=== PATIENT | male | born 1955 | race Caucasian/White ===

== ENCOUNTER → 2023-06-15 | Outpatient (CLI) | payer MEDICARE, OTHER, SELFPAY ==
--- NOTE | 2023-06-15 12:55 | ART_ITS ---
Reason For Study: Stricture of artery Procedure A bilateral lower extremity continuous wave Doppler with analog waveform analysis and ankle brachial indexes. Left Segmental Pressures Left brachial= 130mmHg. Left posterior tibial artery = 171mmHg. Left dorsalis pedis artery = 166mmHg. Left digit = 128 mmHg. The left dorsalis pedis waveforms are triphasic. The left posterior tibial artery waveforms are triphasic. Right Segmental Pressures Right brachial= 127mmHg. Right posterior tibial artery = 180mmHg. Right dorsalis pedis artery = 179mmHg. Right digit = 115 mmHg. The right dorsalis pedis waveforms are triphasic. The right posterior tibial artery waveforms are triphasic. Indices The right ankle brachial index by the dorsalis pedis is 1.38. The right ankle brachial index by the posterior tibial artery is 1.38. The right digital-brachial index is 0.88. The left ankle brachial index by the dorsalis pedis is 1.28. The left ankle brachial index by the posterior tibial artery is 1.32. The left digital-brachial index is 0.98. VL/Ankle Brachial Index Interpretation Summary Bilateral normal at rest with GALE 1.38 and 1.28. Digits 0.88 and 0.98. Ordering Physician: Gorge Montez Referring Physician: Merna Israel Performed By: Caitlin Bean RVT
== END | disposition home or self-care (01) ==
LOC: CVS 12:54
PROVIDERS: PCP Internal Medicine; Referring Provider Surgery Vascular Surgery; Visit Provider Surgery Vascular Surgery
DX: I77.1 Stricture of artery (principal); I70.213 Atherosclerosis of native arteries of extremities with intermittent claudication, bilateral legs
CPT/HCPCS: 93922

== ENCOUNTER → 2024-06-08 | Outpatient (CLI) | payer MEDICARE, OTHER, SELFPAY ==
--- NOTE | 2024-06-08 12:28 | RAD_ITS ---
CLINICAL HISTORY: Male, 69 years old. Anterior cruciate ligament injury. PROCEDURE: ARTHROGRAM - LEFT KNEE CONSENT: The procedure as well as the benefits and possible complications were explained to the patient. Informed consent was obtained. FLUOROSCOPY TIME (if supplied): (48 seconds) minutes/seconds. 3.6 mGy. Injection Information: 10 cc of dilute MRI contrast material. Number of images obtained: 1 TECHNIQUE: (All elements of maximal sterile barrier technique followed, including US elements as applicable) Under direct fluoroscopic guidance, a right knee arthrogram was performed with a 22-gauge spinal needle. 10 cc of dilute MRI contrast was injected. The patient tolerated the procedure well. RAD/Arthrogram Knee IMPRESSION: Right knee arthrogram for CT examination. Electronically Signed: Josh Morin MD at 13:40 EDT ,
--- NOTE | 2024-06-08 12:29 | CT_ITS ---
STUDY: CT ARTHROGRAM OF THE RIGHT KNEE REASON FOR EXAM: Male, 69 years old. Sprain of anterior cruciate ligament of right knee, subsequent encounter. RADIATION DOSAGE (If Supplied By Facility): CTDIvol = ( 15.35 ) mGy, DLP = ( 480.41 ) mGycm TECHNIQUE: Dilute iodinated contrast was injected into the right knee joint. Transaxial CT imaging of the right knee was performed. Coronal and sagittal reformatted images were also obtained. Individualized dose optimization techniques were used for this CT. COMPARISON: None. FINDINGS: There is a suspected tear of the ACL (sagittal reformat series 601 images 32-33). There is no discrete meniscal tear. Normal medial femoral condyle and medial tibial plateau. There is preservation of the articular joint space of the medial knee compartment. Normal lateral femoral condyle and lateral tibial plateau. There is preservation of the articular joint space of the lateral knee compartment. There is moderate grade chondromalacia patellae. Normal proximal tibiofibular articulation. The quadriceps tendon is grossly normal. The patellar tendon is grossly normal. Normal Hoffa''s fat pad. The soft tissues are unremarkable. CT/Extremity Lower WITH Contrast IMPRESSION: Suspected ACL tear. Moderate grade chondromalacia patellae. Electronically Signed: Jj Liao MD at 14:46 EDT ,
[2024-06-08] MEDS: Lidocaine 2% (5ml sdv) 5 ML VIAL.MPF INFILT (13:10)
[2024-06-08] MEDS: Gadoterate Meglumine Diluted 10 ML, Iopamidol 5 ML, Lidocaine 1% (20 ml mdv) 5 ML, Epin... INTRAARTIC (13:13)
[2024-06-08] MEDS: Iopamidol 10 ML in Syringe 1 EACH 600 ML INTRAARTIC (13:13)
--- NOTE | 2024-06-08 13:41 | PCM.OP.PRO ---
Procedure Report Date of Procedure: 06/08/24 Assessment & Plan Assessment/Plan (1) Sprain of right knee: QUALIFIERS: Encounter type: initial encounter Involved ligament of knee: unspecified ligament Qualified Code(s): S83.91XA - Sprain of unspecified site of right knee, initial encounter PLAN: PROCEDURE: Arthrogram-right knee ORDERING PROVIDER: Dr. Hogan INDICATION: Male, 69 years old. Right knee sprain. FLUOROSCOPY TIME (if supplied): 0 minutes/48 seconds. 2.9 mGy PROVIDER: Casie Irwin APRN-RESTAURANT SHIFT SUPERVISOR CONSENT: The procedure as well as the benefits and possible complications including bleeding and infection were explained to the patient. Informed consent was obtained. TECHNIQUE: The patient was positioned supine. The overlying skin was prepped and draped in the usual sterile fashion. Following injection of local anesthetic with 2% lidocaine and under direct fluoroscopic guidance, a 22-gauge spinal needle was placed into the right knee joint. 2 cc of Isovue 300 was injected for confirmation. Following this, 10 cc of arthrogram contrast (gadoterate, iopamidol, lidocaine, and epinephrine), compounded by pharmacy, was injected. All elements of maximal sterile barrier technique followed. Patient tolerated procedure well. IMPRESSION: Successful fluoroscopic guided right knee arthrogram. Procedures Radiology Radiology Xray Procedures: [id number] Arthrogram Knee Multi Select Codes Radiology Rad Xray Procedures: [id number] Fluoroscopic guidance for needle placement
== END | disposition home or self-care (01) ==
LOC: RAD 12:25
PROVIDERS: PCP Internal Medicine; Referring Provider Specialist; Visit Provider Specialist
DX: S83.511D Sprain of anterior cruciate ligament of right knee, subsequent encounter (principal); M25.361 Other instability, right knee
CPT/HCPCS: 27369; 73580; 73701; Q9967

== ENCOUNTER 2024-11-22 11:40 | Inpatient (IN) | payer MEDICARE, OTHER, SELFPAY ==
[2024-11-22 13:37] LABS: Absolute Lymphocyte Count 0.97 X10^3/uL (0.83-4.51); Absolute Neutrophil Count 10.4 X10^3/uL (2.0-7.7); Basophil# 0.02 X10^3/uL; Basophil% 0.2 % (0-1); Eosinophil# 0.11 X10^3/uL; Eosinophils% 0.9 % (0-5); Hematocrit 33.7 % (40-54); Hemoglobin 11.3 g/dL (13.0-16.5); Lymphocyte # 0.97 X10^3/ul (0.83-4.51); Lymphocyte % 7.6 % (19-41); Mean Corp Hgb Conc 33.5 g/dL (32-36); Mean Corpuscular Hgb 29.6 pg (27.0-32.0); Mean Corpuscular Volume 88.2 fL (80-94); Mean Platelet Vol. 8.8 fl (6.2-12.0); Monocyte# 1.19 X10^3/uL; Monocyte% 9.4 % (0-10); NRBC Flagged by Analyzer 0 % (0-5); Neutrophil # 10.39 X10^3/uL (2.7-7.7); Neutrophil % 81.7 % (47-70); Platelet Count 236 K/mm3 (150-450); RBC Distribution Width CV 12.7 % (11.6-14.6); RBC Distribution Width SD 40.8 fl (35.1-43.9); Red Blood Count 3.82 M/mm3 (4.6-6.2); White Blood Count 12.7 K/mm3 (4.4-11.0)
[2024-11-22] MEDS: Haloperidol Lactate 5 MG/ML Vial 2 MG IM (13:43)
[2024-11-22] MEDS: cycloBENZAPRine HCl 10 MG Tablet PO ×2 (13:50→21:45)
[2024-11-22] MEDS: Acetaminophen 500 MG Tablet 1000 MG PO ×2 (13:50→21:44)
[2024-11-22 13:54] LABS: ALB/GLOB Ratio 0.8 RATIO (0.9-2.4); AST(SGOT) 29 U/L (15-37); Alanine Aminotransfer ALT/SGPT 41 U/L (16-61); Albumin, Serum 2.6 g/dL (3.2-5.0); Alkaline Phosphatase 85 U/L (45-117); Anion Gap 9 (5-15); BUN 20 mg/dL (7-18); BUN/Creat Ratio 29.4 RATIO (10-20); Calcium,Total 8.5 mg/dL (8.5-10.1); Chloride 100 mmol/L (98-107); Creatinine, Serum 0.68 mg/dL (0.70-1.30); EST Glomerular Filtration Rate 122 mL/min (>60); Est Glom Filt Rate - Afr Amer 148 mL/min (>60); Globulin 3.4 g/dL (2.2-4.2); Glucose 169 mg/dL (74-106); Magnesium 2.2 mg/dL (1.6-2.6); Phosphorus 2.3 mg/dL (2.5-4.9); Potassium 3.8 mmol/L (3.5-5.1); Sodium Level 133 mmol/L (136-145)
[2024-11-22 14:27] VITALS: BMI 29.4
[2024-11-22 14:28] VITALS: BP 128/60; PULSE 60; RESP 18; TEMP 36.6; O2SAT 90
[2024-11-22 14:42] LABS: Bacteria 0 SEEN /hpf (None Seen); Mucous, Urine 0 SEEN /hpf (<or=2+)
[2024-11-22 14:51] LABS: Color, Urine Yellow (Yellow); Glucose, Dipstick 1000 mg/dl (Normal); Ketone-Dipstick 15 mg/dl (Negative); Leukocyte Esterase-Dipstick 100 /ul (Negative); Nitrite-Dipstick Negative (Negative); Occult Blood-Urine 250 /ul (Negative); Protein-Dipstick 30 mg/dl (Negative); Urine Bilirubin Dipstick Negative (Negative); Urine Clarity Sl. Cloudy (Clear); Urine Urobilinogen 1 mg/dl (Normal)
[2024-11-22 14:57] LABS: Red Blood Cells-Urine 25-50 SEEN /hpf (0-5); Squamous Epithelial Cells - UA 0-5 SEEN /hpf (0-5); White Blood Cells 10-25 SEEN /hpf (0-5)
[2024-11-22 14:58] LABS: Yeast-Urine RARE /hpf (None Seen)
[2024-11-22 17:02] LABS: Bedside Glucose 152 mg/dL (74-106)
[2024-11-22] MEDS: glipiZIDE XL 5 MG Tablet 10 MG PO (17:52)
[2024-11-22] MEDS: Smz/Tmp Ds Tablet 1 TABLET PO (17:53)
[2024-11-22 18:00] VITALS: BP 135/66; PULSE 60; RESP 18; TEMP 37.1; O2SAT 94
[2024-11-22 20:09] VITALS: PULSE 60; RESP 18; O2SAT 92
[2024-11-22] MEDS: Senna/Docusate Sodium 1 Tablet 2 TABLET PO (21:44)
[2024-11-22] MEDS: Sotalol Hydrochloride 80 MG Tablet 120 MG PO (21:44)
[2024-11-22] MEDS: Atorvastatin Calcium 10 MG Tablet PO (21:45)
[2024-11-22 22:07] LABS: Bedside Glucose 148 mg/dL (74-106)
--- NOTE | 2024-11-22 23:44 | NURSING ---
pt resting in bed awake, talking to self, reaching in air with both arms like he is working on something, mentioned electrical box. pt with slurred speech, difficult to understand at times. bed exit alarm in place. call light in reach. RT valdovinos to foot very cold to touch compared to Left. dark dry scab noted on 2nd digit of rt foot. pt denies pain.
[2024-11-23 05:10] VITALS: BP 110/52; PULSE 60; RESP 20; TEMP 37.7; O2SAT 92
[2024-11-23] MEDS: Enoxaparin 40 MG/0.4 ML Syringe SC (05:30)
[2024-11-23] MEDS: Acetaminophen 500 MG Tablet 1000 MG PO ×3 (05:30→21:36)
[2024-11-23] MEDS: cycloBENZAPRine HCl 10 MG Tablet PO (05:30)
--- NOTE | 2024-11-23 06:00 | EKG12_ITS ---
Test Reason : AM EKG Blood Pressure : */* mmHG Vent. Rate : 67 BPM Atrial Rate : 67 BPM P-R Int : 248 ms QRS Dur : 192 ms QT Int : 544 ms P-R-T Axes : * -22 106 degrees QTcB Int : 574 ms AV dual-paced rhythm with prolonged AV conduction with occasional ventricular- paced complexes Abnormal ECG No previous ECGs available Confirmed by LORRI VERDUZCO, STANLEY ([id number]), website/blog editor MARCELL WINSLOW ([id number]) on 11/27/2024 1:58:09 PM Referred By: Donna Walton Confirmed By: STANLEY BLACKMON MD
[2024-11-23 07:48] LABS: Bedside Glucose 164 mg/dL (74-106)
[2024-11-23] MEDS: hydroCHLOROthiazide 6.25mg TAB 12.5 MG PO (09:06)
[2024-11-23] MEDS: metFORMIN (XR) 500 MG Tablet 750 MG PO (09:06)
[2024-11-23] MEDS: Fluconazole 100 MG Tablet 200 MG PO (09:06)
[2024-11-23] MEDS: Losartan Potassium 100 MG Tablet PO (09:06)
[2024-11-23] MEDS: Multivitamins,Therapeutic Tablet 1 TABLET PO (09:06)
[2024-11-23] MEDS: Empagliflozin 25 MG Tablet PO (09:06)
[2024-11-23] MEDS: Famotidine 20 MG Tablet PO (09:06)
[2024-11-23] MEDS: Senna/Docusate Sodium 1 Tablet 2 TABLET PO ×2 (09:06→21:35)
[2024-11-23] MEDS: glipiZIDE XL 5 MG Tablet 10 MG PO (09:06)
[2024-11-23] MEDS: Aspirin E.C. 81 MG Tablet PO (09:07)
[2024-11-23] MEDS: Smz/Tmp Ds Tablet 1 TABLET PO (09:07)
--- NOTE | 2024-11-23 09:27 | PCM.HP.STD ---
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 He has had a known mass of the spinal cord since 2019. The mass was being monitored and no intervention was done. Recently he has been having a lot of falls, difficulty walking and bowel and bladder incontinence. On 11/14/2024 at [facility] he underwent C4-T3 posterior decompression and fusion with tumor debulking. Preoperatively he had a transthoracic echocardiogram that showed an EF of 45 to 50% with left ventricular hypokinesis. No atrial thrombus was observed. Bilateral lower extremity ultrasounds were obtained and were negative for DVT. He had a Mitchell catheter placed for urine retention and developed a UTI. He has been on Bactrim. we received no culture results. He also had yeast in the urine and was started on Diflucan. He has QT prolongation. He has had confusion which was attributed to UTI but, he has been progressively more confused despite antibiotics. A CTH was on on 11/20/24 per the therapy notes but, the results were not forwarded from [facility] with the notes we received. The physician PN from 11/21/24 says he is A and oriented X3. Therapy notes from 11/20/24 say he was mildly confused. His tells me that over the past 3 days the confusion has increased. The physician note from 11/21 also says the face is symmetric and he had 5/5 strength in the LLE with weakness in the R arm and R leg. The patient auto dc'd the drain on 11/20/24 while confused. The patient was transferred to the acute inpt rehab unit at [facility] on 11/22/24 for 3 hours of therapy daily to restore function/independence at or near his level prior to the recent surgery.. At arrival he was markedly confused, restless, trying to climb out of bed and not cooperative. We were told on 11/22/24 by [facility] that he was A&O X3 at the time of DC. He had a Mitchell catheter present at admission to rehab. He is not on medication for BPH. He was given 2 mg of Haldol IM and he calmed down and was more cooperative. He is febrile today with a temp of 99.8. VSS-blood pressures since arrival on rehab have ranged from 110/52 to 135/66. Heart rate is 60 and EKG shows completely paced. The QTc is 574. Maintaining appropriate oxygen saturation on RA-98 to 94%. Oral intake - FLUIDS poor blood sugars have ranged from 1 48-1 64 since arrival on acute rehab. The blood sugar record was reviewed. Discussed with nursing -markedly confused. Incontinent of stool. Reviewed the THERAPY notes Medication list reviewed. All lab was personally reviewed. The white blood cell count is elevated at 12.7 with 82% neutrophils. The white blood cell count at [facility] on 11/21/2024 was 10.6. Hemoglobin is 11.3. With normochromic normocytic indices. Platelets are within normal limits. Sodium is low at 133 which is stable. Serum bicarb is normal at 24. The BUN is 20 with a creatinine of 0.68 which is stable. Phosphorus is low at 2.3 and magnesium is 2.2. LFTs are unremarkable. UA from admission shows 25-50 RBCs per high-power field and 10-25 WBCs. Was nitrite negative. No bacteria seen. No DC summary from [facility]. No cultures sent. No mention of increased confusion on 11/20/24 and no mention of results of the CT head done 11/20/24.......this was only mentioned in a therapy note. Deondre's Amanda came in and I was able to review the MY CHART from [facility]. Urine culture only grew yeast so no need for Bactrim. Last CXR from 11/18/2024 showed no infiltrates and did not mention atelectasis. The patient recheck prior to surgery showed he was 99% paced. Pathology report is still pending at the time of discharge from [facility]. Echocardiogram showed a 50% ejection fraction with stage I diastolic dysfunction. Aortic root was mildly dilated. No significant valvular heart disease. No thrombus in the ventricles. Ester tells me that the gibberish that he has been speaking is new and he is also been having trouble with word finding. 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 He has been weak on his right side in the recent past however he was able to hold a cup with his right hand and use his right hand but now he cannot even hold a fork or a cup with his right hand. So he has increased weakness and increased numbness. The right leg has been weak. She tells me the left side was very limp/weak while at [employer]. Now he is trying to push with his left lower extremity and left arm when we ask him to move his right side. 1. LOC Alert: 0 2. LOC/Orientation: 2 3. LOC Commands: 0 4. Horizontal extraocular movements : 1 5. Visual sheriff: 0 6. Facial Paresis: 1 7. Motor arm left: 0 8. Motor arm right: 1 9. Motor leg left: 2 10. Motor leg right: 3 11. Limb ataxia: 0 12. Sensory: 2 13. Best language: 1 14. Dysarthria: 2 15. Extinction and inattention: 1 Total score 16 [facility] Medical History (Updated 11/24/24 @ 13:[address] Donna Walton, ) Diabetes mellitus, type 2 Spinal cord tumor Myocardial infarction Afib HTN (hypertension) Pacemaker Home Medications ?Medication ?Instructions ?Recorded ?Last Taken ?Type aspirin 81 mg tablet,delayed 81 mg PO DAILY heart health 12/31/22 11/22/24 History release (Adult Aspirin Regimen) hydrochlorothiazide 25 mg tablet 12.5 mg PO DAILY HTN 12/31/22 Unknown History losartan 100 mg tablet 100 mg PO DAILY HTN 12/31/22 11/22/24 History sotalol 120 mg tablet 120 mg PO QHS heart 12/31/22 11/21/24 History clopidogrel 75 mg tablet 75 mg PO DAILY afib 06/03/23 Unknown History Held on 11/22/24. Instructions: Ordered glipizide 10 mg tablet, extended 10 mg PO BID DM #180 tabs 06/19/24 11/22/24 Rx release 24 hr empagliflozin 25 mg tablet 25 mg PO DAILY DM #90 tabs 07/18/24 Unknown Rx (Jardiance) tirzepatide 5 mg/0.5 mL 5 mg (0.5 mL) subcut QWEEK DM #2 mL 10/23/24 Unknown Rx subcutaneous pen injector (Mounjaro) Held on 11/22/24. Instructions: MD Ordered acetaminophen 500 mg tablet 1,000 mg PO Q8 PRN pain 11/22/24 Unknown History cyclobenzaprine 10 mg tablet 10 mg PO TID muscle spasm 11/22/24 11/22/24 History enoxaparin 40 mg/0.4 mL 40 mg subcut DAILY DVT Prophylaxis 11/22/24 11/22/24 History subcutaneous syringe (Lovenox) famotidine 20 mg tablet (Pepcid) 20 mg PO DAILY reflux 11/22/24 11/22/24 History fluconazole 200 mg tablet 200 mg PO DAILY ATB 11/22/24 11/22/24 History metformin 750 mg tablet,extended 750 mg PO DAILY DM 11/22/24 Unknown History release 24 hr multivitamin (Daily Multi-Vitamin 1 tab PO DAILY supplement 11/22/24 Unknown History tablet) oxycodone 5 mg tablet 5 mg PO Q6H PRN pain 11/22/24 Unknown History rosuvastatin 5 mg tablet 5 mg PO QHS cholesterol 11/22/24 11/21/24 History sulfamethoxazole 800 1 tab PO Q12H ATB 11/22/24 11/22/24 History mg-trimethoprim 160 mg tablet Allergy/AdvReac Type Severity Reaction Status Date / Time Penicillins Allergy Rash Verified 06/07/24 08:11 lisinopril AdvReac Cough Verified 06/07/24 08:11 Family History unable to obtain Surgical History (Updated 11/23/24 @ 11:[address] Donna Walton, DO) Status post laminectomy with spinal fusion History of total right knee replacement Stented coronary artery Social History Smoking Status: Never smoker alcohol intake: current alcohol intake frequency: holidays/special occasions only Alcohol type: beer substance use type: does not use ROS Review of Systems ROS Unobtainable: due to encephalopathy and due to mental status Vital Signs Vital Signs Vital Signs: 11/22/24 14:28 11/22/24 18:00 11/22/24 19:54 Temperature 97.9 F 98.7 F Temperature Source Temporal Temporal Pulse Rate 60 60 Pulse Strength Normal (2+) Respiratory Rate 18 18 Respiratory Effort Respiratory Depth Respiratory Pattern Blood Pressure 128/60 H 135/66 H Blood Pressure Mean 82 89 Blood Pressure Source Monitor Monitor Blood Pressure Position Semi-Fowlers Semi-Fowlers Blood Pressure Location Right Arm Right Arm Pulse Ox 90 94 Oxygen Delivery Method Room Air Room Air 11/22/24 20:09 11/23/24 05:10 Temperature 99.8 F H Temperature Source Temporal Pulse Rate 60 60 Pulse Strength Respiratory Rate 18 20 H Respiratory Effort Normal Non-Labored Respiratory Depth Normal Respiratory Pattern Normal Blood Pressure 110/52 L Blood Pressure Mean 71 Blood Pressure Source Monitor Blood Pressure Position Supine Blood Pressure Location Left Arm Pulse Ox 92 92 Oxygen Delivery Method Room Air Room Air Weight Weight: 210 lb 15.718 oz Body Mass Index (BMI) 29.4 Physical Exam Const Constitutional Narrative: He is awake, confused, picking at things that aren't there in the air. Able to follow some simple commands. could tell me his name and that he is in a hospital. Could not tell me his age or the month or year. does not know why he is here. More cooperative today. General Appearance: well developed HEENT head/scalp atraumatic HEENT Narrative: MM are VERY dry. Neck is supple with no nuchal rigidity. No cervical adenopathy. No facial asymmetry. Hearing seems grossly intact. Eyes are disconjugate. Can follow my finger but can not go all the way to the R lateral canthus........and then the Left eye will move laterally to the left. Pupils are equal round and reactive to light. Eyes conjunctivae normal and no scleral icterus Eyes Narrative: No discharge from the eyes. Disconjugate gaze. Neck No nuchal rigidity, supple, no meningeal signs and No nodes Chest Chest Narrative: ABle to take deep breaths on demand Chest: symmetrical chest wall rise Resp normal respiratory effort, no retractions and no use of accessory muscles Resp Narrative: persistent coarse crackles in the R base after several deep breaths. He is CTA everywhere elss. Not tachypneic. Effort and Inspection: able to speak in complete sentences Cardio regular rate and regular rhythm Cardio Narrative: EKG shows that he is completely paced. The rhythm is AV dual paced. QTc is markedly prolonged at 574. Heart sounds are somewhat distant. No murmur appreciated. No JVD. GI normal to inspection, nondistended, normoactive bowel sounds and soft to palpation GI Narrative: No guarding with palpation Bladder / Kidney Exam: catheter in place urethral (Urine in the tubing and in the Mitchell bag is pale yellow and clear. Has been on hydrochlorothiazide. Very poor oral intake. ) Extremity no calf tenderness and no pedal edema Extremity Narrative: No heel ulcers. Skin no jaundice Skin Narrative: the spine incision is intact with no dehiscence, no rosa m-incisional warmth to touch, no DC, no c/o pain with palpation around the incision. He has a small stage 2 decubitus ulcer on the R buttock. No evidence of infection. No rashes. Neuro Neuro Narrative: Awake and oriented x 1. Reaching out with his arms and appears to be trying to grab something but there is nothing there. Somewhat restless. Speech is slurred. No facial asymmetry. Pupils are equal round and reactive to light. He has disconjugate gaze. Hearing seems grossly intact. Able to follow most simple commands. He was cooperative with me. He has weakness in both lower extremities but, the R is much weaker than the left. He has decreased sensation in the right lower extremity. Decreased sensation in the R arm too. He has a R facial droop. Babinski is down going on the left but, I could not get a response on the R. Not ataxic in the UE's. could not test the Legs due to weakness and inability to do what I asked. Gets overwhelmed and then can not answer me. No visual filed cuts. No visual extinction. Extraocular muscles seem to be intact but gaze is often disconjugate. Psych Psych Narrative: Very confused and restless but, he is cooperating much better than yesterday. Results Lab / Micro Data 11/23/24 11:25 11/24/24 11:02 Labs: Laboratory Results - last 24 hr 11/22/24 13:23: WBC 12.7 H, RBC 3.82 L, Hgb 11.3 L, Hct 33.7 L, MCV 88.2, MCH 29.6, MCHC 33.5, RDW Std Deviation 40.8, RDW Coeff of Magdalena 12.7, Plt Count 236, MPV 8.8, Immature Gran % (Auto) 0.200, Neut % (Auto) 81.7 H, Lymph % (Auto) 7.6 L, [place] % (Auto) 9.4, Eos % (Auto) 0.9, Baso % (Auto) 0.2, Absolute Neuts (auto) 10.4 H, Absolute Lymphs (auto) 0.97, Nucleated RBC % 0, Sodium 133 L, Potassium 3.8, Chloride 100, Carbon Dioxide 24.0, Anion Gap 9, BUN 20 H, Creatinine 0.68 L, Est GFR (MDRD) Af Amer 148, Est GFR (MDRD) Non-Af 122, BUN/Creatinine Ratio 29.4 H, Glucose 169 H, Calcium 8.5, Phosphorus 2.3 L, Magnesium 2.2, Total Bilirubin 0.40, AST 29, ALT 41, Alkaline Phosphatase 85, Total Protein 6.0 L, Albumin 2.6 L, Globulin 3.4, Albumin/Globulin Ratio 0.8 L 11/22/24 14:35: Urine Color Yellow, Urine Clarity Sl. Cloudy, Urine pH 6.0, Ur Specific Comer 1.020, Urine Protein 30 H, Urine Glucose (UA) 1000 H, Urine Ketones 15 H, Urine Occult Blood 250 H, Urine Nitrite Negative, Urine Bilirubin Negative, Urine Urobilinogen 1 H, Ur Leukocyte Esterase 100 H, Urine RBC 25-50 SEEN, Urine WBC 10-25 SEEN, Ur Squamous Epith Cells 0-5 SEEN, Urine Bacteria 0 SEEN, Urine Mucus 0 SEEN, Urine Yeast RARE 11/22/24 16:38: POC Glucose 152 H 11/22/24 21:34: POC Glucose 148 H 11/23/24 07:20: POC Glucose 164 H Assessment & Plan Assessment/Plan (1) Debility: (2) Spinal cord tumor: (3) Status post laminectomy with spinal fusion: PLAN: 11/14/2024 at [facility] by Dr. Joel Leary (4) Ischemic cerebrovascular accident (CVA): (5) Encephalopathy acute: (6) Facial droop: (7) Right sided weakness: (8) Aphasia: (9) Dysarthria: (10) Dysphagia: (11) Kevin-neglect of right side: (12) Urine retention: (13) UTI (urinary tract infection): (14) Mitchell catheter in place: (15) Dehydration: (16) Diabetes mellitus, type 2: (17) Hyponatremia: (18) HTN (hypertension): QUALIFIERS: Hypertension type: unspecified Qualified Code(s): I10 - Essential (primary) hypertension (19) High cholesterol: PLAN: Plan PLAN PT for gait stability OT for ADL's ST for evaluation - daniella for swallowing at this point. Cognition eventually. Analgesics as needed Bowel protocol Fall precautions Assess for Anxiety/Depression GI prophylaxis -famotidine 20 mg daily DVT prophylaxis with Lovenox 40 mg subcu daily Follow up neurology, neurosurgery, PCP, cardiology ALL lab including CMP, CBC, Mag, urine analysis and Phos - all personally reviewed. Lactic acid, ESR, CRP, procalcitonin, repeat CBC with diff, BC's X 1. Urine culture sent 11/22/24 - No growth to date. CXR done - mild atelectasis. CT head without contrast.....no acute findings. He has diffuse cerebral atrophy with decreased attenuation in the quintero-white matter junction suggestive of chronic small vessel disease. CTA of the head neck shows no LV disease. Mild calcific plaque in both ICA's. Start Cefepime and Vancomycin and await the results of the lab ordered for today. His mind has been racing and he has been having some hallucinations. Not sleeping well at night. Will try 0.5 mg of Risperdal tonight. IV NS ordered to hydrate. Has been seen by ST and he is impulsive and having trouble with swallowing. Small bites and sips with supervision with meals. Possible MBS or FEES in future. Will also need cognitive therapy. Will contact neurosurgery and see if OK to add Clopidogrel to the drug regimen. Charges/Coding Visit Charges Inpatient E&M: 04715 Init Hosp L3
--- NOTE | 2024-11-23 10:11 | CT_ITS ---
EXAM: BRAIN/HEAD WITHOUT CONTRAST CLINICAL HISTORY: Altered mental status. Confusion. COMPARISON: Comparison is made with prior study dated November 20, 2024. CLINICAL INDICATION: TECHNIQUE: Helical imaging of CT head was performed without IV contrast. One or more of the following dose reduction techniques were used: automated exposure control, adjustment of the mA and/or kV according to patient size, use of iterative reconstruction technique. FINDINGS: Diffuse cerebral atrophy with decreased attenuation in the quintero-white matter junction suggestive of chronic small-vessel disease. There has been no change. MIDLINE SHIFT: None. VENTRICLES: No evidence of hydrocephalus. SCALP SOFT TISSUES: No significant abnormality. CALVARIUM: No acute process. VISUALIZED PARANASAL SINUSES: Partial opacification of the right ethmoid sinus. MASTOID AIR CELLS: Grossly clear. CT/Brain/Head without Contrast IMPRESSION: No evidence of acute intracranial abnormality. Stable cerebral atrophy. Reading Location: [place] [id number]
--- NOTE | 2024-11-23 10:24 | CT_ITS ---
PROCEDURE: CTA HEAD AND NECK W/ CONTRAST REASON FOR EXAM: Confusion. Altered mental status. TECHNIQUE: CTA imaging of the head and neck from the aortic arch to the skull vertex with intravenous contrast. 3D reconstructions. CONTRAST: COMPARISON: Comparison is made with prior unenhanced CT scan of the brain done earlier today. FINDINGS: Aortic Arch: Normal size and branching pattern. Mild atherosclerotic plaque. Brachiocephalic and Subclavians: Mild atherosclerotic plaque without significant stenosis. RIGHT Carotid: Right CCA: Unremarkable. Right ICA: Mild calcified and soft plaque. Maximum stenosis (NASCET): 30% % Right ECA: Unremarkable. LEFT Carotid: Left CCA: Unremarkable. Left ICA: Mild calcified and soft plaque. Maximum stenosis (NASCET): 30 % Left ECA: Unremarkable. Vertebrals: Codominant. Arise from the subclavians. Both vertebrals form the basilar. RIGHT Vertebral: Unremarkable. LEFT Vertebral: Unremarkable. No intracranial aneurysms or large vascular malformations are identified. Anterior cerebral arteries: Unremarkable. Middle cerebral arteries: Unremarkable. Basilar artery: Unremarkable. Posterior cerebral arteries: Unremarkable. Other major branches of the posterior circulation: Unremarkable. Major venous structures: Unremarkable. Other findings: No lymphadenopathy. Lung apices are clear. Bones are unremarkable. CT/CTA Head AND Neck W/ Contrast IMPRESSION: RIGHT CAROTID: Mild calcific plaque at the origin of the right internal carotid artery LEFT CAROTID: Mild calcific plaque at the origin of the left internal carotid a rtery VERTEBRALS: Unremarkable INTRACRANIAL: Calcific plaques of the cavernous portions of the internal caroti d arteries bilaterally. One or more dose reduction techniques were used (e.g., Automated exposure contr ol, adjustment of the mA and/or kV according to patient size, use of iterative reconstruction technique). Reading Location: [place] [address]
--- NOTE | 2024-11-23 10:32 | RAD_ITS ---
PROCEDURE: CHEST 1 VIEW (PORTABLE) REASON FOR EXAM: Right-sided crackles. TECHNIQUE: Frontal view of the chest. COMPARISON: Yesterday FINDINGS: Mild elevation of the right hemidiaphragm. Mild increased markings at the lung bases suggestive of mild bibasilar atelectasis slightly more prominent at the left lung base. Heart size is mildly enlarged. Left-sided dual-chamber pacemaker is seen. Prior fusion of the lower cervical spine. Degenerative changes of the thoracic spine. RAD/Chest 1 View (Portable) IMPRESSION: Findings suggestive of mild bibasilar atelectasis slightly more prominent on th e left side. Reading Location: [place] [address]
[2024-11-23 11:05] VITALS: O2SAT 92
[2024-11-23 11:36] LABS: Absolute Lymphocyte Count 1.36 X10^3/uL (0.83-4.51); Absolute Neutrophil Count 7.7 X10^3/uL (2.0-7.7); Basophil# 0.03 X10^3/uL; Basophil% 0.3 % (0-1); Eosinophil# 0.16 X10^3/uL; Eosinophils% 1.5 % (0-5); Hematocrit 33.6 % (40-54); Hemoglobin 11.1 g/dL (13.0-16.5); Lymphocyte # 1.36 X10^3/ul (0.83-4.51); Mean Corpuscular Hgb 29.1 pg (27.0-32.0); Mean Corpuscular Volume 88.2 fL (80-94); Mean Platelet Vol. 8.5 fl (6.2-12.0); Monocyte# 1.19 X10^3/uL; Monocyte% 11.4 % (0-10); NRBC Flagged by Analyzer 0 % (0-5); Neutrophil # 7.66 X10^3/uL (2.7-7.7); Neutrophil % 73.4 % (47-70); Platelet Count 251 K/mm3 (150-450); RBC Distribution Width CV 12.7 % (11.6-14.6); RBC Distribution Width SD 40.9 fl (35.1-43.9); Red Blood Count 3.81 M/mm3 (4.6-6.2); White Blood Count 10.4 K/mm3 (4.4-11.0)
[2024-11-23 11:47] LABS: Erythrocyte Sedimentation Rate 29 mm/hr (0-20)
--- NOTE | 2024-11-23 11:56 | PCM.RU.PYE ---
Admission Information Primary Diagnosis:: DEBILITY Status Changes from Prescreening?: Medical (exam is consistent with acute CVa that likely occurred a few days prior to admission. ) Actual Problem List:: Falls, Skin Intergrity, Pain, ALteration in Cmfrt, Bladder Incontinence (Urinary retention with UTI present at admission and Mitchell catheter in place), Bowel, Incontinence, Alteration in Sleep, Alteration in Nutrition, Mobility Impaired, Self Care Deficit, Know.Dfct/Disease Process, Diabetes, Hyperglycemia, BP, Hypertension and Fluid Change-Dehydration Potential Problem List:: DVT, Bleeding, Infection, UTI, Aspiration, Falls, Skin Integrity and Depression Risk of Complications DVT: LMWH and ANNIA Hose Bleeding: Monitor Lab Values, Nursing to Teach Precautions for anti-coagulation therapy., Wound, if applicable, to be assessed every shift. and Stroke patients assessed for lethargy or change in status. Infection: Clinical Staff to Monitor for S/S of infection: and S/S of infection include fever, redness, warmth, etc. Urinary Tract Infection: Monitor for frequency, burning, discomfort, or incontinence. and Nursing will obtain urine sample for urinalysis and C&S when ordered. Aspiration: Clinical staff will monitor for coughing, drooling, congestion., Speech will evaluate swallowing and dsyphasia. and Nursing will monitor patient swallowing during meals. Falls: Patient will be evaluated for Fall Precautions and Patient will be placed on Fall Precautions as indicated per protocol. Skin Breakdown: Nursing will assess skin daily using assessment tool. and Nursing will place on Skin Breakdown Precautions as indicated. Pain: Clinical staff will assess patient's pain level per protocol., Medications will be given, if needed, and the pain level reassessed. and Other methods: Massage, distraction, decrease stimulus, etc. used PRN. Plan of Care Patient requires physician specializing in physical medicine and rehab oversight to provide close medical supervision of rehab issues including: Pain Management, Sleep Problems, Bowel and Bladder, Medical and co-morbidity Management, DVT prophylaxis, Rehabilitation Leadership and Coordination of treatment team Patient needs Physical Therapy: For a minimum of 1 hour and At least 5 out of 7 days Patient needs Physical Therapy to improve:: Mobility, Strengthening, Transfers, Stretching, ROM, Endurance, Stairs, Gait and Balance Patient needs Occupational Therapy: For a minimum of 1 hour and At least 5 out of 7 days Patient needs Occupational Therapy to improve ADL's incl.: Eating, Grooming, Bathing, Dressing, Toileting, Toilet transfers, Community Reintegration, Higher functioning activities, Household tasks, Adaptive Equipment, Splinting and Other activities as determined Patient requires speech therapy: For a minimum of 1 hour and At least 5 out of 7 days Patient requires speech therapy for: Swallowing, Cognition, Language Skills and Compensatory Strategies Patient requires 24/ Rehabilitation Nursing for: Pain Issues, Identifying and preventing risk factors, Monitoring and reporting current medical conditions, Assisting with ambulation, transfer, and all ADL's, Teaching patients about disease process and medications, Family teaching, Providing safe environment, Bowel and Bladder Issues, Skin integrity and Medication Management Patient needs Farm Tractor Operator/ Case Management for: Discharge Planning, Arranging Home Equipment or Services and Family Interventions Patient needs Dietary and Nutrition Services for: Adequate Nutrition, Nutritional Supplements and Nutritional Education Goals Goals Patient will remain: free from falls Patient will perform eating at: MOD I level of assist. Patient will perform bed mobility at: MOD I level of assist. Patient will complete transfers from bed to chair at: Standby Assist. Patient will ambulate: - (165 feet with least restrictive device at standby assist on various surfaces) Patient will complete upper body dressing at: - (Minimal assistance) Patient will complete lower body dressing at: - (Minimal assistance with adaptive equipment as needed.) Patient will complete toilet transfer at: - (Min assist) Patient will complete toileting at: - (Min assist) Patient will perform bathing at: - (Upper body bathing at minimal assistance and lower body bathing at minimal assistance with adaptive equipment as needed) Patient will perform Tub/Shower transfer at: - (Minimal assistance with DME as needed) Patient will complete grooming at: - (Min assist while seated at the sink) Patient will achieve: - (3 steps with 1 handrail at standby assist) Patient will have pain level of: of 3 or less Patient's skin will: remain intact Patient will receive: adequate nutrition. Discharge Planning Pt Prognosis for Sig. Practical Improv. w/in Reasonable Time: Good Estimated Length of stay (days): 28 Anticipated D/C Destination: TBD Was Preadmission Assessment Accurate?: No
[2024-11-23 11:58] LABS: Lactic Acid 0.9 mmol/L (0.4-1.9)
[2024-11-23] MEDS: 0.9% Normal Saline (1000mL) 1,000 ML 500 ML IV (12:02)
[2024-11-23] MEDS: Vancomycin HCl 1,500 MG in 0.9% Normal Saline (500mL Bag) 500 ML 250 MG IV (12:07)
[2024-11-23 12:19] LABS: Procalcitonin 0.09 ng/mL (0.00-0.09)
[2024-11-23 12:39] LABS: Bedside Glucose 156 mg/dL (74-106)
--- NOTE | 2024-11-23 12:51 | PCM.RX.CS ---
Consult Antibiotic Management Pharmacy has been consulted to manage selected antibiotic: Vancomycin Type of Intervention Type of Consult: New start Suspected Infection Suspected Infection: Sepsis and Other (EMPIRIC) Prior Doses of Antibiotics Prior Doses of Antibiotics Received/Current Regimen: Vancomycin 1500 mg IV x 1 given 11/23/24 @ 1207, patient is also on cefepime 2 grams Q8H Labs Labs: Sodium 133 mmol/L (136-145) L 11/22/24 13:23 Potassium 3.8 mmol/L (3.5-5.1) 11/22/24 13:23 Chloride 100 mmol/L (98-107) 11/22/24 13:23 Carbon Dioxide 24.0 mmol/L (21.0-32.0) 11/22/24 13:23 Anion Gap 9 (5-15) 11/22/24 13:23 BUN 20 mg/dL (7-18) H 11/22/24 13:23 Creatinine 0.68 mg/dL (0.70-1.30) L 11/22/24 13:23 Est GFR (MDRD) Af Amer 148 mL/min (>60) 11/22/24 13:23 Est GFR (MDRD) Non-Af 122 mL/min (>60) 11/22/24 13:23 BUN/Creatinine Ratio 29.4 RATIO (10-20) H 11/22/24 13:23 Glucose 169 mg/dL (74-106) H 11/22/24 13:23 Microbiology Microbiology: Microbiology 11/22/24 14:35 Urine Catheter - Mitchell Urine Culture - Preliminary Culture exhibits no growth. Dosing Weight Weight used for dosin kg Estimated Creatinine Clearance Estimated Creatinine Clearance: ~ 101 Goal Trough Goal Trough: 15-20 mcg/mL Pharmacy Plan for Drug Dosing Pharmacy Plan for Drug Dosing: Vancomycin 1500 mg IV x 1 followed by 1250 mg Q8H Pharmacy Service will continue to monitor and adjust dosing as required. Follow-Up Labs Follow-Up Labs: Trough: Vancomycin Date/Time Labs Ordered Labs to be done on [date and time ordered]: 11/24/24 @ 1130
[2024-11-23] MEDS: Cefepime HCl 2 GM in 0.9% Normal Saline (100mL MB+) 100 ML IV ×2 (15:07→22:44)
[2024-11-23 16:56] LABS: Bedside Glucose 107 mg/dL (74-106)
[2024-11-23] MEDS: Glucerna Shake 120 ML LIQUID PO (17:38)
[2024-11-23] MEDS: 0.9% Normal Saline (1000mL) 1,000 ML 75 ML IV (17:56)
[2024-11-23 18:00] VITALS: BP 126/63; PULSE 60; RESP 18; TEMP 37.3; O2SAT 95
[2024-11-23] MEDS: Vancomycin HCl 1,250 MG in 0.9% Normal Saline (250mL Bag) 250 ML 167 MG IV (19:41)
[2024-11-23] MEDS: Sotalol Hydrochloride 80 MG Tablet 120 MG PO (21:34)
[2024-11-23] MEDS: Atorvastatin Calcium 10 MG Tablet PO (21:35)
[2024-11-23] MEDS: RisperiDONE 0.5 MG Tablet PO (21:36)
[2024-11-23] MEDS: oxyCODONE 5 MG Tablet PO (21:40)
[2024-11-23 22:38] LABS: Bedside Glucose 102 mg/dL (74-106)
[2024-11-24] MEDS: Vancomycin HCl 1,250 MG in 0.9% Normal Saline (250mL Bag) 250 ML 167 MG IV ×3 (03:51→22:02)
[2024-11-24 06:00] VITALS: BP 130/76; PULSE 60; RESP 16; TEMP 36.8; O2SAT 94
[2024-11-24] MEDS: Cefepime HCl 2 GM in 0.9% Normal Saline (100mL MB+) 100 ML IV ×3 (06:06→22:45)
[2024-11-24] MEDS: Enoxaparin 40 MG/0.4 ML Syringe SC (06:09)
[2024-11-24] MEDS: oxyCODONE 5 MG Tablet PO (06:09)
[2024-11-24] MEDS: Acetaminophen 500 MG Tablet 1000 MG PO ×2 (06:09→15:13)
[2024-11-24 07:28] LABS: Bedside Glucose 82 mg/dL (74-106)
[2024-11-24] MEDS: metFORMIN (XR) 500 MG Tablet 750 MG PO (08:31)
[2024-11-24] MEDS: Multivitamins,Therapeutic Tablet 1 TABLET PO (08:31)
[2024-11-24] MEDS: Senna/Docusate Sodium 1 Tablet 2 TABLET PO (08:31)
[2024-11-24] MEDS: Famotidine 20 MG Tablet PO (08:31)
[2024-11-24] MEDS: Glucerna Shake 120 ML LIQUID PO ×3 (08:31→17:50)
[2024-11-24] MEDS: Aspirin E.C. 81 MG Tablet PO (08:31)
[2024-11-24] MEDS: Empagliflozin 25 MG Tablet PO (08:31)
[2024-11-24] MEDS: 0.9% Normal Saline (1000mL) 1,000 ML 75 ML IV (08:55)
[2024-11-24 11:49] LABS: Bedside Glucose 81 mg/dL (74-106)
[2024-11-24 11:51] LABS: Vancomycin, Trough Level 15.2 ug/mL (5.0-15.0)
[2024-11-24 11:54] LABS: EST Glomerular Filtration Rate 176 mL/min (>60); Est Glom Filt Rate - Afr Amer 213 mL/min (>60); Estimated Creatinine Clearance 101.43 ml/min
[2024-11-24] MEDS: Vancomycin Trough/Random Due 1 LAB MC ×2 (12:03)
--- NOTE | 2024-11-24 13:03 | PCM.RX.CS ---
Consult Antibiotic Management Pharmacy has been consulted to manage selected antibiotic: Vancomycin Type of Intervention Type of Consult: Follow-up Prior Doses of Antibiotics Prior Doses of Antibiotics Received/Current Regimen: current dose is vanc 1250mg IV q8h Labs Labs: Sodium 133 mmol/L (136-145) L 11/22/24 13:23 Potassium 3.8 mmol/L (3.5-5.1) 11/22/24 13:23 Chloride 100 mmol/L (98-107) 11/22/24 13:23 Carbon Dioxide 24.0 mmol/L (21.0-32.0) 11/22/24 13:23 Anion Gap 9 (5-15) 11/22/24 13:23 BUN 20 mg/dL (7-18) H 11/22/24 13:23 Creatinine 0.50 mg/dL (0.70-1.30) L 11/24/24 11:02 Est GFR (MDRD) Af Amer 213 mL/min (>60) 11/24/24 11:02 Est GFR (MDRD) Non-Af 176 mL/min (>60) 11/24/24 11:02 BUN/Creatinine Ratio 29.4 RATIO (10-20) H 11/22/24 13:23 Glucose 169 mg/dL (74-106) H 11/22/24 13:23 Vancomycin Trough 15.2 ug/mL (5.0-15.0) H 11/24/24 11:02 Microbiology Microbiology: Microbiology 11/22/24 14:35 Urine Catheter - Mitchell Urine Culture - Preliminary Yeast Like Organism Dosing Weight Weight used for dosin.7 kg Estimated Creatinine Clearance Estimated Creatinine Clearance: 101 ml/min Goal Trough Goal Trough: 15-20 mcg/mL Pharmacy Plan for Drug Dosing Pharmacy Plan for Drug Dosing: The vanc trough drawn at 11:02 today (approx 7 hours after the previous dose) was 15.2. This is in goal so will keep same dose. Repeat a trough in 2 days per protocol. Pharmacy Service will continue to monitor and adjust dosing as required. Follow-Up Labs Follow-Up Labs: Trough: Vancomycin Date/Time Labs Ordered Labs to be done on [date and time ordered]: 11/26/24 11:30
--- NOTE | 2024-11-24 13:48 | PCM.PROGNOTE ---
Subjective Subjective Day #2 cefepime and vancomycin Afebrile-temp today is 98.2. VSS -blood pressure has ranged from 110/52 to 135/66 since admission to rehab. Blood pressure this a.m. was 130/76 following IV hydration. Heart rate is 60.... EKG yesterday showed he is completely paced. I was able to review the pacemaker check prior to surgery and he was paced 99% of the time. Maintaining appropriate oxygen saturation on RA Oral intake - FOOD poor FLUIDS oral fluid intake is poor The blood sugar record was reviewed. Blood sugar at at bedtime was 102 and fasting this morning was 82. The blood sugar at lunch is 81. Glipizide was discontinued yesterday. Will discontinue Jardiance today and Glucophage 750 mg daily and start sliding scale insulin. Discussed with nursing -slept very poorly last night. He did receive 0.5 mg of Risperdal at at bedtime. Reviewed the THERAPY notes Medication list reviewed. He is being cooperative. Has not attempted to pull the IV out. Speech is very garbled and difficult to understand. He is able to follow my simple commands. He does not appear to be in any distress. He is not tachypneic and has no labored breathing. He has been working with the therapists. Urine had 1000-10,000 colonies of Milvia albicans and less than 1000 colonies of mixed gram-positive organisms. No results on the blood culture yet. Objective Data Objective Data Vital Signs: Vital Signs Temp Pulse Resp BP Pulse Ox O2 Del Method 98.2 F 60 16 130/76 H 94 Room Air 11/24/24 06:00 11/24/24 06:00 11/24/24 06:00 11/24/24 06:00 11/24/24 06:00 11/24/24 06:00 Oxygen Delivery Method Room Air Weight: 210 lb 15.718 oz Body Mass Index (BMI) 29.4 Intake & Output: Intake and Output for Last 24 Hours 11/22/24 11/23/24 11/24/24 23:59 23:59 23:59 Intake Total 360 / 480 2365 / 2365 1495 / 1495 Output Total 400 / 750 4000 / 4500 1050 / 1050 Balance -40 / -270 -1635 / -2135 445 / 445 Lab / Micro Data 11/23/24 11:25 11/24/24 11:02 Labs: Laboratory Results - last 24 hr 11/23/24 16:34: POC Glucose 107 H 11/23/24 22:02: POC Glucose 102 11/24/24 05:52: POC Glucose 82 11/24/24 11:02: Creatinine 0.50 L, Estim Creat Clear Calc 101.43, Est GFR (MDRD) Af Amer 213, Est GFR (MDRD) Non-Af 176, Vancomycin Trough 15.2 H 11/24/24 11:28: POC Glucose 81 Micro: Microbiology 11/22/24 14:35 Urine Catheter - Mitchell Urine Culture - Final Milvia albicans Mixed Gram Positive Organisms Physical Exam Const alert Constitutional Narrative: Oriented x 1. No longer picking at things in the air. Much better eye contact today. speech is still mostly unintelligible. Able to follow simple commands. General Appearance: cooperative HEENT HEENT Narrative: No thrush Mouth: dry mucous membranes Eyes Eyes Narrative: Able to track with horizontal gaze today and no disconjugate gaze. Neck supple Neck Narrative: Denies JOHNSON Resp normal respiratory effort and clear to auscultation bilaterally Resp Narrative: Crackles in the R base have resolved. Not coughing Effort and Inspection: Negative for tachypneic or labored Cardio regular rate, regular rhythm, no rub and no gallops GI GI Narrative: distended and tympanic NT to palpation. Normal BS's. No guarding with palpation. Extremity no calf tenderness General Extremity: Negative for edema Neuro Neuro Narrative: Still with facial droop, aphasia, dysarthria, R side weakness, R side neglect. Gaze is NOT disconjugate today. Does not seem to be hallucinating today....no longer trying to pick at things in the air. Assessment & Plan Assessment/Plan (1) Debility: (2) Spinal cord tumor: (3) Status post laminectomy with spinal fusion: PLAN: 11/14/2024 at [facility] by Dr. Joel Leary (4) Ischemic cerebrovascular accident (CVA): (5) Encephalopathy acute: (6) Facial droop: (7) Right sided weakness: (8) Aphasia: (9) Dysarthria: (10) Dysphagia: (11) Kevin-neglect of right side: (12) Urine retention: (13) UTI (urinary tract infection): QUALIFIERS: Urinary tract infection type: acute cystitis Hematuria presence: with hematuria Qualified Code(s): N30.01 - Acute cystitis with hematuria PLAN: Present at admission to rehab (14) Mitchell catheter in place: PLAN: Present at admission to rehab (15) Dehydration: (16) Diabetes mellitus, type 2: (17) Hyponatremia: (18) HTN (hypertension): QUALIFIERS: Hypertension type: unspecified Qualified Code(s): I10 - Essential (primary) hypertension (19) High cholesterol: PLAN: Plan 1. Continue therapy 2. DC Jardiance and Glucophage. 3. Start a sliding insulin scale before meals and at [id number] 4. Glucagon 1 mg IV now for hypoglycemia then 0.5 mg IV TID PRN BS <70 5. Start Remeron 15 mg nightly for antidepressant, to stimulate appetite and to help with sleep. 6. I spoke with Dr. Leary and updated him on the pt and he is agreeable to starting Plavix with ASA for the next 21 days then will discontinue Plavix and continue aspirin 81 mg a day indefinitely 7. Repeat BMP, CBC and phosphorus on Wednesday 8. Continue cefepime and vancomycin - re-evaluate need for antibiotics on Wednesday after I review the lab and examine the pt. 9. Voiding trial early next week and if he fails that we will institute Flomax 10. Continue to hold Cozaar and allow permissive hypertension for the next 5 to 7 days in light of suspected recent ischemic CVA Discussed his progress with his . Charges/Coding Visit Charges Inpatient E&M: 95683 Subs Hosp L2
[2024-11-24 17:13] LABS: Bedside Glucose 71 mg/dL (74-106)
[2024-11-24] MEDS: Clopidogrel Bisulfate 75 MG Tablet PO (17:50)
[2024-11-24 18:00] VITALS: BP 142/73; PULSE 60; RESP 17; TEMP 37.1; O2SAT 97
[2024-11-24] MEDS: Glucagon 1 MG/ML Syringe IV (18:27)
[2024-11-24] MEDS: 0.9% Saline Lock 10 ML Syringe IV ×2 (18:31→22:05)
--- NOTE | 2024-11-24 18:45 | RAD_ITS ---
PROCEDURE: ABDOMEN SINGLE VIEW (PORTABLE) REASON FOR EXAM: Pain TECHNIQUE: Single view abdomen. COMPARISON: None FINDINGS: Marked distention of the stomach. Correlate for gastric outlet obstruction. Prominent loops of large bowel are also seen measuring up to 8.8 cm in greatest transaxial dimension. Distal obstruction is not excluded of the large bowel. Correlate clinically. No suspicious calcifications. The bones are unremarkable. RAD/Abdomen Single View (Portable) IMPRESSION: As above. Reading Location: [facility]
[2024-11-24] MEDS: Pantoprazole Sodium 40 MG in 0.9% Normal Saline (100mL MB+) 100 ML 330 MG IV (20:56)
[2024-11-24] MEDS: Lactated Ringers 1,000 ML 100 ML IV (21:08)
[2024-11-24 21:17] LABS: Bedside Glucose 71 mg/dL (74-106)
[2024-11-24] MEDS: LORazepam 2 MG/ML Syringe 0.5 MG IV (22:23)
--- NOTE | 2024-11-24 22:55 | RAD_ITS ---
PROCEDURE: ABDOMEN SINGLE VIEW (PORTABLE) REASON FOR EXAM: Enteric tube TECHNIQUE: Single view abdomen. COMPARISON: Reviewed FINDINGS: Bowel gas pattern is normal. No evidence of bowel obstruction. Interval placement of an enteric tube with the distal tip below the left hemidiaphragm projecting to the right of the midline with marked interval decompression of the stomach. No free air. The bones are unremarkable. RAD/Abdomen Single View (Portable) IMPRESSION: As above. Reading Location[facility]
[2024-11-25] MEDS: Sotalol Hydrochloride 80 MG Tablet 120 MG PO ×2 (00:55→20:23)
[2024-11-25] MEDS: Glucagon 1 MG/ML Syringe 0.5 MG IV (01:35)
[2024-11-25] MEDS: 0.9% Saline Lock 10 ML Syringe IV ×2 (01:45→02:06)
[2024-11-25 02:03] LABS: Bedside Glucose 71 mg/dL (74-106)
[2024-11-25 02:03] LABS: Bedside Glucose 67 mg/dL (74-106)
[2024-11-25] MEDS: HYDROmorphone 0.5 MG/0.5 ML SYRINGE IV (02:05)
[2024-11-25] MEDS: Dextrose 5%/0.9% NaCl 1,000 ML 70 ML IV (02:44)
--- NOTE | 2024-11-25 04:08 | NURSING ---
Late entry; 11-24-24 22 16 F NG inserted into l nares without difficultly. Pt tolerated well. Confirmation of placement received. NG to LIWS. Yellow drainage noted. Pt bs consistent at 71 early evening. When rechecked at 0112 bs 67. Orders to give 0.5 mg iv glucagon. BS recheck 98. Notified hospitalist. Orders to change LR to D5NS at 70 mls/hr.
[2024-11-25 04:56] LABS: Bedside Glucose 98 mg/dL (74-106)
[2024-11-25] MEDS: Cefepime HCl 2 GM in 0.9% Normal Saline (100mL MB+) 100 ML IV ×3 (05:14→23:02)
[2024-11-25] MEDS: Vancomycin HCl 1,250 MG in 0.9% Normal Saline (250mL Bag) 250 ML 167 MG IV ×3 (05:54→20:09)
[2024-11-25 06:00] VITALS: BP 152/58; PULSE 61; RESP 18; TEMP 37.3; O2SAT 94
[2024-11-25] MEDS: Contrast Allergy Safety Check IV (06:10)
[2024-11-25] MEDS: Enoxaparin 40 MG/0.4 ML Syringe SC (06:24)
[2024-11-25 07:32] LABS: Bedside Glucose 80 mg/dL (74-106)
[2024-11-25] MEDS: LORazepam 2 MG/ML Syringe 0.5 MG IV (07:55)
--- NOTE | 2024-11-25 08:00 | CT_ITS ---
PROCEDURE: ABDOMEN/PELVIS WITH CONTRAST REASON FOR EXAM: Pain TECHNIQUE: Abdomen and pelvis CT with intravenous contrast. IV CONTRAST: COMPARISON: None. FINDINGS: Lung bases: Bilateral rogtx-lihyigk-rpvr-left pleural effusions with adjacent airspace disease. Liver: Unremarkable. Gallbladder: Unremarkable. Spleen: Unremarkable. Pancreas: Unremarkable. Adrenals: Unremarkable. Kidneys: Unremarkable. Bladder: Unremarkable. Reproductive Organs: Unremarkable. Bowel: Enteric tube within the stomach. No bowel obstruction. Scattered diverticulosis centered at the sigmoid colon. Appendix: Normal. Lymph nodes: No suspicious lymph node enlargement. Vasculature: Major vascular structures are unremarkable. Peritoneum / Retroperitoneum: No ascites. No free air. Bones: Multilevel degenerative changes. CT/Abdomen/Pelvis WITH Contrast IMPRESSION: Bilateral gwznd-dpbpwve-epuw-left pleural effusions with adjacent airspace dise ase. One or more dose reduction techniques were used (e.g., Automated exposure contr ol, adjustment of the mA and/or kV according to patient size, use of iterative reconstruction technique). Reading Location: [place]
--- NOTE | 2024-11-25 08:14 | NURSING ---
Spouse, Amanda, calls to acknowledge vm received from Dr. Isabelle fernandes hs. This nurse confirmed the information repeated per spouse. Update given overnight per her request. She also would like her contact information changed to her cell phone. Number confirmed at [phone]. She expresses appreciation for update. Call placed to ED registration to have number changed.
--- NOTE | 2024-11-25 08:30 | EX.PCM.CON.S ---
Assessment & Plan Assessment/Plan (1) Ischemic cerebrovascular accident (CVA): PLAN: Patient is here after stroke and laminectomy. The patient had a CT scan this morning and there was no distended small bowel or colon. I believe that NG can be removed and the patient can try clear liquids. Advance as tolerated. Mukesh Mcfarlane MD Pager: [facility] [address] [place] [address], [address] [place] [address] Office: HPI Consult Data Date of Consult: 11/25/24 HPI Narrative HPI Narrative: CATRACHO OSPINA, is a 69 M who I was consulted on in rehab for small bowel obstruction. Patient was very distended yesterday. He had an NG placed overnight which did not drain much fluid. He is not complaining of any abdominal pain. He does have surgical history of colectomy. [facility] Medical History (Updated 11/24/24 @ 18:[address] Donna Walton DO) Diabetes mellitus, type 2 Spinal cord tumor Myocardial infarction Afib HTN (hypertension) Pacemaker Home Medications ?Medication ?Instructions ?Recorded ?Last Taken ?Type aspirin 81 mg tablet,delayed 81 mg PO DAILY heart health 12/31/22 11/22/24 History release (Adult Aspirin Regimen) hydrochlorothiazide 25 mg tablet 12.5 mg PO DAILY HTN 12/31/22 Unknown History losartan 100 mg tablet 100 mg PO DAILY HTN 12/31/22 11/22/24 History sotalol 120 mg tablet 120 mg PO QHS heart 12/31/22 11/21/24 History clopidogrel 75 mg tablet 75 mg PO DAILY afib 06/03/23 Unknown History Held on 11/22/24. Instructions: Ordered glipizide 10 mg tablet, extended 10 mg PO BID DM #180 tabs 06/19/24 11/22/24 Rx release 24 hr empagliflozin 25 mg tablet 25 mg PO DAILY DM #90 tabs 07/18/24 Unknown Rx (Jardiance) tirzepatide 5 mg/0.5 mL 5 mg (0.5 mL) subcut QWEEK DM #2 mL 10/23/24 Unknown Rx subcutaneous pen injector (Genarounbriannaro) Held on 11/22/24. Instructions: Ordered acetaminophen 500 mg tablet 1,000 mg PO Q8 PRN pain 11/22/24 Unknown History cyclobenzaprine 10 mg tablet 10 mg PO TID muscle spasm 11/22/24 11/22/24 History enoxaparin 40 mg/0.4 mL 40 mg subcut DAILY DVT Prophylaxis 11/22/24 11/22/24 History subcutaneous syringe (Lovenox) famotidine 20 mg tablet (Pepcid) 20 mg PO DAILY reflux 11/22/24 11/22/24 History fluconazole 200 mg tablet 200 mg PO DAILY ATB 11/22/24 11/22/24 History metformin 750 mg tablet,extended 750 mg PO DAILY DM 11/22/24 Unknown History release 24 hr multivitamin (Daily Multi-Vitamin 1 tab PO DAILY supplement 11/22/24 Unknown History tablet) oxycodone 5 mg tablet 5 mg PO Q6H PRN pain 11/22/24 Unknown History rosuvastatin 5 mg tablet 5 mg PO QHS cholesterol 11/22/24 11/21/24 History sulfamethoxazole 800 1 tab PO Q12H ATB 11/22/24 11/22/24 History mg-trimethoprim 160 mg tablet Allergy/AdvReac Type Severity Reaction Status Date / Time Penicillins Allergy Rash Verified 06/07/24 08:11 lisinopril AdvReac Cough Verified 06/07/24 08:11 Family History unable to obtain Surgical History (Updated 11/23/24 @ 11:[address] Donna Walton, DO) Status post laminectomy with spinal fusion History of total right knee replacement Stented coronary artery Social History Smoking Status: Never smoker alcohol intake: current alcohol intake frequency: holidays/special occasions only Alcohol type: beer substance use type: does not use ROS Constitutional Constitutional: Denies anorexia, chills or fatigue Eyes Eyes: Denies blurry vision Cardiovascular Cardiovascular: Denies chest pain Respiratory/Chest Respiratory/Chest: Denies cough or dyspnea Gastrointestinal Gastrointestinal: Denies abdominal pain, nausea or vomiting Physical Exam Const alert and no apparent distress HEENT normocephalic Eyes PERRL Resp normal respiratory effort Cardio Rate: regular rate Rhythm: regular rhythm Lab / Micro Data 11/23/24 11:25 11/24/24 11:02 Labs: Laboratory Results - last 24 hr 11/24/24 11:02: Creatinine 0.50 L, Estim Creat Clear Calc 101.43, Est GFR (MDRD) Af Amer 213, Est GFR (MDRD) Non-Af 176, Vancomycin Trough 15.2 H 11/24/24 11:28: POC Glucose 81 11/24/24 16:25: POC Glucose 71 L 11/24/24 20:58: POC Glucose 71 L 11/24/24 23:01: POC Glucose 71 L 11/25/24 01:12: POC Glucose 67 L 11/25/24 01:50: POC Glucose 98 11/25/24 06:23: POC Glucose 80 Micro: Microbiology 11/22/24 14:35 Urine Catheter - Mitchell Urine Culture - Final Milvia albicans Mixed Gram Positive Organisms Imaging Radiology Impression [facility] X-Ray 11/24/24 18:45 IMPRESSION: As above. Reading Location: [facility] X-Ray 11/24/24 22:55
--- NOTE | 2024-11-25 09:21 | PN_ITS ---
Subjective Subjective Afebrile off Tylenol. VSS -blood pressure over the past 24 hours has ranged from 130/76 to 152/58. Heart rate is 60. Maintaining appropriate oxygen saturation on RA-94 to 97%. Oral intake - FOOD Made NPO yesterday. Started on clears today FLUIDS fluid balance yesterday was positive for 90 and overnight he is +1351. The blood sugar record was reviewed. Had hypoglycemia yesterday received 2 doses of glucagon. All oral medications were held since yesterday a.m. and he is on sliding insulin scale. Discussed with nursing - He needed a sitter last night but, the NG remained in all night and the stomach was decompressed. NG was removed by surgery after CT today. Very little OP from the NG last night. Reviewed the THERAPY notes Medication list reviewed. He had 1 as needed dose of lorazepam last night and had another dose this morning for the CT scan. 1 dose of Dilaudid 0.5 mg was given at approximately [address] scan today showed no bowel obstruction. There are small BL pleural effusions, R>L. He has diverticulosis but no evidence of diverticulitis. No growth on the blood culture to date, final report at the conclusion of 5 days. Very sleepy today. Has not slept for the past 2 nights while on rehab. He keeps nodding off when I am trying to talk with him. Objective Data Objective Data Vital Signs: Vital Signs Temp Pulse Resp BP Pulse Ox O2 Del Method 99.1 F 61 18 152/58 H 94 Room Air 11/25/24 06:00 11/25/24 06:00 11/25/24 06:00 11/25/24 06:00 11/25/24 06:00 11/25/24 06:00 Oxygen Delivery Method Room Air Weight: 210 lb 15.718 oz Body Mass Index (BMI) 29.4 Intake & Output: Intake and Output for Last 24 Hours 11/23/24 11/24/24 11/25/24 23:59 23:59 23:59 Intake Total 2365 / 2365 3440 / 3440 1901.33 / 1901.33 Output Total 4000 / 4500 2950 / 2950 550 / 550 Balance -1635 / -2135 490 / 490 1351.33 / 1351.33 Lab / Micro Data 11/25/24 09:41 11/25/24 09:41 Labs: Laboratory Results - last 24 hr 11/24/24 11:02: Creatinine 0.50 L, Estim Creat Clear Calc 101.43, Est GFR (MDRD) Af Amer 213, Est GFR (MDRD) Non-Af 176, Vancomycin Trough 15.2 H 11/24/24 11:28: POC Glucose 81 11/24/24 16:25: POC Glucose 71 L 11/24/24 20:58: POC Glucose 71 L 11/24/24 23:01: POC Glucose 71 L 11/25/24 01:12: POC Glucose 67 L 11/25/24 01:50: POC Glucose 98 11/25/24 06:23: POC Glucose 80 Micro: Microbiology 11/22/24 14:35 Urine Catheter - Mitchell Urine Culture - Final Milvia albicans Mixed Gram Positive Organisms Radiography Diagnostic Testing: Radiology Impression KUB X-Ray 11/24/24 18:45 IMPRESSION: As above. Reading Location[facility] [employer] [facility] 11/24/24 22:55 IMPRESSION: As above. Reading Location: [facility] Abdomen/Pelvis CT 11/25/24 08:00 IMPRESSION: Bilateral mjpfs-cgqgjow-smlb-left pleural effusions with adjacent airspace disease. One or more dose reduction techniques were used (e.g., Automated exposure control, adjustment of the mA and/or kV according to patient size, use of iterative reconstruction technique). Reading [facility] Physical Exam Const Constitutional Narrative: Very sleepy, keeps nodding off to sleep when I am talking to him. Able to follow my commands when I can keep him awake. Denies pain. HEENT Mouth: dry mucous membranes Resp clear to auscultation bilaterally Resp Narrative: Diminished breath sounds-poor inspiratory effort Auscultation: diminished lung sounds Cardio regular rate, regular rhythm and no gallops GI GI Narrative: The abdomen is soft today and not tympanic. He has no guarding with palpation. Bowel sounds are present. Extremity General Extremity: Negative for edema Neuro Neuro Narrative: No disconjugate gaze. Neuroexam is otherwise unchanged. Assessment & Plan Assessment/Plan (1) Debility: (2) Spinal cord tumor: (3) Status post laminectomy with spinal fusion: (4) Ischemic cerebrovascular accident (CVA): (5) Encephalopathy acute: (6) Facial droop: (7) Right sided weakness: (8) Aphasia: (9) Dysarthria: (10) Dysphagia: (11) Kevin-neglect of right side: (12) Urine retention: (13) UTI (urinary tract infection): QUALIFIERS: Urinary tract infection type: acute cystitis H ematuria presence: with hematuria Qualified Code(s): N30.01 - Acute cystitis with hematuria (14) Mitchell catheter in place: (15) Dehydration: (16) Diabetes mellitus, type 2: (17) Hyponatremia: (18) HTN (hypertension): QUALIFIERS: Hypertension type: unspecified Qualified Code(s): I10 - Essential (primary) hypertension (19) High cholesterol: (20) Ileus: PLAN: Plan 1. Continue therapy 2. NG tube was discontinued today when CT showed no sign of bowel obstruction. 3. Continue to hold oral medications for another 24 hours continue rectal aspirin 300 mg daily. Give mirtazapine and sotalol at bedtime 4. Discontinue D5 normal saline and start D10W at 20 cc/h. 5. CBC with differential, BMP and BNP today 6. If he does well for the next 24 hours we will likely start Plavix Wednesday or Wednesday in addition to the aspirin. 7. Continue Protonix IV for GI prophylaxis 8. If distension recurs consider Reglan. 9. Start Mirtazapine at HS 10 If he does not start to eat and drink will need to consider a duotube or a PEG. Need to get him sleeping at night and swake during the day. Start Melatonin. Charges/Coding Visit Charges Inpatient E&M: 06978 Subs Hosp L2
[2024-11-25] MEDS: Pantoprazole Sodium 40 MG in 0.9% Normal Saline (100mL MB+) 100 ML 330 MG IV (09:48)
[2024-11-25 09:52] LABS: Absolute Lymphocyte Count 1.32 X10^3/uL (0.83-4.51); Absolute Neutrophil Count 6.1 X10^3/uL (2.0-7.7); Basophil# 0.03 X10^3/uL; Basophil% 0.4 % (0-1); Eosinophil# 0.27 X10^3/uL; Eosinophils% 3.2 % (0-5); Hemoglobin 10.7 g/dL (13.0-16.5); Lymphocyte # 1.32 X10^3/ul (0.83-4.51); Lymphocyte % 15.5 % (19-41); Mean Corp Hgb Conc 33.4 g/dL (32-36); Mean Corpuscular Hgb 29.4 pg (27.0-32.0); Mean Corpuscular Volume 87.9 fL (80-94); Mean Platelet Vol. 8.1 fl (6.2-12.0); Monocyte% 9.4 % (0-10); NRBC Flagged by Analyzer 0 % (0-5); Neutrophil # 6.05 X10^3/uL (2.7-7.7); Platelet Count 249 K/mm3 (150-450); RBC Distribution Width CV 12.9 % (11.6-14.6); RBC Distribution Width SD 41.2 fl (35.1-43.9); Red Blood Count 3.64 M/mm3 (4.6-6.2); White Blood Count 8.5 K/mm3 (4.4-11.0)
[2024-11-25] MEDS: Aspirin 300 MG Suppository RC (10:23)
[2024-11-25 10:26] LABS: BNP,B-Type NATRIURETIC PEPTIDE 275.4 pg/mL (0-100)
[2024-11-25 10:27] LABS: Anion Gap 9 (5-15); BUN 13 mg/dL (7-18); BUN/Creat Ratio 23.7 RATIO (10-20); Calcium,Total 8.2 mg/dL (8.5-10.1); Chloride 103 mmol/L (98-107); Creatinine, Serum 0.55 mg/dL (0.70-1.30); EST Glomerular Filtration Rate 157 mL/min (>60); Est Glom Filt Rate - Afr Amer 190 mL/min (>60); Estimated Creatinine Clearance 101.43 ml/min; Glucose 85 mg/dL (74-106); Potassium 3.8 mmol/L (3.5-5.1); Sodium Level 133 mmol/L (136-145)
[2024-11-25] MEDS: Senna/Docusate Sodium 1 Tablet 2 TABLET PO ×2 (11:32→20:24)
[2024-11-25] MEDS: Dextrose 10%-Water 250 ML 20 ML IV ×2 (11:35→23:57)
[2024-11-25 11:57] LABS: Bedside Glucose 82 mg/dL (74-106)
[2024-11-25] MEDS: Bisacodyl 10 MG Suppository RC (14:17)
[2024-11-25 16:59] VITALS: BP 136/67; PULSE 90; RESP 16; TEMP 36.2; O2SAT 96
[2024-11-25 18:27] LABS: Bedside Glucose 115 mg/dL (74-106)
[2024-11-25 19:30] VITALS: O2SAT 93
[2024-11-25] MEDS: MELATONIN 3 MG TABLET PO (20:24)
[2024-11-25] MEDS: Mirtazapine 15 MG Tablet PO (20:24)
[2024-11-25] MEDS: Polyethylene Glycol 3350 17 GM PACKET PO (20:25)
[2024-11-25 20:31] VITALS: BP 140/70; PULSE 77
[2024-11-25 23:51] LABS: Bedside Glucose 115 mg/dL (74-106)
[2024-11-26] MEDS: 0.9% Saline Lock 10 ML Syringe IV ×5 (04:07→23:38)
[2024-11-26] MEDS: Vancomycin HCl 1,250 MG in 0.9% Normal Saline (250mL Bag) 250 ML 167 MG IV (04:16)
[2024-11-26 05:50] VITALS: BP 141/71; PULSE 60; RESP 20; TEMP 36.9; O2SAT 96
[2024-11-26] MEDS: Enoxaparin 40 MG/0.4 ML Syringe SC (05:55)
[2024-11-26] MEDS: Cefepime HCl 2 GM in 0.9% Normal Saline (100mL MB+) 100 ML IV ×3 (06:29→22:28)
[2024-11-26 07:19] LABS: Bedside Glucose 121 mg/dL (74-106)
--- NOTE | 2024-11-26 08:56 | PN.SURG_ITS ---
Subjective Subjective Patient reports tolerating clear liquids with no abdominal pain Objective Data Objective Data Vital Signs: Vital Signs Temp Pulse Resp BP Pulse Ox O2 Del Method 98.5 F 60 20 H 141/71 H 96 Room Air 11/26/24 05:50 11/26/24 05:50 11/26/24 05:50 11/26/24 05:50 11/26/24 05:50 11/26/24 05:50 Oxygen Delivery Method Room Air Weight: 210 lb 15.718 oz Body Mass Index (BMI) 29.4 Intake & Output: Intake and Output for Last 24 Hours 11/24/24 11/25/24 11/26/24 23:59 23:59 23:59 Intake Total 3440 / 3440 4360.83 / 4360.83 575 / 575 Output Total 2950 / 2950 2850 / 3200 1100 / 1100 Balance 490 / 490 1510.83 / 1160.83 -525 / -525 Lab / Micro Data 11/25/24 09:41 11/25/24 09:41 Labs: Laboratory Results - last 24 hr 11/25/24 09:41: WBC 8.5, RBC 3.64 L, Hgb 10.7 L, Hct 32.0 L, MCV 87.9, MCH 29.4, MCHC 33.4, RDW Std Deviation 41.2, RDW Coeff of Magdalena 12.9, Plt Count 249, MPV 8.1, Immature Gran % (Auto) 0.500, Neut % (Auto) 71.0 H, Lymph % (Auto) 15.5 L, [place] % (Auto) 9.4, Eos % (Auto) 3.2, Baso % (Auto) 0.4, Absolute Neuts (auto) 6.1, Absolute Lymphs (auto) 1.32, Nucleated RBC % 0, Sodium 133 L, Potassium 3.8, Chloride 103, Carbon Dioxide 21.0, Anion Gap 9, BUN 13, Creatinine 0.55 L, Estim Creat Clear Calc 101.43, Est GFR (MDRD) Af Amer 190, Est GFR (MDRD) Non-Af 157, BUN/Creatinine Ratio 23.7 H, Glucose 85, Calcium 8.2 L, B-Natriuretic Peptide 275.4 H 11/25/24 11:34: POC Glucose 82 11/25/24 18:06: POC Glucose 115 H 11/25/24 22:51: POC Glucose 115 H 11/26/24 05:52: POC Glucose 121 H Micro: Microbiology 11/25/24 16:50 Stool Stool Occult Blood (DEEDEE) - Final 11/23/24 11:25 Blood Culture (Wb) - Anticubital Right Blood Culture - Preliminary No growth in 48 hours. 11/22/24 14:35 Urine Catheter - Mitchell Urine Culture - Final Milvia albicans Mixed Gram Positive Organisms Radiography Diagnostic Testing: Radiology Impression Abdomen/Pelvis CT 11/25/24 08:00 IMPRESSION: Bilateral rdqwu-potxmpz-mtzq-left pleural effusions with adjacent airspace disease. One or more dose reduction techniques were used (e.g., Automated exposure control, adjustment of the mA and/or kV according to patient size, use of iterative reconstruction technique). Reading Location: [facility] Physical Exam Const no apparent distress Resp normal respiratory effort GI soft to palpation and non-tender Assessment & Plan Assessment/Plan (1) Ileus: PLAN: Patient has CT scan initially which did not show any dilated bowel. He was started on clears which she tolerated. I will advance him to a regular diet today. As long as he tolerates this I will sign off and follow-up as needed. Mukesh Mcfarlane MD Pager: [facility] [address] [place] [address], [address] [place] [phone] Office:
[2024-11-26] MEDS: Pantoprazole Sodium 40 MG in 0.9% Normal Saline (100mL MB+) 100 ML 330 MG IV (09:41)
[2024-11-26 09:49] VITALS: BP 139/73; PULSE 60
[2024-11-26] MEDS: Senna/Docusate Sodium 1 Tablet 2 TABLET PO (10:04)
[2024-11-26] MEDS: Aspirin 300 MG Suppository RC (10:04)
[2024-11-26] MEDS: Polyethylene Glycol 3350 17 GM PACKET PO (10:06)
[2024-11-26 11:50] LABS: Vancomycin, Trough Level 23.1 ug/mL (5.0-15.0)
--- NOTE | 2024-11-26 11:55 | PCM.RX.CS ---
Consult Antibiotic Management Pharmacy has been consulted to manage selected antibiotic: Vancomycin Type of Intervention Type of Consult: Follow-up Suspected Infection Suspected Infection: Other (EMPIRIC) Prior Doses of Antibiotics Prior Doses of Antibiotics Received/Current Regimen: Vancomycin 1250 mg Q8H last dose given 11/26 @ 4577 Labs Labs: Sodium 133 mmol/L (136-145) L 11/25/24 09:41 Potassium 3.8 mmol/L (3.5-5.1) 11/25/24 09:41 Chloride 103 mmol/L (98-107) 11/25/24 09:41 Carbon Dioxide 21.0 mmol/L (21.0-32.0) 11/25/24 09:41 Anion Gap 9 (5-15) 11/25/24 09:41 BUN 13 mg/dL (7-18) 11/25/24 09:41 Creatinine 0.55 mg/dL (0.70-1.30) L 11/25/24 09:41 Est GFR (MDRD) Af Amer 190 mL/min (>60) 11/25/24 09:41 Est GFR (MDRD) Non-Af 157 mL/min (>60) 11/25/24 09:41 BUN/Creatinine Ratio 23.7 RATIO (10-20) H 11/25/24 09:41 Glucose 85 mg/dL (74-106) 11/25/24 09:41 Vancomycin Trough 23.1 ug/mL (5.0-15.0) H 11/26/24 11:15 Microbiology Microbiology: Microbiology 11/25/24 16:50 Stool Stool Occult Blood (DEEDEE) - Final 11/23/24 11:25 Blood Culture (Wb) - Anticubital Right Blood Culture - Preliminary No growth in 48 hours. 11/22/24 14:35 Urine Catheter - Mitchell Urine Culture - Final Milvia albicans Mixed Gram Positive Organisms Dosing Weight Weight used for dosin kg Estimated Creatinine Clearance Estimated Creatinine Clearance: ~ 101 Pharmacy Plan for Drug Dosing Pharmacy Plan for Drug Dosing: Vancomycin trough = 23.1, hold vanco, get random in 12 hours. Pharmacy Service will continue to monitor and adjust dosing as required. Follow-Up Labs Follow-Up Labs: Trough: Vancomycin Date/Time Labs Ordered Labs to be done on [date and time ordered]: 11/26/24 @ 4963
[2024-11-26 12:00] LABS: Bedside Glucose 116 mg/dL (74-106)
[2024-11-26] MEDS: Dextrose 10%-Water 250 ML 20 ML IV (13:23)
[2024-11-26 17:10] LABS: Bedside Glucose 135 mg/dL (74-106)
[2024-11-26 18:00] VITALS: BP 133/70; PULSE 57; RESP 18; TEMP 36.9; O2SAT 94
[2024-11-26] MEDS: Mirtazapine 15 MG Tablet PO (22:19)
[2024-11-26] MEDS: Sotalol Hydrochloride 80 MG Tablet 120 MG PO (22:25)
[2024-11-26] MEDS: MELATONIN 3 MG TABLET PO (22:26)
[2024-11-26] MEDS: Insulin Lispro 100 UNIT/ML INSULN.PEN SC (23:06)
[2024-11-26 23:27] LABS: Bedside Glucose 177 mg/dL (74-106)
[2024-11-27 00:28] LABS: Vancomycin, Random Level 11.7 ug/mL (0.0-15.0)
--- NOTE | 2024-11-27 00:43 | PCM.RX.CS ---
Consult Antibiotic Management Pharmacy has been consulted to manage selected antibiotic: Vancomycin Type of Intervention Type of Consult: Follow-up Labs Labs: Sodium 133 mmol/L (136-145) L 11/25/24 09:41 Potassium 3.8 mmol/L (3.5-5.1) 11/25/24 09:41 Chloride 103 mmol/L (98-107) 11/25/24 09:41 Carbon Dioxide 21.0 mmol/L (21.0-32.0) 11/25/24 09:41 Anion Gap 9 (5-15) 11/25/24 09:41 BUN 13 mg/dL (7-18) 11/25/24 09:41 Creatinine 0.55 mg/dL (0.70-1.30) L 11/25/24 09:41 Est GFR (MDRD) Af Amer 190 mL/min (>60) 11/25/24 09:41 Est GFR (MDRD) Non-Af 157 mL/min (>60) 11/25/24 09:41 BUN/Creatinine Ratio 23.7 RATIO (10-20) H 11/25/24 09:41 Glucose 85 mg/dL (74-106) 11/25/24 09:41 Vancomycin Trough 23.1 ug/mL (5.0-15.0) H 11/26/24 11:15 Random Vancomycin 11.7 ug/mL (0.0-15.0) 11/26/24 23:54 Microbiology Microbiology: Microbiology 11/25/24 16:50 Stool Stool Occult Blood (DEEDEE) - Final 11/23/24 11:25 Blood Culture (Wb) - Anticubital Right Blood Culture - Preliminary No growth in 48 hours. 11/22/24 14:35 Urine Catheter - Mitchell Urine Culture - Final Milvia albicans Mixed Gram Positive Organisms Dosing Weight Weight used for dosin.7 kg Estimated Creatinine Clearance Estimated Creatinine Clearance: 101 Goal Trough Goal Trough: 15-20 mcg/mL Pharmacy Plan for Drug Dosing Pharmacy Plan for Drug Dosing: Vancomycin random level drawn 11/26/24 @8090 was back below 20, at 11.7. Per dosing calculator, a new dose of 1000mg q8h should give an estimated new trough level of 17.3. This will be initiated now, and a trough will be drawn prior to the fourth dose of the new regimen. Pharmacy Service will continue to monitor and adjust dosing as required. Follow-Up Labs Follow-Up Labs: Trough: Vancomycin Date/Time Labs Ordered Labs to be done on [date and time ordered]: 11/28/24 @0030
[2024-11-27] MEDS: Vancomycin IV 1,000 MG/200 ML BAG 200 MG IV ×2 (00:54→08:18)
[2024-11-27] MEDS: 0.9% Saline Lock 10 ML Syringe IV ×6 (00:54→14:28)
[2024-11-27] MEDS: Dextrose 10%-Water 250 ML 20 ML IV (02:31)
[2024-11-27 06:00] VITALS: BP 125/65; PULSE 60; RESP 15; TEMP 36.7; O2SAT 95
[2024-11-27] MEDS: Cefepime HCl 2 GM in 0.9% Normal Saline (100mL MB+) 100 ML IV ×2 (06:34→14:27)
[2024-11-27] MEDS: Enoxaparin 40 MG/0.4 ML Syringe SC (06:40)
[2024-11-27 07:03] LABS: Bedside Glucose 158 mg/dL (74-106)
[2024-11-27] MEDS: Senna/Docusate Sodium 1 Tablet 2 TABLET PO (08:15)
[2024-11-27] MEDS: Insulin Lispro 100 UNIT/ML INSULN.PEN SC ×3 (08:23→17:03)
[2024-11-27] MEDS: Polyethylene Glycol 3350 17 GM PACKET PO (08:26)
--- NOTE | 2024-11-27 08:34 | PCM.PROGNOTE ---
Subjective Subjective Day #5 of cefepime and vancomycin Deondre was seen on team rounds today. His was present in the room for rounds. All questions were answered to their satisfaction. Afebrile VSS -heart rate over the past 48 hours has ranged from 57-90. Blood pressure has ranged from 125/65 to 141/71. Maintaining appropriate oxygen saturation on RA-94 to 95% Oral intake - FOOD ate 75 to 100% of his meals yesterday. FLUIDS much improved. He took 1260 p.o. yesterday. Had 2 bowel movements yesterday. The blood sugar record was reviewed. The blood sugars yesterday ranged from 116-177. He received a total of 1 unit of lispro and that was at at bedtime last night. Discussed with nursing - no problems that need addressed Reviewed the THERAPY notes Medication list reviewed. Deondre denies JOHNSON, lightheadedness, CP, SOB, palpitations, cough, N/V/abd pain, suprapubic pain and calf tenderness. All lab from today was personally reviewed. The white blood cell count is down to 5.2 from 12.7 at admission. Hemoglobin is 11.3 which is stable. Platelets are within normal limits. Sodium is up to 136 and potassium is low at 3.4. The BUN is 11 with a creatinine of 0.55 which is stable. TSH was 2.1 in May 2024. Objective Data Objective Data Vital Signs: Vital Signs Temp Pulse Resp BP Pulse Ox O2 Del Method 98.1 F 60 15 125/65 H 95 Room Air 11/27/24 06:00 11/27/24 06:00 11/27/24 06:00 11/27/24 06:00 11/27/24 06:00 11/27/24 06:00 Oxygen Delivery Method Room Air Weight: 210 lb 15.718 oz Body Mass Index (BMI) 29.4 Intake & Output: Intake and Output for Last 24 Hours 11/25/24 11/26/24 11/27/24 23:59 23:59 23:59 Intake Total 4360.83 / 4360.83 2296 / 2296 699 / 699 Output Total 2850 / 3200 3550 / 3550 500 / 500 Balance 1510.83 / 1160.83 -1254 / -1254 199 / 199 Lab / Micro Data 11/27/24 09:37 11/27/24 09:37 Labs: Laboratory Results - last 24 hr 11/26/24 11:15: Vancomycin Trough 23.1 H 11/26/24 11:34: POC Glucose 116 H 11/26/24 16:53: POC Glucose 135 H 11/26/24 22:25: POC Glucose 177 H 11/26/24 23:54: Random Vancomycin 11.7 11/27/24 06:44: POC Glucose 158 H Micro: Microbiology 11/25/24 16:50 Stool Stool Occult Blood (DEEDEE) - Final 11/23/24 11:25 Blood Culture (Wb) - Anticubital Right Blood Culture - Preliminary No growth in 48 hours. 11/22/24 14:35 Urine Catheter - Mitchell Urine Culture - Final Milvia albicans Mixed Gram Positive Organisms Physical Exam Const alert Constitutional Narrative: speech is still garbled. Able to follow simple commands. Pleasant and cooperative. Much more alert today than he has been. Slept well last night. Appetite is still poor. HEENT Mouth: dry mucous membranes Eyes PERRL and EOMs intact bilaterally Eyes Narrative: No disconjugate gaze Resp Resp Narrative: Very diminished in the bases. No wheezes. No crackles appreciated. No conversational dyspnea. Effort and Inspection: Negative for tachypneic Cardio regular rate, regular rhythm and no gallops Cardio Narrative: No ectopy GI GI Narrative: The abdomen is soft and nondistended. Bowel sounds are present in all quadrants. There is no guarding with palpation. No masses appreciated. Extremity no calf tenderness General Extremity: Negative for edema Skin Skin Narrative: He has a red maculopapular rash on the back and the flanks and on the proximal thighs. Denies pruritus. No significant change in the Stage 2 on the R buttock. Neuro Neuro Narrative: Disconjugate gaze had resolved. He is able to track horizontally with no difficulty now. No nystagmus. No visual field cuts. Unable to raise the right eyebrow. Persistent R facial droop. Persistent severe dysarthria and some problem with word finding. Oriented to person and to place. Can tell me today that he is 69 YOA. Could not tell me the year or the month. when I asked him the month he told me 3. Able to hold the RUE up for a count of 10 with no drift. Sensation is coming back. Could lift the RLE a little off the bed but, it dropped to the bed in less than 5 sec. 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 Coordination / Balance: [id number]-nw-wdon test normal Psych cooperative Psych Narrative: poor appetite. Sleeping better at night. Motivated to do therapy. Calm, no agitation. Cooperative. Trying to joke around with the staff but, he is very difficult to understand. No longer picking at things in the air. Assessment & Plan Assessment/Plan (1) Debility: (2) Spinal cord tumor: (3) Status post laminectomy with spinal fusion: (4) Ischemic cerebrovascular accident (CVA): (5) Encephalopathy acute: (6) Facial droop: (7) Right sided weakness: (8) Aphasia: (9) Dysarthria: (10) Dysphagia: (11) Kevin-neglect of right side: (12) Urine retention: (13) UTI (urinary tract infection): QUALIFIERS: Urinary tract infection type: acute cystitis Hematuria presence: with hematuria Qualified Code(s): N30.01 - Acute cystitis with hematuria (14) Mitchell catheter in place: (15) Dehydration: (16) Diabetes mellitus, type 2: (17) Hyponatremia: (18) HTN (hypertension): QUALIFIERS: Hypertension type: unspecified Qualified Code(s): I10 - Essential (primary) hypertension (19) High cholesterol: (20) Ileus: PLAN: Plan 1. Continue therapy 2. Discontinue rectal aspirin and start 81 mg of aspirin p.o. daily 3. Start Plavix 75 mg p.o. daily 4. Start Glucophage XR 500 mg once daily with supper. Continue sliding scale insulin. Discontinue D10W at 20 cc/h 5. Restart atorvastatin. 6. Discontinue losartan -still allowing permissive hypertension and systolic is only sometimes mildly over goal. 7. Continue Remeron 15 mg at at bedtime and melatonin. 8. Supplement potassium 9. Arthritis compounded cream to the bilateral trapezius ridges twice daily for muscle spasm/pain. Resume Tylenol 1 g p.o. every 8 hours as needed pain. Has cyclobenzaprine 5 mg 3 times daily as needed. Charges/Coding Visit Charges Inpatient E&M: 91653 Subs Hosp L2
[2024-11-27 08:55] VITALS: BMI 28.8
[2024-11-27 09:53] LABS: Absolute Neutrophil Count 3.3 X10^3/uL (2.0-7.7); Basophil# 0.02 X10^3/uL; Basophil% 0.4 % (0-1); Eosinophil# 0.32 X10^3/uL; Eosinophils% 6.1 % (0-5); Hematocrit 33.7 % (40-54); Hemoglobin 11.3 g/dL (13.0-16.5); Lymphocyte % 17.2 % (19-41); Mean Corp Hgb Conc 33.5 g/dL (32-36); Mean Corpuscular Hgb 29.4 pg (27.0-32.0); Mean Corpuscular Volume 87.8 fL (80-94); Mean Platelet Vol. 8.4 fl (6.2-12.0); Monocyte# 0.62 X10^3/uL; Monocyte% 11.9 % (0-10); NRBC Flagged by Analyzer 0 % (0-5); Neutrophil # 3.34 X10^3/uL (2.7-7.7); Platelet Count 260 K/mm3 (150-450); RBC Distribution Width CV 12.7 % (11.6-14.6); RBC Distribution Width SD 40.6 fl (35.1-43.9); Red Blood Count 3.84 M/mm3 (4.6-6.2); White Blood Count 5.2 K/mm3 (4.4-11.0)
[2024-11-27] MEDS: Aspirin 81 MG TAB.CHEW PO (10:12)
[2024-11-27] MEDS: Clopidogrel Bisulfate 75 MG Tablet PO (10:12)
[2024-11-27] MEDS: Pantoprazole Sodium 40 MG Tablet PO (10:29)
[2024-11-27 10:52] LABS: Anion Gap 8 (5-15); BUN 11 mg/dL (7-18); Calcium,Total 8.6 mg/dL (8.5-10.1); Chloride 103 mmol/L (98-107); Creatinine, Serum 0.55 mg/dL (0.70-1.30); EST Glomerular Filtration Rate 156 mL/min (>60); Est Glom Filt Rate - Afr Amer 189 mL/min (>60); Estimated Creatinine Clearance 100.41 ml/min; Glucose 181 mg/dL (74-106); Potassium 3.4 mmol/L (3.5-5.1); Sodium Level 136 mmol/L (136-145)
[2024-11-27 12:43] LABS: Bedside Glucose 172 mg/dL (74-106)
--- NOTE | 2024-11-27 13:09 | CASEMGMT ---
Social Work IDT met with patient and for Team meeting. Discussed patient's progress in PT/OT/ST/SN. Educated to Medicare approval of 23 days with DC 12/15. Therapy noted pt's motivation. Currently on troy lift. Pt will likely need a SNF at DC. Will ReTeam weekly. SW will continue to follow for DC planning. Samantha Diaz HUMAN RELATIONS PROFESSOR HOSPITALIST NOCTURNIST PHYSICIAN
[2024-11-27] MEDS: metFORMIN (XR) 500 MG Tablet PO (16:59)
[2024-11-27 17:57] LABS: Bedside Glucose 165 mg/dL (74-106)
[2024-11-27 18:00] VITALS: BP 129/70; PULSE 59; RESP 18; TEMP 36.3; O2SAT 93
[2024-11-27] MEDS: Arthritis Pain Compound 60 CLICK TUBE TOPICAL (21:24)
[2024-11-27] MEDS: Mirtazapine 15 MG Tablet PO (21:24)
[2024-11-27] MEDS: MELATONIN 3 MG TABLET PO (21:24)
[2024-11-27] MEDS: Sotalol Hydrochloride 80 MG Tablet 120 MG PO (21:24)
[2024-11-27] MEDS: Atorvastatin Calcium 40 MG Tablet PO (22:00)
[2024-11-27 23:25] LABS: Bedside Glucose 165 mg/dL (74-106)
[2024-11-28 05:36] VITALS: BP 144/69; PULSE 61; RESP 15; TEMP 36.6; O2SAT 94
[2024-11-28] MEDS: Enoxaparin 40 MG/0.4 ML Syringe SC (05:40)
--- NOTE | 2024-11-28 07:02 | NURSING ---
Mitchell removed per order, pt tolerated well.
[2024-11-28 07:32] LABS: Bedside Glucose 140 mg/dL (74-106)
[2024-11-28] MEDS: Senna/Docusate Sodium 1 Tablet 2 TABLET PO ×2 (07:56→21:21)
[2024-11-28] MEDS: Clopidogrel Bisulfate 75 MG Tablet PO (07:56)
[2024-11-28] MEDS: Multivitamins,Therapeutic Tablet 1 TABLET PO (07:56)
[2024-11-28] MEDS: Pantoprazole Sodium 40 MG Tablet PO (07:56)
[2024-11-28] MEDS: Aspirin 81 MG TAB.CHEW PO (07:56)
[2024-11-28] MEDS: Arthritis Pain Compound 60 CLICK TUBE TOPICAL ×2 (07:57→21:23)
[2024-11-28] MEDS: Polyethylene Glycol 3350 17 GM PACKET PO ×2 (07:57→21:22)
[2024-11-28] MEDS: Glucerna Shake 120 ML LIQUID PO ×2 (07:58→16:28)
[2024-11-28] MEDS: HYDROmorphone 0.5 MG/0.5 ML SYRINGE 0.25 MG IV (11:52)
[2024-11-28] MEDS: 0.9% Saline Lock 10 ML Syringe IV ×2 (11:52→21:24)
[2024-11-28] MEDS: Insulin Lispro 100 UNIT/ML INSULN.PEN SC ×2 (11:54→16:29)
[2024-11-28 12:32] LABS: Bedside Glucose 180 mg/dL (74-106)
--- NOTE | 2024-11-28 14:47 | PN_ITS ---
Subjective Subjective Afebrile VSS -blood pressure over the past 24 hours has ranged from 125/65 to 144/69. Heart rate is ranged from 57-61. Maintaining appropriate oxygen saturation on RA Oral intake - FOOD highly variable. Ranges from 25 to 100%. He ate 75 to 100% of his lunch today with encouragement. He had 50 to 74% of his breakfast. FLUIDS oral fluid intake continues to be poor. He took 670 orally yesterday and had an additional 672 cc IV. He had 2400 cc of for a fluid balance of -1058. The blood sugar record was reviewed. No more hypoglycemia. Blood sugars over the past 30 hours have ranged from 1 40-1 80. Discussed with nursing -impulsive with poor safety awareness. Occasionally setting off the alarms trying to get out of bed by himself. Mitchell was discontinued this morning. Has had 1 postvoid residual so far and it was 160 cc. Reviewed the THERAPY notes Medication list reviewed. He was started on Glucophage 500 mg with supper yesterday. He remains on sliding scale insulin with meals since his appetite/intake is highly variable. More alert today. speech is more intelligible at times that it has been. He does not appear to be in any distress. Denies cephalgia, lightheadedness, nausea/vomiting/abdominal pain. Does not like the food and has to be strongly encouraged to eat and drink fluids. He is c/o pain in the neck......tells me that he was on Oxycontin in the past? Objective Data Objective Data Vital Signs: Vital Signs Temp Pulse Resp BP Pulse Ox O2 Del Method 97.9 F 61 15 144/69 H 94 Room Air 11/28/24 05:36 11/28/24 05:36 11/28/24 05:36 11/28/24 05:36 11/28/24 05:36 11/28/24 05:36 Oxygen Delivery Method Room Air Weight: 206 lb 5.643 oz Body Mass Index (BMI) 28.8 Intake & Output: Intake and Output for Last 24 Hours 11/26/24 11/27/24 11/28/24 23:59 23:59 23:59 Intake Total 2296 / 2296 1342.33 / 1342.33 220 / 220 Output Total 3550 / 3550 2400 / 2400 1100 / 1100 Balance -1254 / -1254 -1057.67 / -1057.67 -880 / -880 Lab / Micro Data 11/27/24 09:37 11/27/24 09:37 Labs: Laboratory Results - last 24 hr 11/27/24 17:02: POC Glucose 165 H 11/27/24 21:23: POC Glucose 165 H 11/28/24 06:55: POC Glucose 140 H 11/28/24 11:51: POC Glucose 180 H Micro: Microbiology 11/23/24 11:25 Blood Culture (Wb) - Anticubital Right Blood Culture - Final No growth in 5 days. 11/25/24 16:50 Stool Stool Occult Blood (DEEDEE) - Final 11/22/24 14:35 Urine Catheter - Mitchell Urine Culture - Final Milvia albicans Mixed Gram Positive Organisms Physical Exam Const alert Constitutional Narrative: speech is more intelligible today Still pretty garbled at times. Able to follow commands. Impulsive and poor safety awareness. Tells me that he could eat a hamburger and walk if we would just let him Slept pretty well last night. HEENT Mouth: dry mucous membranes Eyes PERRL and EOMs intact bilaterally Eyes Narrative: No disconjugate gaze Resp Resp Narrative: Very diminished in the bases. No wheezes. No crackles appreciated. No conversational dyspnea. Effort and Inspection: Negative for tachypneic Cardio regular rate, regular rhythm and no gallops Cardio Narrative: No ectopy GI GI Narrative: The abdomen is soft and nondistended. Bowel sounds are present in all quadrants. There is no guarding with palpation. No masses appreciated. Extremity no calf tenderness General Extremity: Negative for edema Skin Skin Narrative: Rash is unchanged from yesterday. He has redness in the L antecubital area.......had an IV. No increased warmth to touch. No DC. Will continue to monitor. Assessment & Plan Assessment/Plan (1) Debility: (2) Spinal cord tumor: (3) Status post laminectomy with spinal fusion: (4) Ischemic cerebrovascular accident (CVA): (5) Encephalopathy acute: (6) Facial droop: (7) Right sided weakness: (8) Aphasia: (9) Dysarthria: (10) Dysphagia: (11) Kevin-neglect of right side: (12) Urine retention: (13) UTI (urinary tract infection): QUALIFIERS: Urinary tract infection type: acute cystitis H ematuria presence: with hematuria Qualified Code(s): N30.01 - Acute cystitis with hematuria (14) Mitchell catheter in place: (15) Dehydration: (16) Diabetes mellitus, type 2: (17) HTN (hypertension): QUALIFIERS: Hypertension type: unspecified Qualified Code(s): I10 - Essential (primary) hypertension (18) High cholesterol: (19) Hypokalemia: PLAN: Plan 1. Continue therapy 2. Schedule the Tylenol 1 g p.o. every 8 hours- he does not tell the nurses when he is in pain. He did get 1 Flexeril today and it helped somewhat. 3. Continue metformin 500 mg with supper and sliding scale with meals. 4. Recheck a BMP on . 5. Encouraged him to increase his fluid intake 6. Reinforced with him that he has dysphagia and is at risk for aspiration. Encouraged him to increase his food intake even though he does not like the texture. 7. Supplement potassium Charges/Coding Visit Charges Inpatient E&M: 31532 Subs Hosp L1
--- NOTE | 2024-11-28 15:09 | CHAPLAIN ---
Type of Pastoral Visit ___ Initial Visit ___ Follow-up Visit ___ On-call Visit ___ General Patient Visit ___ Spiritual Assessment ___ Family Conference ___ Bereavement ___ Rapid Response ___ Code Blue ___ Other (describe below) Pastoral Care Referral From ___ Patient ___ Family ___ Nurse ___ Physician ___ Customer Care Coordinator ___ Medical Researcher ___ Other (describe below) Sacrament/Intervention ___ Active listening ___ Anointing ___ Yarsani ___ Bereavement ___ Communion ___ Sara exploration ___ ___ Life review ___ Prayer ___ Reconciliation ___ Sacrament of Sick ___ Supportive presence ___ Wedding ___ Other (describe below) Pastoral Comments patient is sound asleep; did not disturb
[2024-11-28] MEDS: metFORMIN (XR) 500 MG Tablet PO (16:28)
[2024-11-28] MEDS: cycloBENZAPRine HCl 5 MG TABLET PO (16:31)
[2024-11-28 17:32] VITALS: BP 127/68; PULSE 60; RESP 16; TEMP 36.3; O2SAT 100
[2024-11-28 17:37] LABS: Bedside Glucose 199 mg/dL (74-106)
[2024-11-28] MEDS: Sotalol Hydrochloride 80 MG Tablet 120 MG PO (21:21)
[2024-11-28] MEDS: Acetaminophen 500 MG Tablet 1000 MG PO (21:21)
[2024-11-28] MEDS: Atorvastatin Calcium 40 MG Tablet PO (21:21)
[2024-11-28] MEDS: Mirtazapine 15 MG Tablet PO (21:22)
[2024-11-28] MEDS: MELATONIN 3 MG TABLET PO (21:22)
[2024-11-28 21:59] LABS: Bedside Glucose 174 mg/dL (74-106)
[2024-11-29] MEDS: Enoxaparin 40 MG/0.4 ML Syringe SC (05:29)
[2024-11-29] MEDS: Acetaminophen 500 MG Tablet 1000 MG PO ×3 (05:29→20:36)
[2024-11-29 05:33] VITALS: BP 135/74; PULSE 60; RESP 20; TEMP 36.4; O2SAT 92
[2024-11-29 07:54] LABS: Bedside Glucose 133 mg/dL (74-106)
[2024-11-29] MEDS: Arthritis Pain Compound 60 CLICK TUBE TOPICAL ×2 (10:02→20:34)
[2024-11-29] MEDS: Aspirin 81 MG TAB.CHEW PO (10:03)
[2024-11-29] MEDS: Multivitamins,Therapeutic Tablet 1 TABLET PO (10:03)
[2024-11-29] MEDS: Clopidogrel Bisulfate 75 MG Tablet PO (10:03)
[2024-11-29] MEDS: Polyethylene Glycol 3350 17 GM PACKET PO (10:03)
[2024-11-29] MEDS: Pantoprazole Sodium 40 MG Tablet PO (10:03)
[2024-11-29] MEDS: Senna/Docusate Sodium 1 Tablet 2 TABLET PO (10:03)
[2024-11-29 12:07] LABS: Bedside Glucose 147 mg/dL (74-106)
[2024-11-29] MEDS: cycloBENZAPRine HCl 5 MG TABLET PO (13:43)
[2024-11-29] MEDS: Magnesium Hydroxide 30 ML UDC PO (14:13)
[2024-11-29] MEDS: Glucerna Shake 120 ML LIQUID PO (16:13)
[2024-11-29] MEDS: metFORMIN (XR) 500 MG Tablet PO (16:13)
[2024-11-29] MEDS: Tamsulosin HCl 0.4 MG Capsule PO (16:13)
[2024-11-29] MEDS: Insulin Lispro 100 UNIT/ML INSULN.PEN SC (16:15)
[2024-11-29 17:11] LABS: Bedside Glucose 153 mg/dL (74-106)
[2024-11-29 18:00] VITALS: BP 127/77; PULSE 59; RESP 16; TEMP 36.8; O2SAT 96
[2024-11-29] MEDS: Sotalol Hydrochloride 80 MG Tablet 120 MG PO (20:34)
[2024-11-29] MEDS: MELATONIN 3 MG TABLET PO (20:35)
[2024-11-29] MEDS: Atorvastatin Calcium 40 MG Tablet PO (20:35)
[2024-11-29] MEDS: 0.9% Saline Lock 10 ML Syringe IV (20:49)
[2024-11-29] MEDS: Mirtazapine 15 MG Tablet 7.5 MG PO (21:16)
[2024-11-29] MEDS: Petrolatum,White 5 GM PACKET 1 APPLIC TOPICAL (21:17)
[2024-11-29] MEDS: Menthol/Lanolin/Calamine/Znox 113 GM Tube 1 APPLIC TOPICAL (21:24)
[2024-11-29 22:07] LABS: Bedside Glucose 192 mg/dL (74-106)
[2024-11-30] MEDS: Acetaminophen 500 MG Tablet 1000 MG PO ×3 (05:16→20:03)
[2024-11-30] MEDS: Enoxaparin 40 MG/0.4 ML Syringe SC (05:17)
[2024-11-30 05:19] VITALS: BP 121/75; PULSE 60; RESP 14; TEMP 36.3; O2SAT 97
[2024-11-30 05:20] VITALS: BMI 28.2
[2024-11-30 05:34] LABS: Anion Gap 6 (5-15); BUN 15 mg/dL (7-18); BUN/Creat Ratio 23.1 RATIO (10-20); Calcium,Total 8.7 mg/dL (8.5-10.1); Chloride 106 mmol/L (98-107); Creatinine, Serum 0.65 mg/dL (0.70-1.30); EST Glomerular Filtration Rate 129 mL/min (>60); Est Glom Filt Rate - Afr Amer 156 mL/min (>60); Estimated Creatinine Clearance 99.58 ml/min; Glucose 122 mg/dL (74-106); Potassium 4.2 mmol/L (3.5-5.1); Sodium Level 137 mmol/L (136-145)
[2024-11-30 07:07] LABS: Bedside Glucose 131 mg/dL (74-106)
[2024-11-30] MEDS: Pantoprazole Sodium 40 MG Tablet PO (07:59)
[2024-11-30] MEDS: Aspirin 81 MG TAB.CHEW PO (07:59)
[2024-11-30] MEDS: Multivitamins,Therapeutic Tablet 1 TABLET PO (07:59)
[2024-11-30] MEDS: Arthritis Pain Compound 60 CLICK TUBE TOPICAL ×2 (07:59→20:01)
[2024-11-30] MEDS: Clopidogrel Bisulfate 75 MG Tablet PO (07:59)
[2024-11-30] MEDS: Senna/Docusate Sodium 1 Tablet 2 TABLET PO ×2 (08:00→20:03)
[2024-11-30] MEDS: Menthol/Lanolin/Calamine/Znox 113 GM Tube 1 APPLIC TOPICAL ×2 (08:01→20:04)
[2024-11-30] MEDS: Polyethylene Glycol 3350 17 GM PACKET PO ×2 (08:01→20:03)
[2024-11-30] MEDS: Glucerna Shake 120 ML LIQUID PO ×3 (08:04→17:18)
--- NOTE | 2024-11-30 10:38 | PN_ITS ---
Subjective Subjective Afebrile VSS -blood pressure over the past 24 hours has ranged from 121/75 to 135/74. Heart rate is 59-60. Maintaining appropriate oxygen saturation on RA Oral intake - FOOD did better eating yesterday. He refused breakfast but ate 50 to 100% of lunch and supper. He had 75 to 100% of his breakfast this morning. FLUIDS fluid intake was better yesterday and he had 1454 relief. Fluid balance was -20 yesterday. Has been in negative fluid balance for the past 4 days. Last bowel movement was yesterday. His weight is down approximately 8 to 8-1/2 pounds since admission to rehab. The blood sugar record was reviewed. Blood sugars are well-controlled with no hypoglycemia. Discussed with nursing - no problems that need addressed. Nursing reports he is drowsy this AM but, when I saw him he was very alert and appropriate. Mirtazapine was decreased to 7.5 mg last night. Nursing was doing the orthostatics and when he got to a standing position he became lightheaded and diaphoretic. They were not able to obtain a blood pressure while standing. Blood pressure did not change significantly when going from lying to sitting. Reviewed the THERAPY notes Medication list reviewed. Sodium is 137 and the potassium is 4.2 today. Bicarb is normal at 26 and the BUN is 15, up from 11 on 11/27/2024. Creatinine is 0.65 which is up from 0.55 on 11/25/2024. C/O lightheadedness and pain in the Shoulder. Denies chest pain, shortness of breath, cough, nausea/vomiting/abdominal pain, calf pain. Urine in the Mitchell bag is dark holley today. He also complains of dry mouth. He states he would eat if he like the food but he does not like the food he is getting. Objective Data Objective Data Vital Signs: Vital Signs Temp Pulse Resp BP Pulse Ox O2 Del Method 97.3 F L 60 14 121/75 H 97 Room Air 11/30/24 05:19 11/30/24 05:19 11/30/24 05:19 11/30/24 05:19 11/30/24 05:19 11/30/24 05:19 Oxygen Delivery Method Room Air Weight: 202 lb 9.677 oz Body Mass Index (BMI) 28.2 Intake & Output: Intake and Output for Last 24 Hours 11/28/24 11/29/24 11/30/24 23:59 23:59 23:59 Intake Total 640 / 900 1450 / 1450 340 / 340 Output Total 1800 / 1800 1470 / 1470 300 / 300 Balance -1160 / -900 -20 / -20 40 / 40 Lab / Micro Data 11/27/24 09:37 11/30/24 04:24 Labs: Laboratory Results - last 24 hr 11/29/24 11:41: POC Glucose 147 H 11/29/24 16:15: POC Glucose 153 H 11/29/24 21:23: POC Glucose 192 H 11/30/24 04:24: Sodium 137, Potassium 4.2, Chloride 106, Carbon Dioxide 26.0, Anion Gap 6, BUN 15, Creatinine 0.65 L, Estim Creat Clear Calc 99.58, Est GFR (MDRD) Af Amer 156, Est GFR (MDRD) Non-Af 129, BUN/Creatinine Ratio 23.1 H, G lucose 122 H, Calcium 8.7 11/30/24 05:09: POC Glucose 131 H Micro: Microbiology 11/23/24 11:25 Blood Culture (Wb) - Anticubital Right Blood Culture - Final No growth in 5 days. 11/25/24 16:50 Stool Stool Occult Blood (DEEDEE) - Final 11/22/24 14:35 Urine Catheter - Mitchell Urine Culture - Final Milvia albicans Mixed Gram Positive Organisms Physical Exam Const Constitutional Narrative: More alert today and appropriate. Participating better with therapy today. Speech is still pretty unintelligible. HEENT HEENT Narrative: Mucous membranes are extremely dry Resp Resp Narrative: CTA anterior and lateral. No cough. Not tachypneic and no conversational dyspnea.......even though can not understand what he is saying. Effort and Inspection: Negative for tachypneic, respiratory distress or uses accessory muscles Cardio regular rate, regular rhythm and no gallops GI normal to inspection, nondistended, normoactive bowel sounds and soft to palpation GI Narrative: No guarding with palpation Extremity no calf tenderness General Extremity: Negative for edema Neuro Neuro Narrative: making progress with therapy. More alert and able to participate with speech today. Speech is a little better but, I am still not able to understand most of what he is saying. Still imulsive with poor safety awareness. Today he is able to tell me how old he is, where he is at and why he is here. His tells me that he never knows the date but, he shuld know the year Assessment & Plan Assessment/Plan (1) Debility: (2) Spinal cord tumor: (3) Status post laminectomy with spinal fusion: (4) Ischemic cerebrovascular accident (CVA): (5) Encephalopathy acute: (6) Facial droop: (7) Right sided weakness: (8) Aphasia: (9) Dysarthria: (10) Dysphagia: (11) Kevin-neglect of right side: (12) Urine retention: (13) UTI (urinary tract infection): QUALIFIERS: Urinary tract infection type: acute cystitis H ematuria presence: with hematuria Qualified Code(s): N30.01 - Acute cystitis with hematuria (14) Mitchell catheter in place: (15) Dehydration: (16) Diabetes mellitus, type 2: (17) HTN (hypertension): QUALIFIERS: Hypertension type: unspecified Qualified Code(s): I10 - Essential (primary) hypertension (18) High cholesterol: (19) Dehydration symptoms: PLAN: Plan 1. Continue therapy 2. Check orthostatics today. -If he is orthostatic we will start IV fluids. I suspect some of the drowsiness is due to dehydration and poor cerebral perfusion. 3. More alert today with the decrease in the dose of the Remeron last night.........I don't know that this has anything to do with his level of alertness.....he may have just been tired yesterday. 4. He is completely pacer dependent. Can not increase the HR with exertion so if he gets any IV volume depletion he becomes lightheaded quickly. He is on Sotalol. 5. Add artificial saliva to the current drug regimen 5 times a day scheduled. 6. Started on 0.45% normal saline at 100 cc/h for 3 L. Charges/Coding Visit Charges Inpatient E&M: 62928 Subs Hosp L1
[2024-11-30 10:43] VITALS: BP 109/55; BP 126/53; PULSE 60
[2024-11-30] MEDS: Insulin Lispro 100 UNIT/ML INSULN.PEN SC ×2 (12:06→17:23)
[2024-11-30] MEDS: 0.9% Saline Lock 10 ML Syringe IV (12:07)
[2024-11-30 12:20] LABS: Bedside Glucose 209 mg/dL (74-106)
[2024-11-30] MEDS: 0.45% Normal Saline 1,000 ML 100 ML IV (14:35)
--- NOTE | 2024-11-30 15:59 | CHAPLAIN ---
Type of Pastoral Visit _x__ Initial Visit ___ Follow-up Visit ___ On-call Visit ___ General Patient Visit ___ Spiritual Assessment ___ Family Conference ___ Bereavement ___ Rapid Response ___ Code Blue ___ Other (describe below) Pastoral Care Referral From _x__ Patient ___ Family ___ Nurse ___ Physician ___ Budget Consultant ___ Production Boring Machine Operator ___ Other (describe below) Sacrament/Intervention _x__ Active listening ___ Anointing ___ Adventism ___ Bereavement ___ Communion _x__ Sara exploration ___ _x__ Life review _x__ Prayer ___ Reconciliation ___ Sacrament of Sick _x__ Supportive presence ___ Wedding ___ Other (describe below) Pastoral Comments patient reviews his surgeries after a discovery of a tumor on his spine; pt is hoping to get back home soon; pt is talkative about his life and his desire to be back home with his ; pt acknowledges the importance of sara in his journey; pt welcomes prayer and the visit
[2024-11-30 17:11] LABS: Bedside Glucose 163 mg/dL (74-106)
[2024-11-30] MEDS: metFORMIN (XR) 500 MG Tablet PO (17:18)
[2024-11-30] MEDS: Tamsulosin HCl 0.4 MG Capsule PO (17:18)
[2024-11-30] MEDS: Saliva Substitute 237 ML BOTTLE 15 ML MUCOUS MEM ×2 (17:19→20:02)
[2024-11-30 17:56] VITALS: BP 134/70; PULSE 59; RESP 16; TEMP 36.9; O2SAT 95
[2024-11-30] MEDS: Mirtazapine 15 MG Tablet 7.5 MG PO (20:01)
[2024-11-30] MEDS: Sotalol Hydrochloride 80 MG Tablet 120 MG PO (20:02)
[2024-11-30] MEDS: MELATONIN 3 MG TABLET PO (20:03)
[2024-11-30] MEDS: Atorvastatin Calcium 40 MG Tablet PO (20:03)
[2024-11-30] MEDS: Petrolatum,White 5 GM PACKET 1 APPLIC TOPICAL (20:17)
[2024-11-30 21:18] LABS: Bedside Glucose 177 mg/dL (74-106)
[2024-12-01] MEDS: 0.45% Normal Saline 1,000 ML 100 ML IV ×2 (00:32→11:18)
[2024-12-01] MEDS: Enoxaparin 40 MG/0.4 ML Syringe SC (05:25)
[2024-12-01] MEDS: Saliva Substitute 237 ML BOTTLE 15 ML MUCOUS MEM ×3 (05:25→13:17)
[2024-12-01] MEDS: Acetaminophen 500 MG Tablet 1000 MG PO ×3 (05:28→21:43)
[2024-12-01 06:00] VITALS: BP 127/68; PULSE 60; RESP 17; TEMP 36.1; O2SAT 97
[2024-12-01 06:32] LABS: Bedside Glucose 126 mg/dL (74-106)
[2024-12-01] MEDS: Senna/Docusate Sodium 1 Tablet 2 TABLET PO ×2 (07:51→21:44)
[2024-12-01] MEDS: Polyethylene Glycol 3350 17 GM PACKET PO ×2 (07:51→21:42)
[2024-12-01] MEDS: Arthritis Pain Compound 60 CLICK TUBE TOPICAL ×2 (07:51→21:40)
[2024-12-01] MEDS: Multivitamins,Therapeutic Tablet 1 TABLET PO (07:52)
[2024-12-01] MEDS: Pantoprazole Sodium 40 MG Tablet PO (07:52)
[2024-12-01] MEDS: Aspirin 81 MG TAB.CHEW PO (07:52)
[2024-12-01] MEDS: Glucerna Shake 120 ML LIQUID PO ×2 (07:52→13:17)
[2024-12-01] MEDS: Clopidogrel Bisulfate 75 MG Tablet PO (07:52)
[2024-12-01] MEDS: cycloBENZAPRine HCl 5 MG TABLET PO (08:33)
[2024-12-01] MEDS: Menthol/Lanolin/Calamine/Znox 113 GM Tube 1 APPLIC TOPICAL ×2 (10:59→21:41)
[2024-12-01 12:44] LABS: Bedside Glucose 149 mg/dL (74-106)
[2024-12-01] MEDS: metFORMIN (XR) 500 MG Tablet PO (17:08)
[2024-12-01] MEDS: Tamsulosin HCl 0.4 MG Capsule PO (17:08)
[2024-12-01 17:43] LABS: Bedside Glucose 149 mg/dL (74-106)
[2024-12-01 18:00] VITALS: BP 135/76; PULSE 60; RESP 18; TEMP 36.5; O2SAT 98
[2024-12-01] MEDS: Mirtazapine 15 MG Tablet 7.5 MG PO (21:39)
[2024-12-01] MEDS: Sotalol Hydrochloride 80 MG Tablet 120 MG PO (21:40)
[2024-12-01] MEDS: Atorvastatin Calcium 40 MG Tablet PO (21:41)
[2024-12-01] MEDS: MELATONIN 3 MG TABLET PO (21:41)
[2024-12-01 21:53] LABS: Bedside Glucose 210 mg/dL (74-106)
[2024-12-02 06:00] VITALS: BP 135/73; PULSE 61; RESP 17; TEMP 36.3; O2SAT 95
[2024-12-02] MEDS: Saliva Substitute 237 ML BOTTLE 15 ML MUCOUS MEM ×4 (06:12→21:15)
[2024-12-02] MEDS: Enoxaparin 40 MG/0.4 ML Syringe SC (06:13)
[2024-12-02] MEDS: Acetaminophen 500 MG Tablet 1000 MG PO ×3 (06:14→21:14)
[2024-12-02 06:46] LABS: Bedside Glucose 135 mg/dL (74-106)
[2024-12-02] MEDS: Aspirin 81 MG TAB.CHEW PO (08:25)
[2024-12-02] MEDS: Senna/Docusate Sodium 1 Tablet 2 TABLET PO ×2 (08:25→21:14)
[2024-12-02] MEDS: Multivitamins,Therapeutic Tablet 1 TABLET PO (08:25)
[2024-12-02] MEDS: Glucerna Shake 120 ML LIQUID PO ×2 (08:26→16:54)
[2024-12-02] MEDS: Clopidogrel Bisulfate 75 MG Tablet PO (08:26)
[2024-12-02] MEDS: Arthritis Pain Compound 60 CLICK TUBE TOPICAL ×2 (08:26→21:16)
[2024-12-02] MEDS: Polyethylene Glycol 3350 17 GM PACKET PO ×2 (08:26→21:15)
[2024-12-02] MEDS: Pantoprazole Sodium 40 MG Tablet PO (08:26)
[2024-12-02] MEDS: Menthol/Lanolin/Calamine/Znox 113 GM Tube 1 APPLIC TOPICAL ×2 (08:32→21:24)
[2024-12-02 11:45] LABS: Bedside Glucose 170 mg/dL (74-106)
[2024-12-02] MEDS: Insulin Lispro 100 UNIT/ML INSULN.PEN SC ×2 (11:52→16:54)
[2024-12-02] MEDS: metFORMIN (XR) 500 MG Tablet PO (16:54)
[2024-12-02] MEDS: Tamsulosin HCl 0.4 MG Capsule PO (16:54)
[2024-12-02 17:23] LABS: Bedside Glucose 199 mg/dL (74-106)
[2024-12-02 18:00] VITALS: BP 148/76; PULSE 60; RESP 16; TEMP 36.9; O2SAT 97
[2024-12-02] MEDS: MELATONIN 3 MG TABLET PO (21:15)
[2024-12-02] MEDS: Atorvastatin Calcium 40 MG Tablet PO (21:15)
[2024-12-02] MEDS: Mirtazapine 15 MG Tablet 7.5 MG PO (21:16)
[2024-12-02] MEDS: Sotalol Hydrochloride 80 MG Tablet 120 MG PO (21:23)
[2024-12-03 00:45] LABS: Bedside Glucose 174 mg/dL (74-106)
[2024-12-03] MEDS: Saliva Substitute 237 ML BOTTLE 15 ML MUCOUS MEM ×2 (05:50→10:15)
[2024-12-03] MEDS: Enoxaparin 40 MG/0.4 ML Syringe SC (05:50)
[2024-12-03] MEDS: Acetaminophen 500 MG Tablet 1000 MG PO ×3 (05:50→21:43)
[2024-12-03 05:58] VITALS: BP 121/66; PULSE 60; RESP 16; TEMP 36.3; O2SAT 98
[2024-12-03 05:59] VITALS: BMI 28.8
[2024-12-03] MEDS: 0.9% Saline Lock 10 ML Syringe IV (06:07)
[2024-12-03 06:44] LABS: Bedside Glucose 136 mg/dL (74-106)
[2024-12-03] MEDS: Multivitamins,Therapeutic Tablet 1 TABLET PO (10:13)
[2024-12-03] MEDS: Polyethylene Glycol 3350 17 GM PACKET PO (10:13)
[2024-12-03] MEDS: Clopidogrel Bisulfate 75 MG Tablet PO (10:13)
[2024-12-03] MEDS: Pantoprazole Sodium 40 MG Tablet PO (10:13)
[2024-12-03] MEDS: Senna/Docusate Sodium 1 Tablet 2 TABLET PO (10:13)
[2024-12-03] MEDS: Aspirin 81 MG TAB.CHEW PO (10:13)
[2024-12-03] MEDS: Glucerna Shake 120 ML LIQUID PO ×2 (10:14→16:54)
[2024-12-03] MEDS: Menthol/Lanolin/Calamine/Znox 113 GM Tube 1 APPLIC TOPICAL ×2 (10:17→21:42)
[2024-12-03 11:05] LABS: Bedside Glucose 235 mg/dL (74-106)
[2024-12-03] MEDS: Insulin Lispro 100 UNIT/ML INSULN.PEN SC (11:54)
[2024-12-03] MEDS: Arthritis Pain Compound 60 CLICK TUBE TOPICAL ×2 (11:54→21:40)
[2024-12-03] MEDS: Magnesium Hydroxide 30 ML UDC PO (16:54)
[2024-12-03] MEDS: metFORMIN (XR) 500 MG Tablet PO (16:54)
[2024-12-03] MEDS: Tamsulosin HCl 0.4 MG Capsule PO (16:54)
[2024-12-03 17:02] LABS: Bedside Glucose 148 mg/dL (74-106)
[2024-12-03 17:27] VITALS: BP 135/66; PULSE 60; RESP 16; TEMP 36.4; O2SAT 98
[2024-12-03] MEDS: Mirtazapine 15 MG Tablet 7.5 MG PO (21:39)
[2024-12-03] MEDS: Sotalol Hydrochloride 80 MG Tablet 120 MG PO (21:41)
[2024-12-03] MEDS: Petrolatum,White 5 GM PACKET 1 APPLIC TOPICAL (21:42)
[2024-12-03] MEDS: Atorvastatin Calcium 40 MG Tablet PO (21:42)
[2024-12-03] MEDS: MELATONIN 3 MG TABLET PO (21:42)
[2024-12-03 22:54] LABS: Bedside Glucose 228 mg/dL (74-106)
[2024-12-04] MEDS: Saliva Substitute 237 ML BOTTLE 15 ML MUCOUS MEM (05:23)
[2024-12-04] MEDS: Enoxaparin 40 MG/0.4 ML Syringe SC (05:24)
[2024-12-04] MEDS: Acetaminophen 500 MG Tablet 1000 MG PO ×3 (05:25→20:48)
[2024-12-04 06:00] VITALS: BP 127/65; PULSE 70; RESP 16; TEMP 37.1; O2SAT 95
[2024-12-04 06:43] LABS: Bedside Glucose 158 mg/dL (74-106)
[2024-12-04] MEDS: Pantoprazole Sodium 40 MG Tablet PO (07:57)
[2024-12-04] MEDS: Clopidogrel Bisulfate 75 MG Tablet PO (07:57)
[2024-12-04] MEDS: Insulin Lispro 100 UNIT/ML INSULN.PEN SC ×3 (07:57→16:54)
[2024-12-04] MEDS: Aspirin 81 MG TAB.CHEW PO (07:57)
[2024-12-04] MEDS: Multivitamins,Therapeutic Tablet 1 TABLET PO (07:57)
[2024-12-04] MEDS: Arthritis Pain Compound 60 CLICK TUBE TOPICAL ×2 (07:58→20:46)
[2024-12-04] MEDS: Senna/Docusate Sodium 1 Tablet 2 TABLET PO ×2 (07:58→20:47)
[2024-12-04] MEDS: Polyethylene Glycol 3350 17 GM PACKET PO (07:58)
[2024-12-04] MEDS: Glucerna Shake 120 ML LIQUID PO ×3 (07:59→16:55)
[2024-12-04] MEDS: cycloBENZAPRine HCl 5 MG TABLET PO (08:00)
[2024-12-04] MEDS: Menthol/Lanolin/Calamine/Znox 113 GM Tube 1 APPLIC TOPICAL ×2 (08:02→20:50)
--- NOTE | 2024-12-04 09:49 | PCM.PROGNOTE ---
Subjective Subjective Afebrile VSS -blood pressure over the weekend has ranged from 121/66 to 148/76. Heart rate is ranged from 60-70. Maintaining appropriate oxygen saturation on RA Oral intake - FOOD good FLUIDS poor the last 2 days. Was in negative fluid balance both days over the weekend. The weight yesterday was 206 pounds and 6 ounces which is up from 202 pounds and 10 ounces on 11/30/2024. I suspect this is due to better hydration. The blood sugar record was reviewed. Discussed with nursing - no problems that need addressed. Has been compliant with CPAP overnight. Sleeping well. Reviewed the THERAPY notes Medication list reviewed. Has had 5 doses of Flomax 0.4 mg. Will do a voiding trial in the AM. Denies JOHNSON, lightheadedness, CP, SOB, nausea/vomiting/abdominal pain, suprapubic pain and calf tenderness. His biggest complaint is pain in the Left shoulder with therapy and with sitting up in the chair. The Tylenol, Flexeril and arthritis pain cream help but, he is requesting Oxycodone. Pt and his tell me that he takes Oxycodone with no altered mental status BUT, this was prior to the stroke. Did not get any Flexeril over the weekend. Objective Data Objective Data Vital Signs: Vital Signs Temp Pulse Resp BP Pulse Ox O2 Del Method 98.8 F 70 16 127/65 H 95 Room Air 12/04/24 06:00 12/04/24 06:00 12/04/24 06:00 12/04/24 06:00 12/04/24 06:00 12/04/24 06:00 Oxygen Delivery Method Room Air Weight: 206 lb 5.643 oz Body Mass Index (BMI) 28.8 Intake & Output: Intake and Output for Last 24 Hours 12/02/24 12/03/24 12/04/24 23:59 23:59 23:59 Intake Total 1520 / 1520 840 / 1090 550 / 550 Output Total 2850 / 2850 2200 / 2850 900 / 900 Balance -1330 / -1330 -1360 / -1760 -350 / -350 Lab / Micro Data 11/27/24 09:37 11/30/24 04:24 Labs: Laboratory Results - last 24 hr 12/03/24 10:42: POC Glucose 235 H 12/03/24 16:41: POC Glucose 148 H 12/03/24 21:38: POC Glucose 228 H 12/04/24 06:14: POC Glucose 158 H Micro: Microbiology 11/23/24 11:25 Blood Culture (Wb) - Anticubital Right Blood Culture - Final No growth in 5 days. 11/25/24 16:50 Stool Stool Occult Blood (DEEDEE) - Final 11/22/24 14:35 Urine Catheter - Mitchell Urine Culture - Final Milvia albicans Mixed Gram Positive Organisms Physical Exam Const alert Constitutional Narrative: oriented to place and his age. Could not tell me the month or the year Speech is much more intelligible. HEENT HEENT Narrative: The artificial saliva is helping with the dry mouth. Mouth: dry mucous membranes Resp clear to auscultation bilaterally Resp Narrative: Lying flat in bed with no SOB. Not tachypneic. Cardio regular rate, regular rhythm and no gallops GI normal to inspection, nondistended, normoactive bowel sounds, soft to palpation and non-tender GI Narrative: No guarding with palpation. 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 The urine is clear. Extremity no calf tenderness General Extremity: Negative for edema Skin Rashes: no rashes Neuro Neuro Narrative: Fatigues very Easily. Still needing the ti lift to stand him. He is able to manage the WC with no assist. Psych cooperative Assessment & Plan Assessment/Plan (1) Debility: (2) Spinal cord tumor: (3) Status post laminectomy with spinal fusion: (4) Ischemic cerebrovascular accident (CVA): (5) Encephalopathy acute: (6) Facial droop: (7) Right sided weakness: (8) Aphasia: (9) Dysarthria: (10) Dysphagia: (11) Kevin-neglect of right side: (12) Urine retention: (13) UTI (urinary tract infection): QUALIFIERS: Urinary tract infection type: acute cystitis Hematuria presence: with hematuria Qualified Code(s): N30.01 - Acute cystitis with hematuria (14) Imtchell catheter in place: (15) Dehydration: (16) Diabetes mellitus, type 2: 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 Continue therapy 2. BMP, CBC and Phos in the a.m. 3. Start glargine 10 units nightly 4. Increase the metformin XR to 500 mg twice daily and continue the sliding insulin scale 3 times daily AC 5. Voiding trial in the a.m. 6. has a hx of back problems and will not be able to lift him. He s not able to ambulate yet. He has no awareness of the extent of his deficits. Thinks he could walk to the if we would just get him a walker. Very poor safety awareness. Wants to go home this weekend and there is no way his could manage him at home at this point. She will come in next Wednesday for family training to see how much assistance he needs and at that time will need to make a determination on where he will go at [place]. 7. Continue Tylenol 1 g p.o. every 8 hours. Schedule Flexeril twice daily. And oxycodone 5 mg p.o. every 6 hours as needed pain not relieved with Tylenol, Flexeril and arthritis cream. Has been needing MOM to have a BM then he generally has 2 BM's and then no BM for another 3 days. He got MOM yesterday and has had 2 BM's in the past 24 hours. This has been a lifelong problem per his . He refused the senna and the Miralax last night. Will comuunicate this to his that unless he is having frequent loose stool he needs to take the stool softeners as directed.
[2024-12-04 12:05] LABS: Bedside Glucose 177 mg/dL (74-106)
--- NOTE | 2024-12-04 12:57 | CASEMGMT ---
Social Work IDT met with patient and for Team meeting. Discussed patient's progress in PT/OT/ST/SN. Educated to Medicare approval with DC 12/15. SW inquired about 's abilities to care for pt at home, goals for DC - home vs SNF. Discussed at length the differences between current LOF and baseline. Concluded to allow another week of therapy and scheduled therapy training on 12/11 after next Team meeting, for to determine home or SNF. SW did provide with list of SNF providers that include quality and resource data via [facility]. SW will continue to follow for DC planning. Samantha Diaz POWDER CORE TESTER SPEAKER WIRER
[2024-12-04] MEDS: Tamsulosin HCl 0.4 MG Capsule PO (16:55)
[2024-12-04] MEDS: metFORMIN (XR) 500 MG Tablet PO (16:55)
[2024-12-04 17:35] LABS: Bedside Glucose 207 mg/dL (74-106)
[2024-12-04 18:00] VITALS: BP 131/74; PULSE 60; RESP 16; TEMP 36.7; O2SAT 95
[2024-12-04] MEDS: Mirtazapine 15 MG Tablet 7.5 MG PO (20:44)
[2024-12-04] MEDS: Sotalol Hydrochloride 80 MG Tablet 120 MG PO (20:46)
[2024-12-04] MEDS: MELATONIN 3 MG TABLET PO (20:47)
[2024-12-04] MEDS: Atorvastatin Calcium 40 MG Tablet PO (20:47)
[2024-12-04] MEDS: Insulin Glargine-YFGN 100 UNIT/ML Pen 10 UNIT SC (21:02)
[2024-12-04] MEDS: Petrolatum,White 5 GM PACKET 1 APPLIC TOPICAL (21:02)
[2024-12-04 23:02] LABS: Bedside Glucose 205 mg/dL (74-106)
[2024-12-05] MEDS: Acetaminophen 500 MG Tablet 1000 MG PO ×3 (05:30→20:16)
[2024-12-05] MEDS: 0.9% Saline Lock 10 ML Syringe IV (05:30)
[2024-12-05] MEDS: Enoxaparin 40 MG/0.4 ML Syringe SC (05:36)
[2024-12-05] MEDS: Saliva Substitute 237 ML BOTTLE 15 ML MUCOUS MEM ×2 (05:39→07:47)
[2024-12-05 06:00] VITALS: BP 142/84; PULSE 60; RESP 18; TEMP 36.9; O2SAT 99
--- NOTE | 2024-12-05 06:29 | NURSING ---
Mitchell cath removed at this time per order, patient tolerated well,
[2024-12-05 06:47] LABS: Bedside Glucose 148 mg/dL (74-106)
[2024-12-05] MEDS: cycloBENZAPRine HCl 5 MG TABLET PO ×2 (07:18→14:26)
[2024-12-05] MEDS: Glucerna Shake 120 ML LIQUID PO ×2 (07:46→12:17)
[2024-12-05] MEDS: metFORMIN (XR) 500 MG Tablet PO ×2 (07:47→16:54)
[2024-12-05] MEDS: Multivitamins,Therapeutic Tablet 1 TABLET PO (07:47)
[2024-12-05] MEDS: Arthritis Pain Compound 60 CLICK TUBE TOPICAL ×3 (07:47→20:18)
[2024-12-05] MEDS: Aspirin 81 MG TAB.CHEW PO (07:47)
[2024-12-05] MEDS: Polyethylene Glycol 3350 17 GM PACKET PO (07:48)
[2024-12-05] MEDS: Pantoprazole Sodium 40 MG Tablet PO (07:48)
[2024-12-05] MEDS: Clopidogrel Bisulfate 75 MG Tablet PO (07:49)
[2024-12-05] MEDS: Senna/Docusate Sodium 1 Tablet 2 TABLET PO (07:49)
[2024-12-05 09:00] LABS: Anion Gap 6 (5-15); BUN 12 mg/dL (7-18); BUN/Creat Ratio 16.6 RATIO (10-20); Calcium,Total 9.1 mg/dL (8.5-10.1); Chloride 106 mmol/L (98-107); Creatinine, Serum 0.72 mg/dL (0.70-1.30); EST Glomerular Filtration Rate 114 mL/min (>60); Est Glom Filt Rate - Afr Amer 138 mL/min (>60); Estimated Creatinine Clearance 100.41 ml/min; Glucose 194 mg/dL (74-106); Phosphorus 4.2 mg/dL (2.5-4.9); Potassium 4.1 mmol/L (3.5-5.1); Sodium Level 140 mmol/L (136-145)
[2024-12-05 09:02] LABS: Hematocrit 33.9 % (40-54); Hemoglobin 11.2 g/dL (13.0-16.5); Mean Corpuscular Hgb 29.2 pg (27.0-32.0); Mean Corpuscular Volume 88.5 fL (80-94); Mean Platelet Vol. 8.7 fl (6.2-12.0); Platelet Count 224 K/mm3 (150-450); RBC Distribution Width CV 13.2 % (11.6-14.6); RBC Distribution Width SD 42.4 fl (35.1-43.9); Red Blood Count 3.83 M/mm3 (4.6-6.2); White Blood Count 4.8 K/mm3 (4.4-11.0)
--- NOTE | 2024-12-05 09:22 | NURSING ---
SUMMERS WAS REMOVED THIS AM BY JOB MOLDER AT 0630. HAS VOIDED 200cc THIS AM WITH PVR 196cc. WILL CONT' TO MONITOR.
--- NOTE | 2024-12-05 10:36 | PN_ITS ---
Subjective Subjective Afebrile VSS -blood pressure over the past 24 hours has ranged from 127/65 to 132/84. Heart rate is 60. Maintaining appropriate oxygen saturation on RA Oral intake - FOOD good FLUIDS oral fluid intake has improved. He had 1930 cc in yesterday but, 3920 out for a fluid balance of -2019? He is not on a diuretic. Had 3 bowel movements yesterday Discussed with nursing - no problems that need addressed. The Mitchell catheter was discontinued earlier this morning and he was able to void. The postvoid residual was 196 cc. Will continue to monitor. Still with occasional fecal incontinence. Was able to use the urinal to void today. Reviewed the THERAPY notes Medication list reviewed. Has not taken any as needed oxycodone since it was ordered yesterday. All lab drawn this morning was personally reviewed. White blood cell count is normal. Hemoglobin is stable at 11.3 and platelets are within normal limits. Sodium is 140 and the potassium is stable at 4.1. BUN is 12 with a creatinine of 0.72. Calcium is normal and the phosphorus is normal at 4.2 now. Deondre denies lightheadedness, shortness of breath, palpitations, chest pain, cough, sore throat, nausea/vomiting/abdominal pain, dysuria. Has urinated 3 times already today. Feeling frustrated but, realizes he has been through a lot the past 6 months and also realizes he has made progress while on rehab. Sleeping well at night and appetite is much better. Objective Data Objective Data Vital Signs: Vital Signs Temp Pulse Resp BP Pulse Ox O2 Del Method 98.4 F 60 18 142/84 H 99 Room Air 12/05/24 06:00 12/05/24 06:00 12/05/24 06:00 12/05/24 06:00 12/05/24 06:00 12/05/24 06:00 Oxygen Delivery Method Room Air Weight: 206 lb 5.643 oz Body Mass Index (BMI) 28.8 Intake & Output: Intake and Output for Last 24 Hours 12/03/24 12/04/24 12/05/24 23:59 23:59 23:59 Intake Total 840 / 1090 1930 / 1930 990 / 990 Output Total 2200 / 2850 3950 / 3950 600 / 600 Balance -1360 / -1760 -2019 / 390 / 390 Lab / Micro Data 12/05/24 08:40 12/05/24 08:40 Labs: Laboratory Results - last 24 hr 12/04/24 11:37: POC Glucose 177 H 12/04/24 16:43: POC Glucose 207 H 12/04/24 21:01: POC Glucose 205 H 12/05/24 06:28: POC Glucose 148 H 12/05/24 08:40: WBC 4.8, RBC 3.83 L, Hgb 11.2 L, Hct 33.9 L, MCV 88.5, MCH 29.2, MCHC 33.0, RDW Std Deviation 42.4, RDW Coeff of Magdalena 13.2, Plt Count 224, MPV 8.7, Sodium 140, Potassium 4.1, Chloride 106, Carbon Dioxide 28.0, Anion Gap 6, BUN 12, Creatinine 0.72, Estim Creat Clear Calc 100.41, Est GFR (MDRD) Af Amer 138, Est GFR (MDRD) Non-Af 114, BUN/Creatinine Ratio 16.6, Glucose 194 H, Calcium 9.1, Phosphorus 4.2 Micro: Microbiology 11/23/24 11:25 Blood Culture (Wb) - Anticubital Right Blood Culture - Final No growth in 5 days. 11/25/24 16:50 Stool Stool Occult Blood (DEEDEE) - Final 11/22/24 14:35 Urine Catheter - Mitchell Urine Culture - Final Milvia albicans Mixed Gram Positive Organisms Physical Exam Const alert Constitutional Narrative: oriented to place and his age. Could not tell me the month or the year Speech is much more intelligible. HEENT Mouth: dry mucous membranes Resp clear to auscultation bilaterally Resp Narrative: Lying flat in bed with no SOB. Not tachypneic. Cardio regular rate, regular rhythm and no gallops GI normal to inspection, nondistended, normoactive bowel sounds, soft to palpation and non-tender GI Narrative: No guarding with palpation. 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 The urine is clear. Extremity no calf tenderness General Extremity: Negative for edema Skin Rashes: no rashes Neuro Neuro Narrative: Fatigues very Easily. Still needing the ti lift to stand him. He is able to manage the WC with no assist. Psych cooperative Assessment & Plan Assessment/Plan (1) Debility: (2) Spinal cord tumor: (3) Status post laminectomy with spinal fusion: (4) Ischemic cerebrovascular accident (CVA): (5) Encephalopathy acute: (6) Facial droop: (7) Right sided weakness: (8) Aphasia: (9) Dysarthria: (10) Dysphagia: (11) Kevin-neglect of right side: (12) Urine retention: (13) UTI (urinary tract infection): QUALIFIERS: Urinary tract infection type: acute cystitis H ematuria presence: with hematuria Qualified Code(s): N30.01 - Acute cystitis with hematuria (14) Mitchell catheter in place: (15) Dehydration: (16) Diabetes mellitus, type 2: QUALIFIERS: Diabetes mellitus custodial insulin use: without staff veterinarian use (17) HTN (hypertension): QUALIFIERS: Hypertension type: unspecified Qualified Code(s): I10 - Essential (primary) hypertension (18) High cholesterol: (19) Constipation: QUALIFIERS: Constipation type: unspecified constipation type Q ualified Code(s): K59.00 - Constipation, unspecified PLAN: Plan 1. Continue therapy 2. Increase mirtazapine to 15 mg nightly at 8 PM. 3. Continue glargine 10 units at night and metformin 500 mg twice daily. Continue sliding scale insulin, increased to a low medium dosing. 4. Add Cozaar 25 mg p.o. nightly. Has a history of cough with lisinopril so we will use an ARB. He has proteinuria on his UA. 5. Increase the arthritis cream to TID 6. change the Flexeril to jeff.......nursing did give the Flexeril this morning Deondre tells me the pain in then neck is somewhat better today. 7. Amanda will be in for family training on Wednesday Charges/Coding Visit Charges Inpatient E&M: 87134 Subs Hosp L1
[2024-12-05 11:38] LABS: Bedside Glucose 197 mg/dL (74-106)
[2024-12-05] MEDS: Insulin Lispro 100 UNIT/ML INSULN.PEN SC ×2 (12:16→16:54)
[2024-12-05] MEDS: Menthol/Lanolin/Calamine/Znox 113 GM Tube 1 APPLIC TOPICAL ×2 (12:19→20:18)
--- NOTE | 2024-12-05 12:23 | NS ---
12/05/24: Per AMINA Fonseca, pt is not drinking Amauri supplements. RDN will discontinue Amauri supplement. Odalys Scott RDN, LD
[2024-12-05] MEDS: Tamsulosin HCl 0.4 MG Capsule PO (16:54)
[2024-12-05 17:25] LABS: Bedside Glucose 150 mg/dL (74-106)
[2024-12-05 18:00] VITALS: BP 131/70; PULSE 60; RESP 16; TEMP 36.4; O2SAT 97
[2024-12-05 19:50] VITALS: PULSE 60; RESP 16
[2024-12-05 20:00] VITALS: BP 138/70; PULSE 60; O2SAT 98
[2024-12-05] MEDS: Sotalol Hydrochloride 80 MG Tablet 120 MG PO (20:15)
[2024-12-05] MEDS: Losartan Potassium 25 MG Tablet PO (20:16)
[2024-12-05] MEDS: MELATONIN 3 MG TABLET PO (20:16)
[2024-12-05] MEDS: Atorvastatin Calcium 40 MG Tablet PO (20:17)
[2024-12-05] MEDS: Mirtazapine 15 MG Tablet PO (20:17)
[2024-12-05] MEDS: Insulin Glargine-YFGN 100 UNIT/ML Pen 10 UNIT SC (20:20)
[2024-12-05] MEDS: Petrolatum,White 5 GM PACKET 1 APPLIC TOPICAL (20:20)
--- NOTE | 2024-12-05 20:46 | NURSING ---
2000 pt reports that he is having chest pain a 4/10 on the pain scale in the center of his chest that just started at this time. pt denied any other sx, vs taken were as follows spo2 was 98% on room air , bp was 138/70 and ap was 60. blood sugar was 232 this hs rn made aware of the following. pt refused c-pap or 02 when offered this hs
[2024-12-05 21:48] LABS: Bedside Glucose 232 mg/dL (74-106)
--- NOTE | 2024-12-06 00:43 | NURSING ---
REVIEWED AND AGREE WITH Orlando DOMINGUEZ, ASSESSMENT AND DOCUMENTATION CHARTING.
[2024-12-06] MEDS: 0.9% Saline Lock 10 ML Syringe IV (05:38)
[2024-12-06] MEDS: Enoxaparin 40 MG/0.4 ML Syringe SC (05:39)
[2024-12-06] MEDS: Saliva Substitute 237 ML BOTTLE 15 ML MUCOUS MEM ×2 (05:39→21:18)
[2024-12-06] MEDS: Acetaminophen 500 MG Tablet 1000 MG PO ×3 (05:39→21:14)
--- NOTE | 2024-12-06 05:47 | NURSING ---
Patient bladder scanned for 616ml at time, straight cathed for 475ml at time, patient tolerated well, no c/o voiced.
[2024-12-06] MEDS: cycloBENZAPRine HCl 5 MG TABLET PO ×2 (05:58→14:35)
[2024-12-06 05:59] VITALS: BP 117/69; PULSE 59; RESP 16; TEMP 36.4; O2SAT 100
[2024-12-06] MEDS: Arthritis Pain Compound 60 CLICK TUBE TOPICAL ×3 (06:03→21:15)
[2024-12-06 07:21] LABS: Bedside Glucose 141 mg/dL (74-106)
[2024-12-06 08:00] VITALS: BMI 28.9
[2024-12-06] MEDS: Glucerna Shake 120 ML LIQUID PO ×3 (08:16→17:41)
[2024-12-06] MEDS: Aspirin 81 MG TAB.CHEW PO (08:16)
[2024-12-06] MEDS: metFORMIN (XR) 500 MG Tablet PO ×2 (08:16→17:41)
[2024-12-06] MEDS: Multivitamins,Therapeutic Tablet 1 TABLET PO (08:17)
[2024-12-06] MEDS: Pantoprazole Sodium 40 MG Tablet PO (08:17)
[2024-12-06] MEDS: Clopidogrel Bisulfate 75 MG Tablet PO (08:17)
[2024-12-06] MEDS: Senna/Docusate Sodium 1 Tablet 2 TABLET PO (08:17)
[2024-12-06] MEDS: Menthol/Lanolin/Calamine/Znox 113 GM Tube 1 APPLIC TOPICAL ×2 (08:17→21:15)
[2024-12-06 12:14] LABS: Bedside Glucose 180 mg/dL (74-106)
[2024-12-06] MEDS: Insulin Lispro 100 UNIT/ML INSULN.PEN SC ×2 (12:34→17:41)
[2024-12-06 17:12] LABS: Bedside Glucose 216 mg/dL (74-106)
[2024-12-06] MEDS: Tamsulosin HCl 0.4 MG Capsule PO (17:41)
[2024-12-06 18:00] VITALS: BP 140/64; PULSE 59; RESP 17; TEMP 36.5; O2SAT 95
[2024-12-06 20:30] VITALS: PULSE 59; RESP 17
[2024-12-06] MEDS: Sotalol Hydrochloride 80 MG Tablet 120 MG PO (21:13)
[2024-12-06] MEDS: Petrolatum,White 5 GM PACKET 1 APPLIC TOPICAL (21:13)
[2024-12-06] MEDS: MELATONIN 3 MG TABLET PO (21:14)
[2024-12-06] MEDS: Losartan Potassium 25 MG Tablet PO (21:14)
[2024-12-06] MEDS: Atorvastatin Calcium 40 MG Tablet PO (21:14)
[2024-12-06] MEDS: Mirtazapine 15 MG Tablet PO (21:14)
[2024-12-06] MEDS: Insulin Glargine-YFGN 100 UNIT/ML Pen 10 UNIT SC (21:22)
[2024-12-06 22:27] LABS: Bedside Glucose 150 mg/dL (74-106)
[2024-12-07 06:00] VITALS: BP 128/76; PULSE 60; RESP 16; O2SAT 100
[2024-12-07] MEDS: Acetaminophen 500 MG Tablet 1000 MG PO ×3 (06:40→20:36)
[2024-12-07] MEDS: Enoxaparin 40 MG/0.4 ML Syringe SC (06:41)
[2024-12-07] MEDS: cycloBENZAPRine HCl 5 MG TABLET PO ×2 (06:43→13:34)
[2024-12-07] MEDS: Saliva Substitute 237 ML BOTTLE 15 ML MUCOUS MEM (06:45)
[2024-12-07] MEDS: Arthritis Pain Compound 60 CLICK TUBE TOPICAL ×3 (06:46→20:47)
[2024-12-07 07:24] LABS: Bedside Glucose 133 mg/dL (74-106)
--- NOTE | 2024-12-07 08:23 | PCM.PROGNOTE ---
Subjective Subjective Afebrile VSS - Maintaining appropriate oxygen saturation on RA Oral intake - FOOD good FLUIDS good The BS record was reviewed. Adjustments were made to the Metformin Would like to see all the BS's consistently under 200 with no hypoglycemia. Discussed with nursing -has had to be straight cath several times for urinary retention greater than 300 cc. If the postvoid residual this morning is still greater than 300 will reinsert the Mitchell catheter and increase the Flomax. Has been refusing MiraLAX. Had 2 bowel movements on the and 2 bowel movements on the . Reviewed the THERAPY notes - Still needing the ti-lift to come to standing. Unable to ambulate. ?He is able to propel the WC by himself without assist for up to 50'. Still mod-MAX assist with bed mobility. Medication list reviewed. Objective Data Objective Data Vital Signs: Vital Signs Temp Pulse Resp BP Pulse Ox O2 Del Method 97.7 F L 60 16 128/76 H 100 CPAP 12/06/24 18:00 12/07/24 06:00 12/07/24 06:00 12/07/24 06:00 12/07/24 06:00 12/07/24 06:00 Oxygen Delivery Method CPAP Weight: 206 lb 12.8 oz Body Mass Index (BMI) 28.9 Intake & Output: Intake and Output for Last 24 Hours 12/05/24 12/06/24 12/07/24 23:59 23:59 23:59 Intake Total 1140 / 1140 2225 / 2225 100 / 100 Output Total 2250 / 2250 2500 / 2500 Balance -1110 / -1110 -275 / -275 100 / 100 Lab / Micro Data 12/05/24 08:40 12/05/24 08:40 Labs: Laboratory Results - last 24 hr 12/06/24 11:52: POC Glucose 180 H 12/06/24 16:36: POC Glucose 216 H 12/06/24 21:21: POC Glucose 150 H 12/07/24 06:40: POC Glucose 133 H Micro: Microbiology 11/23/24 11:25 Blood Culture (Wb) - Anticubital Right Blood Culture - Final No growth in 5 days. 11/25/24 16:50 Stool Stool Occult Blood (DEEDEE) - Final 11/22/24 14:35 Urine Catheter - Mitchell Urine Culture - Final Milvia albicans Mixed Gram Positive Organisms Physical Exam Const alert Constitutional Narrative: oriented to place and his age. Could not tell me the month or the year Speech is much more intelligible. Resp clear to auscultation bilaterally Resp Narrative: Lying flat in bed with no SOB. Not tachypneic. Cardio regular rate, regular rhythm and no gallops GI normal to inspection, nondistended, normoactive bowel sounds, soft to palpation and non-tender Extremity no calf tenderness General Extremity: Negative for edema Skin Rashes: no rashes Neuro Neuro Narrative: Fatigues very Easily. Still needing the ti lift to stand him. He is able to manage the WC with no assist. Psych cooperative Assessment & Plan Assessment/Plan (1) Debility: (2) Spinal cord tumor: (3) Status post laminectomy with spinal fusion: (4) Ischemic cerebrovascular accident (CVA): (5) Encephalopathy acute: (6) Facial droop: (7) Right sided weakness: (8) Aphasia: (9) Dysarthria: (10) Dysphagia: (11) Kevin-neglect of right side: (12) Urine retention: (13) UTI (urinary tract infection): QUALIFIERS: Urinary tract infection type: acute cystitis Hematuria presence: with hematuria Qualified Code(s): N30.01 - Acute cystitis with hematuria (14) Mitchell catheter in place: (15) Dehydration: (16) Diabetes mellitus, type 2: QUALIFIERS: Diabetes mellitus exterminator insulin use: without long-term use (17) HTN (hypertension): QUALIFIERS: Hypertension type: unspecified Qualified Code(s): I10 - Essential (primary) hypertension (18) High cholesterol: (19) Constipation: QUALIFIERS: Constipation type: unspecified constipation type Qualified Code(s): K59.00 - Constipation, unspecified (20) Cystitis: PLAN: UA on 12/07/24 has 10-25 WBC's and 1+ bacteria. PLAN: Plan 1. Continue therapy 2. Reinsert Mitchell catheter for urine retention greater than 300 cc. 3. Check a UA today 4. Discontinue the MiraLAX since he will not take it but continue senna 2 tabs twice daily 5. Change the Glucophage to short acting and give 1000 mg in the a.m. and 500 mg with supper 6. Has not required any oxycodone since we increased the Flexeril to scheduled twice daily and scheduled Tylenol 1 g every 8. He is also getting the arthritis compounded formula. Urine culture ordered. BActrim DS 1 BID started empirically for + UA. Charges/Coding Visit Charges Inpatient E&M: 44384 Subs Hosp L1
[2024-12-07] MEDS: Aspirin 81 MG TAB.CHEW PO (08:31)
[2024-12-07] MEDS: Multivitamins,Therapeutic Tablet 1 TABLET PO (08:31)
[2024-12-07] MEDS: Glucerna Shake 120 ML LIQUID PO ×2 (08:31→11:53)
[2024-12-07] MEDS: Pantoprazole Sodium 40 MG Tablet PO (08:32)
[2024-12-07] MEDS: Clopidogrel Bisulfate 75 MG Tablet PO (08:32)
[2024-12-07] MEDS: Menthol/Lanolin/Calamine/Znox 113 GM Tube 1 APPLIC TOPICAL ×2 (08:32→20:47)
[2024-12-07] MEDS: Senna/Docusate Sodium 1 Tablet 2 TABLET PO ×2 (09:19→20:36)
[2024-12-07] MEDS: metFORMIN HCl 1,000 MG Tablet 1000 MG PO (09:19)
[2024-12-07 09:33] LABS: Color, Urine Yellow (Yellow); Glucose, Dipstick Normal (Normal); Ketone-Dipstick Negative (Negative); Leukocyte Esterase-Dipstick 500 /ul (Negative); Nitrite-Dipstick Negative (Negative); Occult Blood-Urine 10 /ul (Negative); Protein-Dipstick 15 mg/dl (Negative); Urine Bilirubin Dipstick Negative (Negative); Urine Clarity Sl. Cloudy (Clear); Urine Urobilinogen Normal (Normal)
[2024-12-07 09:43] LABS: Bacteria 1+ /hpf (None Seen); Mucous, Urine 1+ /hpf (<or=2+); Red Blood Cells-Urine 0-5 SEEN /hpf (0-5); Squamous Epithelial Cells - UA 0-5 SEEN /hpf (0-5); White Blood Cells 25-50 SEEN /hpf (0-5)
[2024-12-07 11:53] LABS: Bedside Glucose 160 mg/dL (74-106)
[2024-12-07] MEDS: Insulin Lispro 100 UNIT/ML INSULN.PEN SC ×2 (11:54→17:09)
[2024-12-07] MEDS: oxyCODONE 5 MG Tablet PO (11:54)
[2024-12-07] MEDS: Smz/Tmp Ds Tablet 1 TABLET PO ×2 (13:34→17:09)
--- NOTE | 2024-12-07 16:06 | CASEMGMT ---
Social Work SW received email correspondence from requesting referral to [facility]. SW sent referral via [facility]. Will await outcome. Samantha Diaz HOME IMPROVEMENT CONTRACTOR NEUROPSYCHOLOGIST
[2024-12-07] MEDS: metFORMIN HCl 500 MG Tablet PO (17:09)
[2024-12-07] MEDS: Tamsulosin HCl 0.4 MG Capsule 0.8 MG PO (17:09)
[2024-12-07 17:10] LABS: Bedside Glucose 229 mg/dL (74-106)
[2024-12-07 18:00] VITALS: BP 111/58; PULSE 60; RESP 18; TEMP 36.4; O2SAT 98
[2024-12-07 20:15] VITALS: BP 104/58; PULSE 60; O2SAT 98
[2024-12-07] MEDS: Sotalol Hydrochloride 80 MG Tablet 120 MG PO (20:35)
[2024-12-07] MEDS: MELATONIN 3 MG TABLET PO (20:36)
[2024-12-07] MEDS: Losartan Potassium 25 MG Tablet PO (20:36)
[2024-12-07] MEDS: Atorvastatin Calcium 40 MG Tablet PO (20:36)
[2024-12-07] MEDS: Mirtazapine 15 MG Tablet PO (20:37)
[2024-12-07] MEDS: Petrolatum 33% Tube 1 APPLIC TOPICAL (20:46)
[2024-12-07] MEDS: Insulin Glargine-YFGN 100 UNIT/ML Pen 10 UNIT SC (20:48)
[2024-12-07 23:03] LABS: Bedside Glucose 177 mg/dL (74-106)
[2024-12-08] MEDS: Arthritis Pain Compound 60 CLICK TUBE TOPICAL ×3 (05:42→21:11)
[2024-12-08] MEDS: Acetaminophen 500 MG Tablet 1000 MG PO ×3 (05:42→21:11)
[2024-12-08] MEDS: Enoxaparin 40 MG/0.4 ML Syringe SC (05:42)
[2024-12-08] MEDS: cycloBENZAPRine HCl 5 MG TABLET PO ×2 (05:54→14:50)
[2024-12-08 05:56] VITALS: BP 110/62; PULSE 60; RESP 15; TEMP 36.6; O2SAT 95
[2024-12-08 06:43] LABS: Bedside Glucose 123 mg/dL (74-106)
[2024-12-08] MEDS: metFORMIN HCl 1,000 MG Tablet 1000 MG PO (08:05)
[2024-12-08] MEDS: Aspirin 81 MG TAB.CHEW PO (08:05)
[2024-12-08] MEDS: Clopidogrel Bisulfate 75 MG Tablet PO (08:06)
[2024-12-08] MEDS: Pantoprazole Sodium 40 MG Tablet PO (08:06)
[2024-12-08] MEDS: Multivitamins,Therapeutic Tablet 1 TABLET PO (08:06)
[2024-12-08] MEDS: Senna/Docusate Sodium 1 Tablet 2 TABLET PO ×2 (08:06→21:10)
[2024-12-08] MEDS: Smz/Tmp Ds Tablet 1 TABLET PO ×2 (08:06→18:05)
[2024-12-08] MEDS: Menthol/Lanolin/Calamine/Znox 113 GM Tube 1 APPLIC TOPICAL ×2 (08:09→21:16)
[2024-12-08] MEDS: oxyCODONE 5 MG Tablet PO (11:24)
--- NOTE | 2024-12-08 12:00 | CASEMGMT ---
Social Work requested to meet with this worker. SW scheduled and met with 1:1. SW provided active listening and answered questions within this worker's scope of practice. expressed disappointment with Gary Butler denying and difficulty understanding the high acuity of the pt. SW assured this worker will continue to refer to SNFs until there is an accepting provider. provided additional SNFs: [facility], [place]. SW to place referrals. appreciative of this worker's time and explanation. Time Spent: 30 minutes GERALDO Pérez
[2024-12-08 12:27] LABS: Bedside Glucose 132 mg/dL (74-106)
[2024-12-08 17:25] LABS: Bedside Glucose 169 mg/dL (74-106)
[2024-12-08 18:00] VITALS: BP 97/50; PULSE 60; RESP 18; TEMP 36.7; O2SAT 98
[2024-12-08] MEDS: Insulin Lispro 100 UNIT/ML INSULN.PEN SC (18:06)
[2024-12-08] MEDS: metFORMIN HCl 500 MG Tablet PO (18:06)
[2024-12-08] MEDS: Tamsulosin HCl 0.4 MG Capsule 0.8 MG PO (18:07)
[2024-12-08] MEDS: Magnesium Hydroxide 30 ML UDC PO (18:43)
[2024-12-08 21:10] VITALS: BP 112/50; PULSE 60; RESP 18; O2SAT 96
[2024-12-08] MEDS: MELATONIN 3 MG TABLET PO (21:11)
[2024-12-08] MEDS: Losartan Potassium 25 MG Tablet PO (21:11)
[2024-12-08] MEDS: Atorvastatin Calcium 40 MG Tablet PO (21:11)
[2024-12-08] MEDS: Mirtazapine 15 MG Tablet PO (21:11)
[2024-12-08] MEDS: Sotalol Hydrochloride 80 MG Tablet 120 MG PO (21:11)
[2024-12-08] MEDS: Petrolatum 33% Tube 1 APPLIC TOPICAL (21:16)
[2024-12-08] MEDS: Insulin Glargine-YFGN 100 UNIT/ML Pen 10 UNIT SC (21:19)
[2024-12-08 22:02] LABS: Bedside Glucose 154 mg/dL (74-106)
[2024-12-09] MEDS: cycloBENZAPRine HCl 5 MG TABLET PO ×2 (05:30→14:08)
[2024-12-09] MEDS: Enoxaparin 40 MG/0.4 ML Syringe SC (05:30)
[2024-12-09] MEDS: Arthritis Pain Compound 60 CLICK TUBE TOPICAL ×3 (05:30→20:57)
[2024-12-09] MEDS: Acetaminophen 500 MG Tablet 1000 MG PO ×3 (05:30→21:00)
[2024-12-09 05:36] VITALS: BP 134/70; PULSE 59; RESP 17; TEMP 36.6; O2SAT 96
[2024-12-09 07:13] LABS: Bedside Glucose 110 mg/dL (74-106)
[2024-12-09] MEDS: Smz/Tmp Ds Tablet 1 TABLET PO ×2 (08:23→16:59)
[2024-12-09] MEDS: metFORMIN HCl 1,000 MG Tablet 1000 MG PO (08:23)
[2024-12-09] MEDS: Clopidogrel Bisulfate 75 MG Tablet PO (08:24)
[2024-12-09] MEDS: Aspirin 81 MG TAB.CHEW PO (08:24)
[2024-12-09] MEDS: Multivitamins,Therapeutic Tablet 1 TABLET PO (08:24)
[2024-12-09] MEDS: Menthol/Lanolin/Calamine/Znox 113 GM Tube 1 APPLIC TOPICAL ×2 (08:24→21:03)
[2024-12-09] MEDS: Senna/Docusate Sodium 1 Tablet 2 TABLET PO ×2 (08:24→20:59)
[2024-12-09] MEDS: Pantoprazole Sodium 40 MG Tablet PO (08:24)
[2024-12-09 11:58] LABS: Bedside Glucose 173 mg/dL (74-106)
[2024-12-09] MEDS: Insulin Lispro 100 UNIT/ML INSULN.PEN SC (12:04)
[2024-12-09] MEDS: Tamsulosin HCl 0.4 MG Capsule 0.8 MG PO (16:59)
[2024-12-09] MEDS: metFORMIN HCl 500 MG Tablet PO (17:01)
[2024-12-09 17:09] LABS: Bedside Glucose 119 mg/dL (74-106)
[2024-12-09] MEDS: Magnesium Hydroxide 30 ML UDC PO (17:36)
[2024-12-09 17:54] VITALS: BP 116/66; PULSE 60; RESP 17; TEMP 36.8; O2SAT 95
[2024-12-09] MEDS: Mirtazapine 15 MG Tablet PO (20:57)
[2024-12-09] MEDS: Sotalol Hydrochloride 80 MG Tablet 120 MG PO (20:58)
[2024-12-09] MEDS: MELATONIN 3 MG TABLET PO (20:59)
[2024-12-09] MEDS: Atorvastatin Calcium 40 MG Tablet PO (20:59)
[2024-12-09] MEDS: Insulin Glargine-YFGN 100 UNIT/ML Pen 10 UNIT SC (21:00)
[2024-12-09 21:10] VITALS: BP 119/62; PULSE 60
[2024-12-09] MEDS: Losartan Potassium 25 MG Tablet PO (21:15)
[2024-12-09] MEDS: Petrolatum 33% Tube 1 APPLIC TOPICAL (21:35)
[2024-12-09 22:29] LABS: Bedside Glucose 148 mg/dL (74-106)
[2024-12-10] MEDS: Arthritis Pain Compound 60 CLICK TUBE TOPICAL ×3 (05:32→20:41)
[2024-12-10] MEDS: Acetaminophen 500 MG Tablet 1000 MG PO ×3 (05:33→20:42)
[2024-12-10] MEDS: Enoxaparin 40 MG/0.4 ML Syringe SC (05:33)
[2024-12-10] MEDS: cycloBENZAPRine HCl 5 MG TABLET PO ×2 (05:34→14:41)
[2024-12-10 05:39] VITALS: BP 109/62; PULSE 60; RESP 16; TEMP 36.8; O2SAT 94
[2024-12-10] MEDS: Bisacodyl 10 MG Suppository RC (05:51)
[2024-12-10 06:51] LABS: Bedside Glucose 109 mg/dL (74-106)
[2024-12-10] MEDS: Senna/Docusate Sodium 1 Tablet 2 TABLET PO ×2 (08:13→20:43)
[2024-12-10] MEDS: Aspirin 81 MG TAB.CHEW PO (08:14)
[2024-12-10] MEDS: metFORMIN HCl 1,000 MG Tablet 1000 MG PO (08:14)
[2024-12-10] MEDS: Menthol/Lanolin/Calamine/Znox 113 GM Tube 1 APPLIC TOPICAL ×2 (08:14→20:44)
[2024-12-10] MEDS: Smz/Tmp Ds Tablet 1 TABLET PO ×2 (08:14→16:32)
[2024-12-10] MEDS: Multivitamins,Therapeutic Tablet 1 TABLET PO (08:14)
[2024-12-10] MEDS: Pantoprazole Sodium 40 MG Tablet PO (08:14)
[2024-12-10] MEDS: Clopidogrel Bisulfate 75 MG Tablet PO (08:14)
[2024-12-10 10:51] VITALS: BMI 27.8
[2024-12-10 12:07] LABS: Bedside Glucose 144 mg/dL (74-106)
[2024-12-10] MEDS: metFORMIN HCl 500 MG Tablet PO (16:32)
[2024-12-10] MEDS: Tamsulosin HCl 0.4 MG Capsule 0.8 MG PO (16:32)
[2024-12-10 16:58] LABS: Bedside Glucose 112 mg/dL (74-106)
[2024-12-10 17:30] VITALS: BP 109/60; PULSE 59; RESP 18; TEMP 36.4; O2SAT 95
[2024-12-10 20:40] VITALS: BP 111/60; PULSE 59
[2024-12-10] MEDS: MELATONIN 3 MG TABLET PO (20:41)
[2024-12-10] MEDS: Mirtazapine 15 MG Tablet PO (20:41)
[2024-12-10] MEDS: Sotalol Hydrochloride 80 MG Tablet 120 MG PO (20:41)
[2024-12-10] MEDS: Losartan Potassium 25 MG Tablet PO (20:42)
[2024-12-10] MEDS: Petrolatum 33% Tube 1 APPLIC TOPICAL (20:44)
[2024-12-10] MEDS: Atorvastatin Calcium 40 MG Tablet PO (20:45)
[2024-12-10] MEDS: Insulin Glargine-YFGN 100 UNIT/ML Pen 10 UNIT SC (21:08)
[2024-12-10 21:29] LABS: Bedside Glucose 150 mg/dL (74-106)
[2024-12-11] MEDS: Enoxaparin 40 MG/0.4 ML Syringe SC (05:22)
[2024-12-11] MEDS: Arthritis Pain Compound 60 CLICK TUBE TOPICAL ×3 (05:22→21:15)
[2024-12-11] MEDS: Acetaminophen 500 MG Tablet 1000 MG PO ×3 (05:22→21:16)
[2024-12-11 05:24] VITALS: BP 107/63; PULSE 60; RESP 16; TEMP 36.4; O2SAT 93
[2024-12-11] MEDS: cycloBENZAPRine HCl 5 MG TABLET PO ×2 (05:41→13:49)
[2024-12-11 07:12] LABS: Bedside Glucose 94 mg/dL (74-106)
[2024-12-11] MEDS: Multivitamins,Therapeutic Tablet 1 TABLET PO (08:51)
[2024-12-11] MEDS: Smz/Tmp Ds Tablet 1 TABLET PO ×2 (08:51→17:12)
[2024-12-11] MEDS: Senna/Docusate Sodium 1 Tablet 2 TABLET PO ×2 (08:51→21:12)
[2024-12-11] MEDS: metFORMIN HCl 1,000 MG Tablet 1000 MG PO (08:51)
[2024-12-11] MEDS: Clopidogrel Bisulfate 75 MG Tablet PO (08:51)
[2024-12-11] MEDS: Aspirin 81 MG TAB.CHEW PO (08:51)
[2024-12-11] MEDS: Pantoprazole Sodium 40 MG Tablet PO (08:51)
[2024-12-11] MEDS: Menthol/Lanolin/Calamine/Znox 113 GM Tube 1 APPLIC TOPICAL ×2 (08:52→21:14)
--- NOTE | 2024-12-11 08:59 | PCM.PROGNOTE ---
Subjective Subjective Deondre was seen on team rounds today. His and a family friend were present in the room. Afebrile VSS -heart rate is consistently 60. Blood pressure is at goal. Denies lightheadedness. Maintaining appropriate oxygen saturation on to 95% Oral intake - FOOD has been eating 75 to 100% of his meals but refused breakfast this morning. FLUIDS fair to good Weight is down approximately 11 pounds since admission. The blood sugar record was reviewed. Blood sugars are under good control with no hypoglycemia. Discussed with nursing - no problems that need addressed Reviewed the THERAPY notes Medication list reviewed. Has not taken any oxycodone since Wednesday. Started on Flomax 0.8 mg daily on 12/07/2024. Tonight's dose will make the fifth dose of 0.8 mg. Urine culture grew only Milvia albicans. Denies cephalgia, lightheadedness, chest pain, cough, shortness of breath, palpitations, nausea/vomiting/abdominal pain, suprapubic pain and calf pain. He feels as though he is getting stronger. Sleeping well at night. Objective Data Objective Data Vital Signs: Vital Signs Temp Pulse Resp BP Pulse Ox O2 Del Method 97.6 F L 60 16 107/63 93 Room Air 12/11/24 05:24 12/11/24 05:24 12/11/24 05:24 12/11/24 05:24 12/11/24 05:24 12/11/24 05:24 Oxygen Delivery Method Room Air Weight: 199 lb 1.239 oz Body Mass Index (BMI) 27.8 Intake & Output: Intake and Output for Last 24 Hours 12/09/24 12/10/24 12/11/24 23:59 23:59 23:59 Intake Total 1900 / 1900 1390 / 1390 100 / 100 Output Total 2900 / 2900 1650 / 1650 675 / 675 Balance -1000 / -1000 -260 / -260 -575 / -575 Lab / Micro Data 12/05/24 08:40 12/05/24 08:40 Labs: Laboratory Results - last 24 hr 12/10/24 11:48: POC Glucose 144 H 12/10/24 16:29: POC Glucose 112 H 12/10/24 21:07: POC Glucose 150 H 12/11/24 06:52: POC Glucose 94 Micro: Microbiology 12/07/24 09:00 Urine Catheter - Catheter Urine Culture - Final Milvia albicans 11/23/24 11:25 Blood Culture (Wb) - Anticubital Right Blood Culture - Final No growth in 5 days. 11/25/24 16:50 Stool Stool Occult Blood (DEEDEE) - Final 11/22/24 14:35 Urine Catheter - Mitchell Urine Culture - Final Milvia albicans Mixed Gram Positive Organisms Physical Exam Const alert and no apparent distress Constitutional Narrative: Still has poor awareness of his deficits. General Appearance: cooperative HEENT HEENT Narrative: No thrush Mouth: dry mucous membranes Resp normal respiratory effort and clear to auscultation bilaterally Resp Narrative: Lying flat on the mat in the therapy room with no SOB. Effort and Inspection: Negative for tachypneic Cardio regular rate, regular rhythm and no gallops Cardio Narrative: No ectopy GI normal to inspection, nondistended, normoactive bowel sounds, soft to palpation and non-tender GI Narrative: No guarding with palpation Extremity no calf tenderness General Extremity: Negative for edema Skin Rashes: no rashes Neuro Neuro Narrative: Not able to sit at the edge of the mat in the therapy room without falling backwards into the wedge cushion behind him Unable to maintain balance while seated on the toilet if he moves at all. Still total assist for toilet transfer. Using the sliding board at Mod A. now. Psych cooperative Psych Narrative: motivated to do therapy and get home. Good intake now and is sleeping well at night. Affect is not as flat or negative. Appearance: appropriate Attitude: No agitated Mood & Affect: Negative for anxious Assessment & Plan Assessment/Plan (1) Debility: (2) Spinal cord tumor: (3) Status post laminectomy with spinal fusion: (4) Ischemic cerebrovascular accident (CVA): (5) Encephalopathy acute: (6) Facial droop: (7) Right sided weakness: (8) Aphasia: (9) Dysarthria: (10) Dysphagia: (11) Kevin-neglect of right side: (12) Urine retention: (13) UTI (urinary tract infection): QUALIFIERS: Urinary tract infection type: acute cystitis Hematuria presence: with hematuria Qualified Code(s): N30.01 - Acute cystitis with hematuria (14) Mitchell catheter in place: (15) Dehydration: (16) Diabetes mellitus, type 2: QUALIFIERS: Diabetes mellitus terminal block assembler insulin use: without prison use (17) HTN (hypertension): QUALIFIERS: Hypertension type: unspecified Qualified Code(s): I10 - Essential (primary) hypertension (18) High cholesterol: (19) Constipation: QUALIFIERS: Constipation type: unspecified constipation type Qualified Code(s): K59.00 - Constipation, unspecified PLAN: Plan 1. Continue therapy 2. Change the blood sugars to twice daily 3. Check a BMP, CBC without differential, magnesium and phosphorus in the a.m. 4. Continue to increase the time he spends sitting up in the WC daily to help strengthen the core. 5. Plan is for SNF at [place] - accepted at [facility]. 6. Plan voiding trial on Wednesday a.m. Making low steady progress with therapy. Mentation is much better. Plan is for home once he has more therapy and is able to assist more in his care.
--- NOTE | 2024-12-11 09:26 | CASEMGMT ---
Social Work SW exchanged several email correspondence with . requesting referrals to [facility], [facility], [facility], and [facility]. SW educated to lateral transfer to IRUs and Medicare is discharging from an IRU, thus this worker can place referrals to the SNFs: [facility] and [facility]. expressed understanding. Referrals sent via [facility]. Samantha Diaz STONE DERRICKMAN AND RIGGER CONTINUOUS IMPROVEMENT FACILITATOR
--- NOTE | 2024-12-11 13:04 | CASEMGMT ---
Social Work IDT met with patient, and dtr for Team meeting. Discussed patient's progress in PT/OT/ST/SN. Educated to Medicare benefit with DC 12/15. Updated that [facility] can accept. SW left VM with [facility]. and dtr remaining after Team for therapy training. and dtr agree to transfer to [facility]. SW to secure for DC. SW to schedule transport and complete 7000. SW will continue to assist with DC planning. Samantha Diaz WELT SEWER WINDOWS SERVER SUPPORT TECHNICIAN
[2024-12-11 17:03] LABS: Bedside Glucose 111 mg/dL (74-106)
[2024-12-11] MEDS: Tamsulosin HCl 0.4 MG Capsule 0.8 MG PO (17:12)
[2024-12-11] MEDS: metFORMIN HCl 500 MG Tablet PO (17:12)
[2024-12-11 18:00] VITALS: BP 98/53; PULSE 59; RESP 16; TEMP 36.6; O2SAT 94
[2024-12-11] MEDS: Insulin Glargine-YFGN 100 UNIT/ML Pen 10 UNIT SC (21:13)
[2024-12-11] MEDS: Losartan Potassium 25 MG Tablet PO (21:14)
[2024-12-11] MEDS: MELATONIN 3 MG TABLET PO (21:15)
[2024-12-11] MEDS: Mirtazapine 15 MG Tablet PO (21:16)
[2024-12-11] MEDS: Sotalol Hydrochloride 80 MG Tablet 120 MG PO (21:17)
[2024-12-11] MEDS: Petrolatum 33% Tube 1 APPLIC TOPICAL (21:18)
[2024-12-11] MEDS: Atorvastatin Calcium 40 MG Tablet PO (21:18)
[2024-12-11 21:28] VITALS: BP 104/48; PULSE 62
[2024-12-11 21:39] LABS: Bedside Glucose 180 mg/dL (74-106)
[2024-12-12] MEDS: Arthritis Pain Compound 60 CLICK TUBE TOPICAL ×3 (05:15→22:15)
[2024-12-12] MEDS: Enoxaparin 40 MG/0.4 ML Syringe SC (05:15)
[2024-12-12] MEDS: Acetaminophen 500 MG Tablet 1000 MG PO ×3 (05:15→22:15)
[2024-12-12] MEDS: cycloBENZAPRine HCl 5 MG TABLET PO ×2 (05:15→14:31)
[2024-12-12 06:00] VITALS: BP 103/56; PULSE 60; RESP 16; TEMP 36.6; O2SAT 97
[2024-12-12 06:01] LABS: Absolute Neutrophil Count 3.3 X10^3/uL (2.0-7.7); Basophil# 0.04 X10^3/uL; Basophil% 0.7 % (0-1); Eosinophil# 0.27 X10^3/uL; Eosinophils% 4.6 % (0-5); Hematocrit 35.7 % (40-54); Hemoglobin 11.4 g/dL (13.0-16.5); Lymphocyte % 27.2 % (19-41); Mean Corp Hgb Conc 31.9 g/dL (32-36); Mean Corpuscular Hgb 28.4 pg (27.0-32.0); Mean Corpuscular Volume 88.8 fL (80-94); Mean Platelet Vol. 9.4 fl (6.2-12.0); Monocyte# 0.68 X10^3/uL; Monocyte% 11.6 % (0-10); NRBC Flagged by Analyzer 0 % (0-5); Neutrophil # 3.26 X10^3/uL (2.7-7.7); Neutrophil % 55.4 % (47-70); Platelet Count 210 K/mm3 (150-450); RBC Distribution Width CV 13.5 % (11.6-14.6); RBC Distribution Width SD 43.4 fl (35.1-43.9); Red Blood Count 4.02 M/mm3 (4.6-6.2); White Blood Count 5.9 K/mm3 (4.4-11.0)
[2024-12-12 06:31] LABS: Anion Gap 10 (5-15); BUN 19 mg/dL (7-18); BUN/Creat Ratio 22.6 RATIO (10-20); Calcium,Total 9.2 mg/dL (8.5-10.1); Chloride 105 mmol/L (98-107); Creatinine, Serum 0.84 mg/dL (0.70-1.30); EST Glomerular Filtration Rate 96 mL/min (>60); Est Glom Filt Rate - Afr Amer 116 mL/min (>60); Estimated Creatinine Clearance 87.15 ml/min; Glucose 115 mg/dL (74-106); Magnesium 1.8 mg/dL (1.6-2.6); Phosphorus 4.6 mg/dL (2.5-4.9); Potassium 4.3 mmol/L (3.5-5.1); Sodium Level 140 mmol/L (136-145)
[2024-12-12 06:49] LABS: Bedside Glucose 107 mg/dL (74-106)
[2024-12-12] MEDS: Multivitamins,Therapeutic Tablet 1 TABLET PO (07:38)
[2024-12-12] MEDS: Clopidogrel Bisulfate 75 MG Tablet PO (07:38)
[2024-12-12] MEDS: Senna/Docusate Sodium 1 Tablet 2 TABLET PO ×2 (07:39→22:14)
[2024-12-12] MEDS: Smz/Tmp Ds Tablet 1 TABLET PO (07:39)
[2024-12-12] MEDS: Menthol/Lanolin/Calamine/Znox 113 GM Tube 1 APPLIC TOPICAL ×2 (07:39→22:15)
[2024-12-12] MEDS: metFORMIN HCl 1,000 MG Tablet 1000 MG PO (07:39)
[2024-12-12] MEDS: Aspirin 81 MG TAB.CHEW PO (07:39)
[2024-12-12] MEDS: Pantoprazole Sodium 40 MG Tablet PO (07:39)
--- NOTE | 2024-12-12 08:44 | CASEMGMT ---
Social Work SW received email from requesting this worker follow up with [facility] on acceptance/bed availability, and to refer to [facility], as she is second guessing [facility]. SW notified [place]. Sent follow up to [facility]. Referred to [facility], all via [facility]. Will continue to follow. Samantha Diaz CREDIT RISK ANALYTICS MANAGER IOS ARCHITECT
--- NOTE | 2024-12-12 14:13 | PCM.PROGNOTE ---
Subjective Subjective Afebrile VSS -blood pressure is within goal. Heart rate is always 60. Maintaining appropriate oxygen saturation on RA Oral intake - FOOD good. is bringing food from home and leaving it in his room. FLUIDS good The blood sugar record was reviewed. Blood sugars are adequately controlled. The at bedtime is a little high but his feeds him snacks and are not necessarily reduced carb. Discussed with nursing - no problems that need addressed Reviewed the THERAPY notes Medication list reviewed. All lab from today was personally reviewed. The white blood cell count is normal at 5.9. Differential is unremarkable. Hemoglobin is 11.4 and stable. Platelets are within normal limits. Sodium is 140 and the potassium is stable at 4.3. Serum bicarb is normal at 25. The BUN is 19 with a creatinine of 0.84. This is up from 0.55 on 11/27/24. Losartan was added to the drug regimen on 12/05/24 for proteinuria. Denies headache, lightheadedness, vertigo, chest pain, shortness of breath, cough, nausea/vomiting/abdominal pain/constipation, suprapubic pain and calf pain. Objective Data Objective Data Vital Signs: Vital Signs Temp Pulse Resp BP Pulse Ox O2 Del Method 97.8 F 60 16 103/56 L 97 Room Air 12/12/24 06:00 12/12/24 06:00 12/12/24 06:00 12/12/24 06:00 12/12/24 06:00 12/12/24 06:00 Oxygen Delivery Method Room Air Weight: 199 lb 1.239 oz Body Mass Index (BMI) 27.8 Intake & Output: Intake and Output for Last 24 Hours 12/10/24 12/11/24 12/12/24 23:59 23:59 23:59 Intake Total 1390 / 1390 1620 / 1620 1065 / 1065 Output Total 1650 / 1650 1974 / 1974 550 / 550 Balance -260 / -260 -355 / -355 515 / 515 Lab / Micro Data 12/12/24 05:18 12/12/24 05:18 Labs: Laboratory Results - last 24 hr 12/11/24 16:23: POC Glucose 111 H 12/11/24 21:10: POC Glucose 180 H 12/12/24 05:18: WBC 5.9, RBC 4.02 L, Hgb 11.4 L, Hct 35.7 L, MCV 88.8, MCH 28.4, MCHC 31.9 L, RDW Std Deviation 43.4, RDW Coeff of Magdalena 13.5, Plt Count 210, MPV 9.4, Immature Gran % (Auto) 0.500, Neut % (Auto) 55.4, Lymph % (Auto) 27.2, Holt % (Auto) 11.6 H, Eos % (Auto) 4.6, Baso % (Auto) 0.7, Absolute Neuts (auto) 3.3, Absolute Lymphs (auto) 1.60, Nucleated RBC % 0, Sodium 140, Potassium 4.3, Chloride 105, Carbon Dioxide 25.0, Anion Gap 10, BUN 19 H, Creatinine 0.84, Estim Creat Clear Calc 87.15, Est GFR (MDRD) Af Amer 116, Est GFR (MDRD) Non-Af 96, BUN/Creatinine Ratio 22.6 H, Glucose 115 H, Calcium 9.2, Phosphorus 4.6, Magnesium 1.8 12/12/24 06:26: POC Glucose 107 H Micro: Microbiology 12/07/24 09:00 Urine Catheter - Catheter Urine Culture - Final Milvia albicans 11/23/24 11:25 Blood Culture (Wb) - Anticubital Right Blood Culture - Final No growth in 5 days. 11/25/24 16:50 Stool Stool Occult Blood (DEEDEE) - Final 11/22/24 14:35 Urine Catheter - Mitchell Urine Culture - Final Milvia albicans Mixed Gram Positive Organisms Physical Exam Const alert and no apparent distress Constitutional Narrative: Still has poor awareness of his deficits. General Appearance: cooperative HEENT HEENT Narrative: No thrush Mouth: dry mucous membranes Neck supple Resp normal respiratory effort and clear to auscultation bilaterally Resp Narrative: Lying flat on the mat in the therapy room with no SOB. Effort and Inspection: Negative for tachypneic Cardio regular rate, regular rhythm and no gallops Cardio Narrative: No ectopy GI normal to inspection, nondistended, normoactive bowel sounds, soft to palpation and non-tender GI Narrative: No guarding with palpation Extremity no calf tenderness General Extremity: Negative for edema Skin Skin Narrative: the posterior cervical incision is intact with no dehiscence and no erythema or DC. He still complains of pain, predominately in the R upper trapezius area but, the pain is controlled with the medications he is getting. Rashes: no rashes Neuro Neuro Narrative: Facial droop is much improved. Better strength on the R side. Speech is much easier to understand with a lot less slurring. Thought process and memory are improving Psych affect normal Psych Narrative: calm and making good eye contact. Making jokes and is more interactive with staff. Appearance: appropriate Assessment & Plan Assessment/Plan (1) Debility: (2) Spinal cord tumor: (3) Status post laminectomy with spinal fusion: (4) Ischemic cerebrovascular accident (CVA): (5) Encephalopathy acute: (6) Facial droop: (7) Right sided weakness: (8) Aphasia: (9) Dysarthria: (10) Dysphagia: (11) Kevin-neglect of right side: (12) Urine retention: (13) UTI (urinary tract infection): QUALIFIERS: Urinary tract infection type: acute cystitis Hematuria presence: with hematuria Qualified Code(s): N30.01 - Acute cystitis with hematuria (14) Mitchell catheter in place: (15) Dehydration: (16) Diabetes mellitus, type 2: QUALIFIERS: Diabetes mellitus emt intermediate insulin use: without mcc use (17) HTN (hypertension): QUALIFIERS: Hypertension type: unspecified Qualified Code(s): I10 - Essential (primary) hypertension (18) High cholesterol: (19) Constipation: QUALIFIERS: Constipation type: unspecified constipation type Qualified Code(s): K59.00 - Constipation, unspecified PLAN: Plan 1. Continue therapy 2. Discontinue Bactrim-urine culture grew only Milvia albicans. 3. Voiding trial in the a.m. 4. Hold Losartan and recheck a BMP on Wednesday. Not on a diuretic but, outputs have been exceeding input at times. this may be the reason for the bump in the BUN/CREAT. Charges/Coding Visit Charges Inpatient E&M: 74017 Subs Hosp L1
[2024-12-12] MEDS: Tamsulosin HCl 0.4 MG Capsule 0.8 MG PO (16:41)
[2024-12-12] MEDS: metFORMIN HCl 500 MG Tablet PO (16:41)
[2024-12-12 16:56] LABS: Bedside Glucose 105 mg/dL (74-106)
[2024-12-12 17:25] VITALS: BP 105/57; PULSE 60; RESP 14; TEMP 36.4; O2SAT 98
[2024-12-12] MEDS: Sotalol Hydrochloride 80 MG Tablet 120 MG PO (22:14)
[2024-12-12] MEDS: Mirtazapine 15 MG Tablet PO (22:14)
[2024-12-12] MEDS: Atorvastatin Calcium 40 MG Tablet PO (22:14)
[2024-12-12] MEDS: MELATONIN 3 MG TABLET PO (22:15)
[2024-12-12] MEDS: Petrolatum 33% Tube 1 APPLIC TOPICAL (22:15)
[2024-12-12 23:35] LABS: Bedside Glucose 112 mg/dL (74-106)
--- NOTE | 2024-12-13 06:01 | NURSING ---
[place] removed per order
[2024-12-13 06:02] VITALS: BP 116/72; PULSE 60; RESP 16; TEMP 36.6; O2SAT 95
[2024-12-13] MEDS: Arthritis Pain Compound 60 CLICK TUBE TOPICAL ×3 (06:05→20:19)
[2024-12-13] MEDS: cycloBENZAPRine HCl 5 MG TABLET PO ×2 (06:05→14:56)
[2024-12-13] MEDS: Enoxaparin 40 MG/0.4 ML Syringe SC (06:05)
[2024-12-13] MEDS: Acetaminophen 500 MG Tablet 1000 MG PO ×3 (06:05→20:25)
[2024-12-13 06:46] LABS: Bedside Glucose 105 mg/dL (74-106)
[2024-12-13] MEDS: Pantoprazole Sodium 40 MG Tablet PO (08:11)
[2024-12-13] MEDS: metFORMIN HCl 1,000 MG Tablet 1000 MG PO ×2 (08:11→17:07)
[2024-12-13] MEDS: Multivitamins,Therapeutic Tablet 1 TABLET PO (08:11)
[2024-12-13] MEDS: Aspirin 81 MG TAB.CHEW PO (08:11)
[2024-12-13] MEDS: Senna/Docusate Sodium 1 Tablet 2 TABLET PO ×2 (08:11→20:24)
[2024-12-13] MEDS: Clopidogrel Bisulfate 75 MG Tablet PO (08:11)
[2024-12-13] MEDS: Menthol/Lanolin/Calamine/Znox 113 GM Tube 1 APPLIC TOPICAL ×2 (08:12→20:21)
[2024-12-13 10:00] VITALS: BMI 27.1
--- NOTE | 2024-12-13 12:57 | CASEMGMT ---
Addendum entered by Samantha Diaz 12/14/24 15:01: 7000 completed. DC paperwork sent to [facility] via [facility]. Original Note: Social Work [facility]. The toured [facility] and [facility] and prefers [facility]. [facility] does have a bed open and can accept pt on 12/15. 7000 started. Cot transport scheduled through [facility] for 1300. Plan: DC 12/15 to [facility], skilled Samantha SPENCERW
--- NOTE | 2024-12-13 13:17 | NURSING ---
Received call for Rosemarie form Dr Nunes office. Ok to remove sutures/asher 2 weeks post op and Order received for Pelvic X-rays at that time.
[2024-12-13 16:30] LABS: Bedside Glucose 88 mg/dL (74-106)
[2024-12-13] MEDS: Tamsulosin HCl 0.4 MG Capsule 0.8 MG PO (17:07)
[2024-12-13] MEDS: metFORMIN HCl 500 MG Tablet PO (17:09)
[2024-12-13 18:00] VITALS: BP 111/60; PULSE 57; RESP 16; TEMP 36.5; O2SAT 98
[2024-12-13] MEDS: Mirtazapine 15 MG Tablet PO (20:18)
[2024-12-13] MEDS: Sotalol Hydrochloride 80 MG Tablet 120 MG PO (20:20)
[2024-12-13] MEDS: Petrolatum 33% Tube 1 APPLIC TOPICAL (20:22)
[2024-12-13] MEDS: MELATONIN 3 MG TABLET PO (20:24)
[2024-12-13] MEDS: Atorvastatin Calcium 40 MG Tablet PO (20:24)
[2024-12-13 21:55] VITALS: PULSE 64
[2024-12-14] MEDS: Enoxaparin 40 MG/0.4 ML Syringe SC (04:59)
[2024-12-14] MEDS: Arthritis Pain Compound 60 CLICK TUBE TOPICAL ×3 (05:00→20:37)
[2024-12-14] MEDS: Acetaminophen 500 MG Tablet 1000 MG PO ×3 (05:00→20:35)
[2024-12-14 06:00] VITALS: BP 108/48; PULSE 60; RESP 17; TEMP 36.6; O2SAT 98
[2024-12-14] MEDS: cycloBENZAPRine HCl 5 MG TABLET PO ×2 (06:11→14:21)
[2024-12-14 06:33] LABS: Bedside Glucose 115 mg/dL (74-106)
[2024-12-14] MEDS: Pantoprazole Sodium 40 MG Tablet PO (09:19)
[2024-12-14] MEDS: Clopidogrel Bisulfate 75 MG Tablet PO (09:19)
[2024-12-14] MEDS: Multivitamins,Therapeutic Tablet 1 TABLET PO (09:19)
[2024-12-14] MEDS: Menthol/Lanolin/Calamine/Znox 113 GM Tube 1 APPLIC TOPICAL ×2 (09:19→20:42)
[2024-12-14] MEDS: Aspirin 81 MG TAB.CHEW PO (09:19)
[2024-12-14] MEDS: Senna/Docusate Sodium 1 Tablet 2 TABLET PO ×2 (09:19→20:36)
--- NOTE | 2024-12-14 10:35 | PCM.PROGNOTE ---
Subjective Subjective Afebrile VSS -blood pressure is within goal. Cozaar 25 mg was discontinued 2 days ago for a blood pressure of 98/53 and a bump in his creatinine from 0.65-0.84. Maintaining appropriate oxygen saturation on RA Oral intake - FOOD varies from 50 to 100%. FLUIDS fair to good Discussed with nursing - no problems that need addressed. He has had 3 postvoid residuals since the Mitchell catheter was discontinued yesterday morning and the highest was 168. Reviewed the THERAPY notes He is now able to get up onto hands and knees on the therapy mat. Medication list reviewed. his only complaint is neck pain......but, tells me that the medications have it controlled. He has also been getting massage from the therapists Objective Data Objective Data Vital Signs: Vital Signs Temp Pulse Resp BP Pulse Ox O2 Del Method 97.8 F 60 17 108/48 L 98 CPAP 12/14/24 06:00 12/14/24 06:00 12/14/24 06:00 12/14/24 06:00 12/14/24 06:00 12/14/24 06:00 Oxygen Delivery Method CPAP Weight: 193 lb 12.581 oz Body Mass Index (BMI) 27.1 Intake & Output: Intake and Output for Last 24 Hours 12/12/24 12/13/24 12/14/24 23:59 23:59 23:59 Intake Total 1465 / 1465 1160 / 1160 550 / 550 Output Total 2300 / 2300 2075 / 2075 1000 / 1000 Balance -835 / -835 -915 / -915 -450 / -450 Lab / Micro Data 12/12/24 05:18 12/12/24 05:18 Labs: Laboratory Results - last 24 hr 12/13/24 16:08: POC Glucose 88 12/14/24 05:29: POC Glucose 115 H Micro: Microbiology 12/07/24 09:00 Urine Catheter - Catheter Urine Culture - Final Milvia albicans 11/23/24 11:25 Blood Culture (Wb) - Anticubital Right Blood Culture - Final No growth in 5 days. 11/25/24 16:50 Stool Stool Occult Blood (DEEDEE) - Final 11/22/24 14:35 Urine Catheter - Mitchell Urine Culture - Final Milvia albicans Mixed Gram Positive Organisms Physical Exam Const alert and no apparent distress General Appearance: cooperative Neck supple Resp normal respiratory effort and clear to auscultation bilaterally Resp Narrative: Lying flat on the mat in the therapy room with no SOB. Effort and Inspection: Negative for tachypneic Cardio regular rate, regular rhythm and no gallops Cardio Narrative: No ectopy GI normal to inspection, nondistended, normoactive bowel sounds, soft to palpation and non-tender GI Narrative: No guarding with palpation Extremity no calf tenderness General Extremity: Negative for edema Skin Skin Narrative: the posterior cervical incision is intact with no dehiscence and no erythema or DC. He still complains of pain, predominately in the R upper trapezius area but, the pain is controlled with the medications he is getting. Rashes: no rashes Neuro Neuro Narrative: Facial droop is much improved. Better strength on the R side. Speech is much easier to understand with a lot less slurring. Thought process and memory are improving. Was able to lift the RLE off the bed today for me and hold it there for a count of 5. Still much weaker than the LLE. Weak dorsiflexion of the R foot. Pretty good plantar flexion. Good plantar and dorsiflexion of the left foot. No ataxia. Facial droop is not noticeable today and his speech is much better. Can hold both UE's up for a count of 10. Psych affect normal Psych Narrative: calm and making good eye contact. Making jokes and is more interactive with staff. Appearance: appropriate Assessment & Plan Assessment/Plan (1) Debility: (2) Spinal cord tumor: (3) Status post laminectomy with spinal fusion: (4) Ischemic cerebrovascular accident (CVA): (5) Encephalopathy acute: (6) Facial droop: (7) Right sided weakness: (8) Aphasia: (9) Dysarthria: (10) Dysphagia: (11) Kevin-neglect of right side: (12) Urine retention: (13) UTI (urinary tract infection): QUALIFIERS: Urinary tract infection type: acute cystitis Hematuria presence: with hematuria Qualified Code(s): N30.01 - Acute cystitis with hematuria (14) Mitchell catheter in place: (15) Dehydration: (16) Diabetes mellitus, type 2: QUALIFIERS: Diabetes mellitus alf insulin use: without alf use (17) HTN (hypertension): QUALIFIERS: Hypertension type: unspecified Qualified Code(s): I10 - Essential (primary) hypertension (18) High cholesterol: (19) Constipation: QUALIFIERS: Constipation type: unspecified constipation type Qualified Code(s): K59.00 - Constipation, unspecified PLAN: Plan 1. Continue therapy today. Plan transfer to [facility] tomorrow for additional therapy prior to hopefully returning home. 3. BMP ordered for the a.m. 3. Discontinue glargine. Decrease the a.m. Glucophage to 750 mg. Charges/Coding Visit Charges Inpatient E&M: 49696 Subs Hosp L1
--- NOTE | 2024-12-14 13:59 | PCM.TXEXTCAR ---
Diet Diet Order/Speech Therapy: 12/01/24 12:37 Diet: Cardiac: Calorie-Controlled Food consistency:: Regular Liquid Consistency:: Regular/Thin Diet Comments: alternate sip/bite, small bites/sips, slow rate DIET POP ONLY How many daily calories?: 1800 calorie carb consistent diet, 1800 calories, low salt and low fat. Routine Orders/Code Status Enema Type: Fleetz Enema Frequency: Daily PRN Suppository Type: Dulcolax 10mg Suppository Frequency: Daily PRN Change Mitchell Catheter: Mitchell was removed on 12/13/24 and post void residuals are good. Code Status: DNRCC-A (No intubation) DC O2, CPAP, BIPAP needs Home O2 Discharge instructions: No Wound(s) rt valdovinos: Wound Type: Abrasion sacrum: Wound Type: Pressure Injury lt heel: Wound Type: Pressure Injury left lateral knee: Wound Type: Abrasion posterior neck: Wound Type: Surgical Incision Right heel: Wound Type: Pressure Injury left elbow: Wound Type: Skin Tear Therapies Weight Bearing: Full weight bearing Extremity Affected:: Bilateral Lower Physical Therapy: Eval and Treat Occupational Therapy: Eval and Treat Speech Therapy: Eval and Treat Problem/Diagnosis (1) Debility: Status: Acute Code(s): R53.81 - Other malaise (2) Spinal cord tumor: Status: Inactive Code(s): D49.7 - Neoplasm of unspecified behavior of endocrine glands and other parts of nervous system (3) Status post laminectomy with spinal fusion: Status: Inactive Code(s): Z98.1 - Arthrodesis status (4) Ischemic cerebrovascular accident (CVA): Status: Suspected Code(s): I63.9 - Cerebral infarction, unspecified Plan: CT scan was negative for CVA. No MRI done due to presence of PM. Neurologic deficits consistent with stroke at admission to acute rehab. Has been maqnaged as an acute ischemic stroke. (5) Encephalopathy acute: Status: Acute Code(s): G93.40 - Encephalopathy, unspecified Plan: Much improved during his time on rehab. (6) Facial droop: Status: Acute Code(s): R29.810 - Facial weakness Plan: Nearly resolved at the time of DC from rehab. (7) Right sided weakness: Status: Acute Code(s): R53.1 - Weakness Comment: Acute on chronic weakness. 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 (8) Aphasia: Status: Acute Code(s): R47.01 - Aphasia (9) Dysarthria: Status: Acute Code(s): R47.1 - Dysarthria and anarthria (10) Dysphagia: Status: Acute Code(s): R13.10 - Dysphagia, unspecified Plan: Much improved at the time of DC and he is on regular textures and thin liquids. (11) Kevin-neglect of right side: Status: Acute Code(s): R41.4 - Neurologic neglect syndrome (12) Urine retention: Status: Resolved Code(s): R33.9 - Retention of urine, unspecified Plan: Mitchell was discontinued on 12/13/24 and PVR's have been all less than 200. (13) UTI (urinary tract infection): Status: Ruled-out Code(s): N39.0 - Urinary tract infection, site not specified Plan: He had some WBC's in the urine but, the first culture grew only Staph epidermidis and a second urine culture grew only Milvia albicans. Comment: Present at admission to rehab (14) Mitchell catheter in place: Status: Resolved Code(s): Z97.8 - Presence of other specified devices (15) Dehydration: Status: Resolved Code(s): E86.0 - Dehydration (16) Diabetes mellitus, type 2: Status: Acute Code(s): E11.9 - Type 2 diabetes mellitus without complications (17) HTN (hypertension): Status: Chronic Code(s): I10 - Essential (primary) hypertension (18) High cholesterol: Status: Chronic Code(s): E78.00 - Pure hypercholesterolemia, unspecified (19) Constipation: Status: Resolved Code(s): K59.00 - Constipation, unspecified (20) Ileus: Status: Resolved Code(s): K56.7 - Ileus, unspecified Plan: Present at admission to rehab. Resolved. Plan 1. [facility] prior to hopefully returning home. Allergies/Procedures Done in Hospital Allergies cefepime (From Maxipime) Allergy (Mild, Verified 11/27/24 14:41) Rash Penicillins Allergy (Verified 11/27/24 14:41) Rash lisinopril Adverse Reaction (Verified 11/27/24 14:41) Cough Type of Care/Length of Stay Estimated LOS: Convalescent Care Less Than 30 days Type of Care Needed: Skilled Rehab Potential: Fair Prognosis: Fair Additional Orders/Day of Discharge Additional Orders: Has poor awareness of his disabilities and poor safety awareness. We have been using bed and chair alarms. H&P will serve as current which was dated: 11/23/24 Day of Discharge: 12/15/24 Dietary and Speech Recommendations Dietitian Recommendations/Changes: Continue 1800CCD diet to manage blood sugars. Will discontinue 120mL Glucerna TID with medpass d/t to adequate PO intakes at meals. Follow Up Care Please follow up with your Primary Care Physician in: Following DC from [facility]. Please Follow Up With: neurology When: Spine surgeon. Discharge Plan Admission Admit Date/Time: 11/22/24 11:40 Primary Reason for Your Visit: POST STROKE DEBIITY Attending Provider: Donna Walton Primary Care Provider: Merna Israel Consulting Providers: Mukesh Mcfarlane Discharge Orders/Prescriptions Prescriptions: New acetaminophen 500 mg Tablet 1,000 mg PO Q8 Qty: 1 0RF bisacodyl 10 mg Suppository 10 mg NC X1 PRN (Reason: Constipation) Qty: 1 0RF cyclobenzaprine 5 mg Tablet 5 mg PO 0700,1500 Qty: 1 0RF melatonin 3 mg Tablet 3 mg PO QHS Qty: 1 0RF atorvastatin 40 mg Tablet 40 mg PO QHS Qty: 1 0RF metformin 500 mg Tablet 500 mg PO SUPPER Qty: 1 0RF metformin 500 mg Tablet 750 mg PO BREAKFAST Qty: 1 0RF sennosides-docusate sodium [Stimulant Laxative Plus] 8.6-50 mg Tablet 2 tab PO BID Qty: 1 0RF pantoprazole 40 mg Tablet,Delayed Release (Dr/Ec) 40 mg PO DAILY Qty: 1 0RF mirtazapine 15 mg Tablet 15 mg PO 2000 Qty: 1 0RF Biotene Dry Mouth Oral Rinse Mouthwash 15 ml mucous membrane 5X/DAY PRN (Reason: Dry Mouth) Qty: 15 0RF tamsulosin 0.4 mg Capsule 0.8 mg PO DAILY@1730 Qty: 1 0RF Continued sotalol 120 mg tablet 120 mg PO QHS aspirin [Adult Aspirin Regimen] 81 mg tablet,delayed release (DR/EC) 81 mg PO DAILY clopidogrel 75 mg tablet 75 mg PO DAILY enoxaparin [Lovenox] 40 mg/0.4 mL syringe 40 mg subcut DAILY multivitamin [Daily Multi-Vitamin] Tablet 1 tab PO DAILY oxycodone 5 mg tablet 5 mg PO Q6H PRN (Reason: pain) 7 Days Qty: 5 0RF Rx Instructions: hAS NOT TAKEN SINCE 12/08/24 Discontinued losartan 100 mg tablet 100 mg PO DAILY hydrochlorothiazide 25 mg tablet 12.5 mg PO DAILY acetaminophen 500 mg tablet 1,000 mg PO Q8 PRN (Reason: pain) cyclobenzaprine 10 mg tablet 10 mg PO TID fluconazole 200 mg tablet 200 mg PO DAILY famotidine [Pepcid] 20 mg tablet 20 mg PO DAILY sulfamethoxazole-trimethoprim 800-160 mg tablet 1 tab PO Q12H Patient Comments: [NO ORIGINAL SIG] metformin 750 mg tablet extended release 24 hr 750 mg PO DAILY rosuvastatin 5 mg tablet 5 mg PO QHS glipizide 10 mg tablet extended release 24hr 10 mg PO BID Qty: 180 1RF Jardiance 25 mg tablet 25 mg PO DAILY Qty: 90 1RF Mounjaro 5 mg/0.5 mL pen injector 5 mg subcut QWEEK Qty: 2 5RF Referrals / Follow Up: Merna Israel MD [Primary Care Provider] - Disposition Disposition (needs filled in before D/C Order can be placed): [facility] Facility (10) Dysphagia Qualifiers: Dysphagia type: oropharyngeal phase Qualified Code(s): R13.12 - Dysphagia, oropharyngeal phase (13) UTI (urinary tract infection) Qualifiers: Urinary tract infection type: acute cystitis Hematuria presence: with hematuria Qualified Code(s): N30.01 - Acute cystitis with hematuria (16) Diabetes mellitus, type 2 Qualifiers: Diabetes mellitus intermission coordinator insulin use: without intermediate use (17) HTN (hypertension) Qualifiers: Hypertension type: unspecified Qualified Code(s): I10 - Essential (primary) hypertension (19) Constipation Qualifiers: Constipation type: unspecified constipation type Qualified Code(s): K59.00 - Constipation, unspecified
[2024-12-14 16:26] LABS: Bedside Glucose 216 mg/dL (74-106)
[2024-12-14] MEDS: metFORMIN HCl 500 MG Tablet PO (16:54)
[2024-12-14] MEDS: Tamsulosin HCl 0.4 MG Capsule 0.8 MG PO (16:54)
[2024-12-14 17:53] VITALS: BP 124/51; PULSE 59; RESP 17; TEMP 36.8; O2SAT 93
[2024-12-14] MEDS: Sotalol Hydrochloride 80 MG Tablet 120 MG PO (20:34)
[2024-12-14] MEDS: Atorvastatin Calcium 40 MG Tablet PO (20:36)
[2024-12-14] MEDS: Mirtazapine 15 MG Tablet PO (20:36)
[2024-12-14] MEDS: MELATONIN 3 MG TABLET PO (20:36)
[2024-12-14] MEDS: Petrolatum 33% Tube 1 APPLIC TOPICAL (20:43)
[2024-12-14 22:00] VITALS: RESP 16
[2024-12-15 05:42] VITALS: BP 128/59; PULSE 59; RESP 16; TEMP 36.1; O2SAT 94
[2024-12-15] MEDS: Enoxaparin 40 MG/0.4 ML Syringe SC (05:58)
[2024-12-15] MEDS: Acetaminophen 500 MG Tablet 1000 MG PO (05:59)
[2024-12-15] MEDS: Arthritis Pain Compound 60 CLICK TUBE TOPICAL (05:59)
[2024-12-15] MEDS: cycloBENZAPRine HCl 5 MG TABLET PO (06:00)
[2024-12-15 06:10] LABS: Bedside Glucose 151 mg/dL (74-106)
[2024-12-15] MEDS: Clopidogrel Bisulfate 75 MG Tablet PO (08:03)
[2024-12-15] MEDS: Senna/Docusate Sodium 1 Tablet 2 TABLET PO (08:03)
[2024-12-15] MEDS: Aspirin 81 MG TAB.CHEW PO (08:03)
[2024-12-15] MEDS: Pantoprazole Sodium 40 MG Tablet PO (08:03)
[2024-12-15] MEDS: Multivitamins,Therapeutic Tablet 1 TABLET PO (08:03)
[2024-12-15] MEDS: metFORMIN HCl 500 MG Tablet 750 MG PO (08:04)
[2024-12-15] MEDS: Menthol/Lanolin/Calamine/Znox 113 GM Tube 1 APPLIC TOPICAL (08:04)
[2024-12-15 08:12] LABS: Anion Gap 8 (5-15); BUN 15 mg/dL (7-18); BUN/Creat Ratio 21.4 RATIO (10-20); Calcium,Total 9.6 mg/dL (8.5-10.1); Chloride 105 mmol/L (98-107); EST Glomerular Filtration Rate 118 mL/min (>60); Est Glom Filt Rate - Afr Amer 143 mL/min (>60); Estimated Creatinine Clearance 91.51 ml/min; Glucose 188 mg/dL (74-106); Potassium 4.3 mmol/L (3.5-5.1); Sodium Level 138 mmol/L (136-145)
--- NOTE | 2024-12-15 09:39 | EX.DISCHREH ---
Providers Date of Admission: 11/22/24 Date of Discharge: 12/15/24 Primary Care Physician: Dr. Merna Israel MD Consultations 11/24/24 19:48 Consult: General Surgery Routine Consulting Provider: Mukesh Mcfarlane Reason for Consult: possible bowel obstruction EMERGENT Consult: No MD Notified: Yes Date Notified: 11/24/24 Time Notified: 19:48 Method of Notification: Verbal Method of Consult:: In-Person Reason For Visit: SPINAL CORD INJURY/CVA Diagnosis Discharge Diagnosis (1) Debility: Status: Acute Code(s): R53.81 - Other malaise (2) Spinal cord tumor: Status: Inactive Code(s): D49.7 - Neoplasm of unspecified behavior of endocrine glands and other parts of nervous system (3) Status post laminectomy with spinal fusion: Status: Inactive Code(s): Z98.1 - Arthrodesis status (4) Ischemic cerebrovascular accident (CVA): Status: Suspected Code(s): I63.9 - Cerebral infarction, unspecified Plan: CT scan was negative for CVA. No MRI done due to presence of PM. Neurologic deficits consistent with stroke at admission to acute rehab. Has been maqnaged as an acute ischemic stroke. (5) Encephalopathy acute: Status: Acute Code(s): G93.40 - Encephalopathy, unspecified Plan: Much improved during his time on rehab. (6) Facial droop: Status: Acute Code(s): R29.810 - Facial weakness Plan: Nearly resolved at the time of DC from rehab. (7) Right sided weakness: Status: Acute Code(s): R53.1 - Weakness (8) Aphasia: Status: Acute Code(s): R47.01 - Aphasia (9) Dysarthria: Status: Acute Code(s): R47.1 - Dysarthria and anarthria (10) Dysphagia: Status: Acute Code(s): R13.10 - Dysphagia, unspecified Qualifiers: Dysphagia type: oropharyngeal phase Qualified Code(s): R13.12 - Dysphagia, oropharyngeal phase Plan: Much improved at the time of DC and he is on regular textures and thin liquids. (11) Kevin-neglect of right side: Status: Acute Code(s): R41.4 - Neurologic neglect syndrome (12) Urine retention: Status: Resolved Code(s): R33.9 - Retention of urine, unspecified Plan: Mitchell was discontinued on 12/13/24 and PVR's have been all less than 200. (13) UTI (urinary tract infection): Status: Ruled-out Code(s): N39.0 - Urinary tract infection, site not specified Qualifiers: Hematuria presence: with hematuria Urinary tract infection type: acute cystitis Qualified Code(s): N30.01 - Acute cystitis with hematuria Plan: He had some WBC's in the urine but, the first culture grew only Staph epidermidis and a second urine culture grew only Milvia albicans. (14) Mitchell catheter in place: Status: Resolved Code(s): Z97.8 - Presence of other specified devices (15) Dehydration: Status: Resolved Code(s): E86.0 - Dehydration (16) Diabetes mellitus, type 2: Status: Acute Code(s): E11.9 - Type 2 diabetes mellitus without complications Qualifiers: Diabetes mellitus parts counterman insulin use: without parts counterman use (17) HTN (hypertension): Status: Chronic Code(s): I10 - Essential (primary) hypertension Qualifiers: Hypertension type: unspecified Qualified Code(s): I10 - Essential (primary) hypertension (18) High cholesterol: Status: Chronic Code(s): E78.00 - Pure hypercholesterolemia, unspecified (19) Constipation: Status: Resolved Code(s): K59.00 - Constipation, unspecified Qualifiers: Constipation type: unspecified constipation type Qualified Code(s): K59.00 - Constipation, unspecified (20) Ileus: Status: Resolved Code(s): K56.7 - Ileus, unspecified Plan: Present at admission to rehab. Resolved. (21) Depression: Status: Acute Code(s): F32.A - Depression, unspecified Qualifiers: Depression Type: reactive depression Qualified Code(s): F32.9 - Major depressive disorder, single episode, unspecified Plan: doing well on Remeron 15 mg. He is sleeping through the night and appetite is better.......daniella when he is eating things he likes.......like sweets. Very motivated to keep up with therapy and get home. Always pleasant. No agitation. No more hallucinations. Plan 1. [facility] therapy prior to hopefully returning home. 2. Needs to follow up with Dr. Joel Herman following DC from rehab. Medications at Discharge Home Medications aspirin 81 mg tablet,delayed release (Adult Aspirin Regimen) 81 mg PO DAILY heart health 12/31/22 sotalol 120 mg tablet 120 mg PO QHS heart 12/31/22 clopidogrel 75 mg tablet 75 mg PO DAILY afib 06/03/23 enoxaparin 40 mg/0.4 mL subcutaneous syringe (Lovenox) 40 mg subcut DAILY DVT Prophylaxis 11/22/24 multivitamin (Daily Multi-Vitamin tablet) 1 tab PO DAILY supplement 11/22/24 acetaminophen 500 mg tablet 1,000 mg (2 x 500 mg) PO Q8 #1 TAB 12/14/24 atorvastatin 40 mg tablet 40 mg PO QHS #1 TAB 12/14/24 bisacodyl 10 mg rectal suppository 10 mg MT X1 PRN Constipation #1 ea 12/14/24 cyclobenzaprine 5 mg tablet 5 mg PO 0700,1500 #1 TAB 12/14/24 melatonin 3 mg tablet 3 mg PO QHS #1 TAB 12/14/24 metformin 500 mg tablet 500 mg PO SUPPER #1 TAB 12/14/24 metformin 500 mg tablet 750 mg (1.5 x 500 mg) PO BREAKFAST #1 TAB 12/14/24 mirtazapine 15 mg tablet 15 mg PO 2000 #1 TAB 12/14/24 oxycodone 5 mg tablet 5 mg PO Q6H PRN pain 7 days #5 tabs 12/14/24 pantoprazole 40 mg tablet,delayed release 40 mg PO DAILY #1 TAB 12/14/24 saliva substitute combo no.9 (Biotene Dry Mouth Oral Rinse mouthwash) 15 ml mucous membrane 5X/DAY PRN Dry Mouth #15 mL 12/14/24 sennosides 8.6 mg-docusate sodium 50 mg tablet (Stimulant Laxative Plus) 2 tab PO BID #1 TAB 12/14/24 tamsulosin 0.4 mg capsule 0.8 mg (2 x 0.4 mg) PO DAILY@1730 #1 cap 12/14/24 Hospital Course Operations - (Laminectomy and spinal fusion at [facility] by Dr. 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 He has had a known mass of the spinal cord since 2019. The mass was being monitored and no intervention was done. He began to have a lot of falls, difficulty walking and bowel and bladder incontinence. On 11/14/2024 at [facility] he underwent C4-T3 posterior decompression and fusion with tumor debulking. Preoperatively he had a transthoracic echocardiogram that showed an EF of 45 to 50% with left ventricular hypokinesis. No atrial thrombus was observed. Bilateral lower extremity ultrasounds were obtained and were negative for DVT. He had a Mitchell catheter placed for urine retention and developed a UTI and was placed on Bactrim. He also had yeast in the urine and was started on Diflucan but, this was discontinued due to QT prolongation. He had increased confusion a few days post which was attributed to UTI. Per his he became progressively more confused despite antibiotics. A CT head was done on 11/20/24 per the therapy notes but, it was negative for any acute pathology. The physician PN from 11/21/24 says he is A and oriented X3. Therapy notes from 11/20/24 say he was mildly confused. His told me that over the 3 days prior to transfer to rehab the confusion continued to increase. The physician note from 11/21 documented the face was symmetric and he had 5/5 strength in the LLE with weakness in the R arm and R leg (the weakness on the R side predated the surgery). The patient auto dc'd the drain on 11/20/24 while confused. The patient was transferred to the acute inpt rehab unit at [facility] on 11/22/24 for 3 hours of therapy daily to restore function/independence at or near his level prior to the recent surgery.. At arrival arrival to rehab he was markedly confused, restless, trying to climb out of bed and not cooperative. the ambulance crew related that he was very confused and restless. Not able to follow commands. We were told on 11/22/24 by Mant[place]ie that he was A&O X3 at the time of DC. He had a Mitchell catheter present at admission to rehab. He was not on medication for BPH. He was given 2 mg of Haldol IM and he calmed down and was more cooperative. On physical exam he was awake but oriented only to person. He was having visual hallucinations and was trying to reach all his arms to grab something that was not there. He was restless. He had severe dysarthria and aphasia. He had disconjugate gaze. He had weakness in both lower extremities but the right was much weaker than the left. He had decreased sensation in the right lower extremity and also in the right upper extremity. He had a right facial droop. NIHSS was 16. A noncontrast CT brain showed no evidence of acute intracranial abnormality. CTA of the head and neck showed no large vessel occlusion and only mild calcific plaque in both internal carotid arteries. This study was consistent with chronic small vessel disease. White blood cell count was elevated at 12.7 but he was on a Decadron taper. He was afebrile. Sodium was mildly decreased at 133 and the BUN was 20 with a creatinine of 0.68. LFTs were unremarkable. Procalcitonin was normal at 0.09. UA had 10-25 WBCs per high-power field and 25-50 RBCs per field. There was no bacteria seen. There was rare yeast. The WBC's were presumed to be due to bleeding from the Mitchell. The urine culture was positive for 1000-10,000 colonies of Milvia albicans and less than 1000 colonies of mixed gram-positive organisms. Bactrim was discontinued (he was on this at presentation to rehab). MRI could not be done due to presence of PM (he is pacer dependent with HR of 60 at all times). He was presumed to have had a stroke based on symptoms and PE. Aspirin was continued but, Plavix was not added due to increased risk of bleeding from the recent spinal surgery. He had been taking Crestor 5 mg daily and was transitioned to Atorvastatin 40 mg. Until the cultures and lab were back he was started on Vancomycin and Cefepime due to the elevated WBC. His abd was distended at presentation to rehab and this progressed. A KUB was obtained on 11/24/2024 and showed marked distention of the stomach and prominent loops of large bowel. Colon measured up to 8.8 cm in its greatest transaxial dimension. He was made NPO and started on IV fluids. Consult was obtained from general surgery and a NG was placed. CT of the abd and pelvis was done on 11/25/24. There was no distended small or large bowel and he was started on clear liquids which he tolerated without any recurrence of distension. Diet was further advanced to regular textures over the next 24-[address] found him to have mild oropharyngeal dysphagia. He was placed on a soft diet with bite-size pieces and thin liquids with one-to-one staff supervision to assist/feed. He scored 22 out of a possible 50 on his brief cognitive assessment tool. On the initial physical therapy evaluation he had 1/5 strength at the ankle on the right and was unable to stand. He had marked decrease in sensation to the right lower extremity with decreased proprioception. There was moderate hypertonicity. He was able to sit on the EOB with mod-max assist only. He had severe retro lean. 3 attempts were made to stand him with 3 people and he was unable to accomplish standing. A Jennifer Lift was used to stand him. Aphasia, dysarthria and cognition gradually improved with daily ST. Speech is much more intelligible at DC and I can understand most of what he is saying without having him repeat himself. He is able to do 2 sit to stands in 30 seconds with mod to max assist in the parallel bars at the time of discharge. He is still nonambulatory. He is able to propel the wheelchair up to 50 feet at standby assist on even surfaces. He is able to maintain static standing up to 60 seconds in the parallel bars at mod to max assist. He is now able to use the sliding board to transfer from the bed to the with MOD assist. He has progressed from max assistance with eating to supervision/set up. He is also supervision/set up for grooming. He requires moderate assistance with bathing, minimal assistance with upper body dressing and max assist for lower body dressing. He still requires total assistance with toilet transfer and toileting. Most recent lab showed a normal white blood cell count of 5.9 and a stable hemoglobin at 11.4. Platelets were normal and the differential was unremarkable. Sodium on the day of DC to SNF was 138 with a potassium of 4.3. BUN is 15 with a creatinine of 0.7. He was started on Losartan 25 mg while on rehab for DM/proteinuria/HTN. With the addition of Losartan the creat increased from 0.72 to 0.84 and Losartan was discontinued. Creat at admission to rehab was 6.8. BS's are adequately controlled at DC from rehab with no hypoglycemia. His intake is somewhat variable and BS's can drop when he decides not to eat. Blood sugars for the 72 hours preceding discharge from rehab have ranged from 88-216. HR is 59-60 always. He is basically completely paced on an EKG done while on rehab. No lightheadedness at DC. His tongue is always dry and has a cobblestone appearance. The Biotene helps with the dryness. Blood pressure for 48 hours prior to discharge has ranged from 108/48 to 128/59. Deondre was transferred to the [facility] on 12/15/24 for additional therapy prior to hopefully returning home. His came in for family training prior to DC from rehab and she is not able to care for him at home. Physical Exam Const alert and no apparent distress Constitutional Narrative: appropriate. Making good eye contact. Able to follow commands. He is able to tell me his age, his name and that he is in rehab. He knows he had surgery and then a stroke. General Appearance: cooperative and well kempt HEENT HEENT Narrative: Dry mouth with a nodular/cobblestone appearance to the lingual surface of the tongue Tongue is not coated. Eyes PERRL, EOMs intact bilaterally, conjunctivae normal and no scleral icterus Eyes Narrative: No discharge from the eyes. No visual field cuts. No visual extinction Neck supple and no carotid bruits General: trachea midline Chest Chest: symmetrical chest wall rise Resp normal respiratory effort and clear to auscultation bilaterally Resp Narrative: Lying flat on the mat in the therapy room with no SOB. Coarse crackles in the R base come and go Effort and Inspection: Negative for tachypneic Cardio regular rate, regular rhythm, no murmurs, no rub and no gallops Cardio Narrative: No ectopy. HR is consistently 60 and EKG shows dual AV pacing. GI normal to inspection, nondistended, normoactive bowel sounds, soft to palpation and non-tender GI Narrative: No guarding with palpation Having regular BM's Narrative: Fo,lila cath was removed on 12/13/24 and post void residuals X 3 have all been less than 200. No dysuria. Able to use the urinal without assist. Extremity no calf tenderness General Extremity: Negative for edema Skin Skin Narrative: The posterior cervical incision is intact with no dehiscence and no erythema or DC. He still complains of pain, predominately in the L upper trapezius area but, the pain is controlled with the medications and massage. Rashes: no rashes Neuro Neuro Narrative: Facial droop is much improved. Better strength on the R side. Speech is much easier to understand with a lot less slurring. Thought process and memory are improving. Still having some difficulty with word finding at times. Was able to lift the RLE off the bed today for about 1-2 inches but, it fell to the bed before a count of 5. Still much weaker than the LLE. Weak dorsiflexion of the R foot. Good strength with plantar flexion. See NIHSS Psych affect normal Psych Narrative: calm and making good eye contact. Making jokes and is more interactive with staff. Appearance: appropriate Weight / BMI Weight Weight: 193 lb 12.581 oz Body Mass Index (BMI) 27.1 ABG / Lab / Microbiology Data 12/12/24 05:18 12/15/24 07:18 Laboratory: Laboratory Results - last 24 hr 12/14/24 16:07: POC Glucose 216 H 12/15/24 05:22: POC Glucose 151 H 12/15/24 07:18: Sodium 138, Potassium 4.3, Chloride 105, Carbon Dioxide 25.0, Anion Gap 8, BUN 15, Creatinine 0.70, Estim Creat Clear Calc 91.51, Est GFR (MDRD) Af Amer 143, Est GFR (MDRD) Non-Af 118, BUN/Creatinine Ratio 21.4 H, Glucose 188 H, Calcium 9.6 Microbiology: Microbiology 12/07/24 09:00 Urine Catheter - Catheter Urine Culture - Final Milvia albicans 11/23/24 11:25 Blood Culture (Wb) - Anticubital Right Blood Culture - Final No growth in 5 days. 11/25/24 16:50 Stool Stool Occult Blood (DEEDEE) - Final 11/22/24 14:35 Urine Catheter - Mitchell Urine Culture - Final Milvia albicans Mixed Gram Positive Organisms Indicators for Scoring Admitted with or Primary Diagnosis of CVA/Stroke: No (UNSURE, NOTING R SIDED WEAKNESS BUT CT (-)) Hx of CVA/Stroke: No Modified Facundo Score MRS Score at time of Evaluation: 4-Moderate/severe disability NIHSS NIHSS 1a. Level of Consciousness: Alert; keenly responsive 1b. LOC Questions: Answers BOTH questions correctly. 1c. LOC Commands: Performs both tasks correctly. 2. Best Gaze: Normal 3. Visual: No visual loss 4. Facial Palsy: Minor paralysis (flattened nasolabial fold, asymmetry on smiling) (m uch better than at admission.... now only with mild R facial droop) 5a. Left Arm: No drift; arm holds 90 (or 45) degrees for full 10 seconds 5b. Right Arm: No drift; arm holds 90 (or 45) degrees for full 10 seconds (The R dominant arm is weaker than the left and R hand pedal assembler is still decreased when compared to the left. ) 6a. Left Leg: No drift; leg holds 30-degree position for full 5 seconds 6b. Right Leg: Some effort against gravity; 7. Limb Ataxia: Absent (I am now able to do the test on the legs.......I could not at admission due to severe weakness and inability to move his legs. ) 8. Sensory: Normal; no sensory loss 9. Best Language: [id number] aphasia; (still having some problems with word finding at times. ) 10. Dysarthria: [id number] dysarthria; 11. Extinction and Inattention: No abnormality Total: 5 (Down from 16 at admission to rehab. ) Stroke Questions Stroke Team Activated: No D/C Instructions DC O2, CPAP, BIPAP Needs RN Home O2 qualification: No Data to Display Home O2 Discharge instructions: No Please Follow Up With: neurology Meaningful Use Info Meaningful Use Meaningful Use Diagnoses (Choose all that apply): Ischemic CVA CVA Therapy Assessed for PT,OT and/or ST?: Yes Ischemic Stroke Antithrombotic order at d/c?: Yes Dx of Atrial fib/flutter?: No Anticoagulant at discharge?: No Reason anticoagulant not ordered: Treatment not Indicated Statin Dosing Therapy Reference: STATIN DOSE THERAPY REFERENCE: * Patients > 75 years receive moderate or high dose statin therapy. * Patients 75 years or YOUNGER should receive HIGH intensity statin dose unless contraindicated. You will be required to document reason for non-treatment if statin daily dose does not meet guidelines. HIGH DOSE STATIN THERAPY DAILY Atorvastatin > than or = to 40 mg Rosuvastatin > than or = to 20 mg Amlodipine + Atorvastatin > than or = to 2.5/40 mg Ezetimibe + Simvastatin 10/80 mg Simvastatin 80mg Statins at discharge?: Yes If patient is 75 or younger, pt will be discharged on HIGH intensity statin.: Yes Primary Dx Acute Ischemic CVA?: Yes IV thrombolytic ordered during stay?: No Reason IV thrombolytic not ordered: Procedure not Indicated Discharge Plan Admission Admit Date/Time: 11/22/24 11:40 Primary Reason for Your Visit: POST STROKE DEBIITY Attending Provider: Donna Walton Primary Care Provider: Merna Israel Consulting Providers: Mukesh Mcfarlane Discharge Orders/Prescriptions Prescriptions: New acetaminophen 500 mg Tablet 1,000 mg PO Q8 Qty: 1 0RF bisacodyl 10 mg Suppository 10 mg MT X1 PRN (Reason: Constipation) Qty: 1 0RF cyclobenzaprine 5 mg Tablet 5 mg PO 0700,1500 Qty: 1 0RF melatonin 3 mg Tablet 3 mg PO QHS Qty: 1 0RF atorvastatin 40 mg Tablet 40 mg PO QHS Qty: 1 0RF metformin 500 mg Tablet 500 mg PO SUPPER Qty: 1 0RF metformin 500 mg Tablet 750 mg PO BREAKFAST Qty: 1 0RF sennosides-docusate sodium [Stimulant Laxative Plus] 8.6-50 mg Tablet 2 tab PO BID Qty: 1 0RF pantoprazole 40 mg Tablet,Delayed Release (Dr/Ec) 40 mg PO DAILY Qty: 1 0RF mirtazapine 15 mg Tablet 15 mg PO 2000 Qty: 1 0RF Biotene Dry Mouth Oral Rinse Mouthwash 15 ml mucous membrane 5X/DAY PRN (Reason: Dry Mouth) Qty: 15 0RF tamsulosin 0.4 mg Capsule 0.8 mg PO DAILY@1730 Qty: 1 0RF Continued sotalol 120 mg tablet 120 mg PO QHS aspirin [Adult Aspirin Regimen] 81 mg tablet,delayed release (DR/EC) 81 mg PO DAILY clopidogrel 75 mg tablet 75 mg PO DAILY enoxaparin [Lovenox] 40 mg/0.4 mL syringe 40 mg subcut DAILY multivitamin [Daily Multi-Vitamin] Tablet 1 tab PO DAILY oxycodone 5 mg tablet 5 mg PO Q6H PRN (Reason: pain) 7 Days Qty: 5 0RF Rx Instructions: hAS NOT TAKEN SINCE 12/08/24 Discontinued losartan 100 mg tablet 100 mg PO DAILY hydrochlorothiazide 25 mg tablet 12.5 mg PO DAILY acetaminophen 500 mg tablet 1,000 mg PO Q8 PRN (Reason: pain) cyclobenzaprine 10 mg tablet 10 mg PO TID fluconazole 200 mg tablet 200 mg PO DAILY famotidine [Pepcid] 20 mg tablet 20 mg PO DAILY sulfamethoxazole-trimethoprim 800-160 mg tablet 1 tab PO Q12H Patient Comments: [NO ORIGINAL SIG] metformin 750 mg tablet extended release 24 hr 750 mg PO DAILY rosuvastatin 5 mg tablet 5 mg PO QHS glipizide 10 mg tablet extended release 24hr 10 mg PO BID Qty: 180 1RF Jardiance 25 mg tablet 25 mg PO DAILY Qty: 90 1RF Mounjaro 5 mg/0.5 mL pen injector 5 mg subcut QWEEK Qty: 2 5RF Referrals / Follow Up: mildred her[facility] [Other] - 01/29/25 Merna Israel MD [Primary Care Provider] - Disposition Disposition (needs filled in before D/C Order can be placed): Detention Facility Charges/Coding Visit Charges Inpatient E&M: 47214 Disch Hosp >30min
[2024-12-15 12:57] VITALS: BP 128/59; PULSE 59; RESP 16; TEMP 36.1; O2SAT 94
--- NOTE | 2024-12-15 12:58 | NURSING ---
[facility]. report call to Caitlin
== END 2024-12-15 13:11 | disposition skilled nursing facility (03) | DRG 57 ==
PROVIDERS: Admitting Provider Internal Medicine; PCP Internal Medicine; Referring Provider Internal Medicine; Visit Provider Internal Medicine
DX: I69.351 Hemiplegia and hemiparesis following cerebral infarction affecting right dominant side (principal); E87.1 Hypo-osmolality and hyponatremia; K56.7 Ileus, unspecified; B37.41 Candidal cystitis and urethritis; N30.01 Acute cystitis with hematuria; L89.312 Pressure ulcer of right buttock, stage 2; I69.320 Aphasia following cerebral infarction; I69.322 Dysarthria following cerebral infarction; I48.91 Unspecified atrial fibrillation; E11.40 Type 2 diabetes mellitus with diabetic neuropathy, unspecified; I10 Essential (primary) hypertension; F32.9 Major depressive disorder, single episode, unspecified; I69.392 Facial weakness following cerebral infarction; Z79.4 Long term (current) use of insulin; E78.00 Pure hypercholesterolemia, unspecified; E87.6 Hypokalemia; K57.90 Diverticulosis of intestine, part unspecified, without perforation or abscess without bleeding; I25.10 Atherosclerotic heart disease of native coronary artery without angina pectoris; R15.9 Full incontinence of feces; T83.511D Infection and inflammatory reaction due to indwelling urethral catheter, subsequent encounter; R13.12 Dysphagia, oropharyngeal phase; D49.7 Neoplasm of unspecified behavior of endocrine glands and other parts of nervous system; R33.9 Retention of urine, unspecified; Z95.5 Presence of coronary angioplasty implant and graft; Z79.84 Long term (current) use of oral hypoglycemic drugs; Z98.1 Arthrodesis status; Z95.0 Presence of cardiac pacemaker; Z79.899 Other long term (current) drug therapy; Z79.01 Long term (current) use of anticoagulants; B96.89 Other specified bacterial agents as the cause of diseases classified elsewhere; Y73.1 Therapeutic (nonsurgical) and rehabilitative gastroenterology and urology devices associated with adverse incidents; R21 Rash and other nonspecific skin eruption
CPT/HCPCS: 36415; 70450; 70496; 70498; 71045; 74018; 74177; 80048; 80053; 80202; 81001; 82274; 82565; 82962; 83605; 83735; 83880; 84100; 84145; 85025; 85027; 85652; 86140; 87040; 87086; 87088; 92507; 92523; 92526; 92610; 93005; 97110; 97112; 97116; 97129; 97130; 97162; 97166; 97530; 97535; 97542; 97803; Q9967; A4216; J1610